=== PATIENT | female | born 1945 | race Hispanic/Latino ===

== ENCOUNTER 2017-01-16 11:59 | Emergency (ER) | payer MEDICARE, MEDICAID ==
[2017-01-16 11:59] VITALS: BMI 29.9
[2017-01-16 12:08] VITALS: BP 151/69; PULSE 77; RESP 18; TEMP 98.2; O2SAT 99
--- NOTE | 2017-01-16 12:22 | ED PDOC ---
Lower Extremity Pain/Injury Time Seen by Provider: 01/16/17 12:10 Chief Complaint (Nursing): Trauma Chief Complaint (Provider): Right foot pain History Per: Patient History/Exam Limitations: no limitations Onset/Duration Of Symptoms: Days (3) Current Symptoms Are (Timing): Still Present Additional Complaint(s): The patient is a 71yo female, presents to the ED for evaluation of right ankle pain, sustained after she fell 3 days ago and in the process, twisted her ankle. Patient reports she has been walking on the foot and states she takes her prescribed percocet an morphine for pain management. She denies any head or neck injury. She reports her tetanus is up to date. Patient offers no additional medical complaints. - Ankle/Foot Description Of Injury: Twisted Past Medical History Reviewed: Historical Data, Nursing Documentation, Vital Signs Vital Signs: Last Vital Signs Temp 98.2 F 01/16/17 12:04 Pulse 77 01/16/17 12:04 Resp 18 01/16/17 12:04 BP 151/69 H 01/16/17 12:04 Pulse Ox 99 01/16/17 12:04 - Medical History PMH: Anemia, Anxiety, Arthritis, Asthma, Depression, Diabetes (IDDM), Diverticulitis (s/p Erinn procedure), Fractures, HTN, Hypercholesterolemia, Hyperlipidemia, TIA Denies: CHF, COPD, HIV, Hypothyroidism, Chronic Kidney Disease, Rheumatoid Arthritis - Surgical History Surgical History: Back Surgery, Cholecystectomy - Family History Family History: States: Unknown Family Hx - Social History Current smoker - smoking cessation education provided: No Ex-Smoker (has not smoked in the last 12 months): No Alcohol: None Drugs: Denies - Home Medications Home Medications: Ambulatory Orders Medication Instructions Recorded Amino Acids/Protein Hydrolys 30 ml PO DAILY 06/06/16 [Prosource No Carb Liquid Pkt] Aspirin [Aspirin Chewable] 81 mg PO DAILY 06/06/16 Atorvastatin [Lipitor] 40 mg PO HS 06/06/16 Calcitonin ([place]) [Miacalcin] 1 spray SHERRILL DAILY 06/06/16 DULoxetine [Cymbalta] 30 mg PO DAILY 06/06/16 Dicyclomine [Bentyl] 10 mg PO QID 06/06/16 Ergocalciferol [Drisdol 50,000 1 cap PO QWK 06/06/16 Intl Units Cap] Ferrous Sulfate [Feosol] 325 mg PO DAILY 06/06/16 Lisinopril [Zestril] 10 mg PO DAILY 06/06/16 Montelukast [Singulair] 10 mg PO HS 06/06/16 Morphine [Morphine Immediate 30 mg PO BID PRN 06/06/16 Release Tab] Ondansetron [Zofran Tab] 4 mg PO Q6 PRN 06/06/16 Pantoprazole Sodium [Protonix] 40 mg PO DAILY 06/06/16 Sennosides/Docusate Sodium [Ra 1 tab PO HS 06/06/16 Senna Plus Tablet] Sertraline [Zoloft] 200 mg PO DAILY 06/06/16 Tramadol HCl [Ultram] 50 mg PO Q8H 06/06/16 Ciprofloxacin IV [Cipro] 400 mg IVPB Q12 #28 vial 06/17/16 Morphine [Morphine Extended 30 mg PO Q12 #30 tabsr 06/17/16 Release Tab] Vancomycin 1 GM [Vancomycin 1GM in 1 gm IVPB DAILY #14 bag 06/17/16 Normal Saline Addvantage] Zolpidem [Ambien] 5 mg PO HS #10 tab 06/17/16 metroNIDAZOLE 500mg/100ml NS 500 mg IVPB Q8H #42 bag 06/17/16 [Flagyl 500MG/100ML NS] Epoetin Josh [Procrit] 40,000 unit SC QWK #4 ml 06/18/16 Cephalexin [cephalexin] 500 mg PO QID #28 cap 01/16/17 - Allergies Allergies/Adverse Reactions: Allergies Allergy/AdvReac Type Severity Reaction Status Date / Time iodine Allergy RASH Verified 01/16/17 12:04 Sulfa (Sulfonamide Allergy RASH Verified 04/14/16 10:05 Antibiotics) Review of Systems ROS Statement: Except As Marked, All Systems Reviewed And Found Negative Musculoskeletal: Positive for: Foot Pain (right ankle pain). Negative for: Neck Pain Neurological: Negative for: Headache Physical Exam - Reviewed Nursing Documentation Reviewed: Yes Vital Signs Reviewed: Yes - Physical Exam Appears: Positive for: Non-toxic, No Acute Distress Head Exam: Positive for: ATRAUMATIC, NORMAL INSPECTION, NORMOCEPHALIC Neck: Positive for: Supple Cardiovascular/Chest: Positive for: Regular Rate, Rhythm Respiratory: Negative for: Respiratory Distress Pulses-Dorsalis Pedis (L): 2+ Pulses-Dorsalis Pedis (R): 2+ Back: Positive for: Other (Stage III sacral decubitus ulcer, minimal induration , serous drainage, no bleeding, no fluctuance) Extremity: Positive for: Tenderness (tenderness to right lateral malleolus with edema noted.), Deformity (no obvious deformity noted), Other (superficial abrasions at lateral metatarsal area. no induration or bleeding noted. 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 Negative for: Motor/Sensory Deficits - ECG O2 Sat by Pulse Oximetry: 99 (RA) Pulse Ox Interpretation: Normal - Physician Consult Information Time Consulting Physican Contacted: 14:19 Physician Contacted: Nichole Burton Outcome Of Conversation: Agrees with antibiotic Rx for sacral decub, recommends Keflex, told daughter to increase Vit D. Medical Decision Making Medical Decision Making: Time: 1217 Impression: Right ankle injury, sprain vs. fracture Plan: -- XR Right foot -- XR Right ankle Reassess Time: 1:15 --Spoke with podiatry, who will come and evaluate the patient Time: 1:33 XR Ankle FINDINGS: BONES: There is oblique lucency through the distal right fibula on the oblique and frontal view. It is uncertain as to whether this reflects healed fracture or recent fracture given the patient's diffuse osteopenia limiting the study. No ankle mortise widening is seen. No fracture is identified elsewhere. Calcaneus is intact. Prominent calcaneal spurs are noted. Soft tissue swelling is seen both anteriorly and laterally. JOINTS: No ankle mortise widening. Talar dome is normal in outline. Degenerative changes are seen in the ankle region. SOFT TISSUES: Lateral and anterior ankle soft tissue swelling. OTHER FINDINGS: None. IMPRESSION: Subtle linear oblique lucency through the distal fibular shaft which may suggest he indeterminate age fracture and should be correlated with patient's symptoms. Moderate soft tissue swelling overlying the lateral and anterior ankle region. Base of the 5th metatarsal is intact. XR Foot FINDINGS: BONES: Moderate hallux valgus deformity is seen. No appreciable fracture of the metatarsal or tarsal bones is noted. Phalanges are intact. No dislocation is seen. Base of the 5th metatarsal is intact. Cuboid bone is intact. Calcaneal spurs are identified. JOINTS: No dislocation. Subtalar joint is unremarkable. SOFT TISSUES: Nonspecific soft tissue swelling. OTHER FINDINGS: None. IMPRESSION: Soft tissue swelling. No appreciable fracture of the right foot. Please see ankle x-ray report same day. Scribe Attestation: Documented by Nancy Armenta and Arron Duarte acting as a scribe for Rosemary Gonzalez MD. Provider Attestation: All medical record entries made by the Scribe were at my direction and personally dictated by me. I have reviewed the chart and agree that the record accurately reflects my personal performance of the history, physical exam, medical decision making, and the department course for this patient. I have also personally directed, reviewed, and agree with the discharge instructions and disposition. Disposition - Clinical Impression Clinical Impression: Sacral decubitus ulcer, stage III, Fracture of distal fibula - Patient ED Disposition Is Patient to be Admitted: No Counseled Patient/Family Regarding: Studies Performed, Diagnosis, Need For Followup, Rx Given - Disposition Referrals: Podiatry Clinic [Outside] Nichole Burton MD [Family Provider] - Disposition: Routine/Home Disposition Time: 14:15 Condition: STABLE Prescriptions: Cephalexin [cephalexin] 500 mg PO QID #28 cap Instructions: Leg Fracture (ED), How to Prevent Pressure Ulcers (ED), Pressure Ulcer (ED) Forms: [employer] (Polish) - POA Present On Arrival: None
--- NOTE | 2017-01-16 13:32 | RAD ---
PROCEDURE: Right Foot Radiographs. HISTORY: Fall COMPARISON: None. FINDINGS: BONES: Moderate hallux valgus deformity is seen. No appreciable fracture of the metatarsal or tarsal bones is noted. Phalanges are intact. No dislocation is seen. Base of the 5th metatarsal is intact. Cuboid bone is intact. Calcaneal spurs are identified. JOINTS: No dislocation. Subtalar joint is unremarkable. SOFT TISSUES: Nonspecific soft tissue swelling. OTHER FINDINGS: None. IMPRESSION: Soft tissue swelling. No appreciable fracture of the right foot. Please see ankle x-ray report same day.
--- NOTE | 2017-01-16 13:35 | RAD ---
PROCEDURE: Right Ankle Radiographs. HISTORY: Fall COMPARISON: None FINDINGS: BONES: There is oblique lucency through the distal right fibula on the oblique and frontal view. It is uncertain as to whether this reflects healed fracture or recent fracture given the patient's diffuse osteopenia limiting the study. No ankle mortise widening is seen. No fracture is identified elsewhere. Calcaneus is intact. Prominent calcaneal spurs are noted. Soft tissue swelling is seen both anteriorly and laterally. JOINTS: No ankle mortise widening. Talar dome is normal in outline. Degenerative changes are seen in the ankle region. SOFT TISSUES: Lateral and anterior ankle soft tissue swelling. OTHER FINDINGS: None. IMPRESSION: Subtle linear oblique lucency through the distal fibular shaft which may suggest he indeterminate age fracture and should be correlated with patient's symptoms. Moderate soft tissue swelling overlying the lateral and anterior ankle region. Base of the 5th metatarsal is intact.
== END 2017-01-16 14:52 | disposition home or self-care (01) ==
LOC: H.ER 11:59
DX: S82.831A Other fracture of upper and lower end of right fibula, initial encounter for closed fracture (principal); W19.XXXA Unspecified fall, initial encounter; M77.30 Calcaneal spur, unspecified foot; L89.153 Pressure ulcer of sacral region, stage 3

== ENCOUNTER 2017-04-01 12:37 | Emergency (ER) | payer MEDICARE, MEDICAID ==
[2017-04-01 12:46] VITALS: BMI 36.6
[2017-04-01 12:47] VITALS: BP 145/69; PULSE 79; RESP 18; TEMP 98.3; O2SAT 99
--- NOTE | 2017-04-01 13:50 | ED PDOC ---
Lower Extremity Pain/Injury Time Seen by Provider: 04/01/17 12:51 Chief Complaint (Nursing): Lower Extremity Problem/Injury Chief Complaint (Provider): leg pain History Per: Patient History/Exam Limitations: no limitations Onset/Duration Of Symptoms: Days (x2 months) Current Symptoms Are (Timing): Still Present Additional Complaint(s): 71 year old female with previous medical history of hypertension, hypercholesterolemia, diabetes and TIA, who was referred to the emergency department by clinic today for a lower extremity ultrasound to evaluate for possibly blood clots following right-sided calf pain status post fall 2 months ago. Patient has a walking boot applied to right foot. PMD: Nichole Burton Past Medical History Reviewed: Historical Data, Nursing Documentation, Vital Signs Vital Signs: Last Vital Signs Temp 98.3 F 04/01/17 12:46 Pulse 79 04/01/17 12:46 Resp 18 04/01/17 12:46 BP 145/69 04/01/17 12:46 Pulse Ox 99 04/01/17 12:46 - Medical History PMH: Anemia, Anxiety, Arthritis, Asthma, Depression, Diabetes (IDDM), Diverticulitis (s/p Erinn procedure), Fractures, HTN, Hypercholesterolemia, Hyperlipidemia, TIA Denies: CHF, COPD, HIV, Hypothyroidism, Chronic Kidney Disease, Rheumatoid Arthritis - Surgical History Surgical History: Back Surgery, Cholecystectomy - Family History Family History: States: Unknown Family Hx - Home Medications Home Medications: Ambulatory Orders Medication Instructions Recorded Amino Acids/Protein Hydrolys 30 ml PO DAILY 06/06/16 [Prosource No Carb Liquid Pkt] Aspirin [Aspirin Chewable] 81 mg PO DAILY 06/06/16 Atorvastatin [Lipitor] 40 mg PO HS 06/06/16 Calcitonin ([place]) [Miacalcin] 1 spray SHERRILL DAILY 06/06/16 DULoxetine [Cymbalta] 30 mg PO DAILY 06/06/16 Dicyclomine [Bentyl] 10 mg PO QID 06/06/16 Ergocalciferol [Drisdol 50,000 1 cap PO QWK 06/06/16 Intl Units Cap] Ferrous Sulfate [Feosol] 325 mg PO DAILY 06/06/16 Lisinopril [Zestril] 10 mg PO DAILY 06/06/16 Montelukast [Singulair] 10 mg PO HS 06/06/16 Morphine [Morphine Immediate 30 mg PO BID PRN 06/06/16 Release Tab] Ondansetron [Zofran Tab] 4 mg PO Q6 PRN 06/06/16 Pantoprazole Sodium [Protonix] 40 mg PO DAILY 06/06/16 Sennosides/Docusate Sodium [Ra 1 tab PO HS 06/06/16 Senna Plus Tablet] Sertraline [Zoloft] 200 mg PO DAILY 06/06/16 Tramadol HCl [Ultram] 50 mg PO Q8H 06/06/16 Ciprofloxacin IV [Cipro] 400 mg IVPB Q12 #28 vial 06/17/16 Morphine [Morphine Extended 30 mg PO Q12 #30 tabsr 06/17/16 Release Tab] Vancomycin 1 GM [Vancomycin 1GM in 1 gm IVPB DAILY #14 bag 06/17/16 Normal Saline Addvantage] Zolpidem [Ambien] 5 mg PO HS #10 tab 06/17/16 metroNIDAZOLE 500mg/100ml NS 500 mg IVPB Q8H #42 bag 06/17/16 [Flagyl 500MG/100ML NS] Epoetin Josh [Procrit] 40,000 unit SC QWK #4 ml 06/18/16 Cephalexin [cephalexin] 500 mg PO QID #28 cap 01/16/17 - Allergies Allergies/Adverse Reactions: Allergies Allergy/AdvReac Type Severity Reaction Status Date / Time iodine Allergy RASH Verified 01/16/17 12:04 Sulfa (Sulfonamide Allergy RASH Verified 04/14/16 10:05 Antibiotics) Review of Systems ROS Statement: Except As Marked, All Systems Reviewed And Found Negative Musculoskeletal: Positive for: Leg Pain (right calf and right ankle), Foot Pain (rigth ankle) Physical Exam - Reviewed Nursing Documentation Reviewed: Yes Vital Signs Reviewed: Yes - Physical Exam Appears: Positive for: Well, Non-toxic, No Acute Distress Head Exam: Positive for: ATRAUMATIC Skin: Positive for: Normal Color Eye Exam: Positive for: Normal appearance ENT: Positive for: Normal ENT Inspection Neck: Positive for: Normal Extremity: Positive for: Calf Tenderness (Right ) Neurologic/Psych: Positive for: Alert, Oriented - ECG O2 Sat by Pulse Oximetry: 99 (RA) Pulse Ox Interpretation: Normal Medical Decision Making Medical Decision Making: Initial Impression: Right calf pain Initial Plan: * US duplex LE Us (-) for DVT Scribe Attestation: Documented by Lisa Pop, acting as a scribe for Josy Snider PA-C. Provider Scribe Attestation: All medical record entries made by the Scribe were at my direction and personally dictated by me. I have reviewed the chart and agree that the record accurately reflects my personal performance of the history, physical exam, medical decision making, and the department course for this patient. I have also personally directed, reviewed, and agree with the discharge instructions and disposition. Disposition - Clinical Impression Clinical Impression: Calf pain - Patient ED Disposition Is Patient to be Admitted: No Counseled Patient/Family Regarding: Diagnosis, Need For Followup - Disposition Disposition: Routine/Home Disposition Time: 14:33 Condition: GOOD Instructions: Muscle Cramp (ED) Forms: [employer] (Frisian)
--- NOTE | 2017-04-01 15:23 | US ---
PROCEDURE: Right lower extremity venous duplex Doppler. HISTORY: right calf pain Right ankle fracture approximately 2 months ago COMPARISON: None available. TECHNIQUE: Common femoral, superficial femoral, popliteal and posterior tibial veins were evaluated. Flow was assessed with color Doppler, compressibility, assessment of phasic flow and augmentation response. FINDINGS: COMMON FEMORAL VEIN: Unremarkable. SUPERFICIAL FEMORAL VEIN: Unremarkable. POPLITEAL VEIN: Unremarkable. POSTERIOR TIBIAL VEIN: Unremarkable. OTHER FINDINGS: None. IMPRESSION: No evidence of deep venous thrombosis in the right lower extremity.
== END 2017-04-01 14:48 | disposition home or self-care (01) ==
LOC: H.ER 12:37
DX: M79.605 Pain in left leg (principal); E11.9 Type 2 diabetes mellitus without complications; E78.00 Pure hypercholesterolemia, unspecified; F32.9 Major depressive disorder, single episode, unspecified; F41.9 Anxiety disorder, unspecified; I10 Essential (primary) hypertension; J45.909 Unspecified asthma, uncomplicated; Z79.4 Long term (current) use of insulin; Z79.82 Long term (current) use of aspirin; Z86.73 Personal history of transient ischemic attack (TIA), and cerebral infarction without residual deficits

== ENCOUNTER 2017-04-15 00:32 | Inpatient (IN) | payer MEDICARE, MEDICAID ==
[2017-04-15 00:32] VITALS: BMI 36.6
[2017-04-15] MEDS ORDERED: diaZEpam 10 mg/2 ml Inj IVP ONE (01:39)
--- NOTE | 2017-04-15 01:55 | ED PDOC ---
Upper Extremity Pain/Injury Time Seen by Provider: 04/15/17 00:49 Chief Complaint (Nursing): Upper Extremity Problem/Injury Chief Complaint (Provider): Upper Extremity Problem/Injury History Per: Patient History/Exam Limitations: no limitations Onset/Duration Of Symptoms: Other (x tonight) Current Symptoms Are (Timing): Still Present Additional Complaint(s): Autumn is a 71 year old female who was brought by EMS to the emergency department with wrist pain and swelling. Patient states she fell while going from wheelchair to bed and landed on her left wrist. Denies any other injuries PMD: Nichole Burton Past Medical History Reviewed: Historical Data, Nursing Documentation, Vital Signs Vital Signs: Last Vital Signs Temp 97.9 F 04/15/17 00:40 Pulse 98 H 04/15/17 00:40 Resp 18 04/15/17 00:40 BP 157/66 H 04/15/17 00:40 Pulse Ox 100 04/15/17 00:40 - Medical History PMH: Anemia, Anxiety, Arthritis, Asthma, Depression, Diabetes (IDDM), Diverticulitis (s/p Erinn procedure), Fractures, HTN, Hypercholesterolemia, Hyperlipidemia, TIA Denies: CHF, COPD, HIV, Hypothyroidism, Chronic Kidney Disease, Rheumatoid Arthritis - Surgical History Surgical History: Back Surgery, Cholecystectomy - Family History Family History: States: Unknown Family Hx - Social History Current smoker - smoking cessation education provided: No Alcohol: None Drugs: Denies - Home Medications Home Medications: Ambulatory Orders Medication Instructions Recorded Aspirin [Aspirin Chewable] 81 mg PO DAILY 06/06/16 Atorvastatin [Lipitor] 40 mg PO HS 06/06/16 Calcitonin ([place]) [Miacalcin] 1 spray SHERRILL DAILY 06/06/16 DULoxetine [Cymbalta] 60 mg PO DAILY 06/06/16 Ergocalciferol [Drisdol 50,000 1 cap PO QWK 06/06/16 Intl Units Cap] Ferrous Sulfate [Feosol] 325 mg PO DAILY 06/06/16 Lisinopril [Zestril] 20 mg PO DAILY 06/06/16 Montelukast [Singulair] 10 mg PO HS 06/06/16 Pantoprazole Sodium [Protonix] 40 mg PO DAILY 06/06/16 Sertraline [Zoloft] 150 mg PO DAILY 02/19/17 Morphine [Morphine Extended 30 mg PO Q12 #30 tabsr 06/17/16 Release Tab] Zolpidem [Ambien] 5 mg PO HS #10 tab 06/17/16 Acetaminophen/Oxycodone Hydr 1 tab PO Q12 PRN 04/15/17 [Percocet 10/325 mg Tab] Alendronate Sodium [Binosto] 70 mg PO QWK 04/15/17 Atorvastatin Calcium [Atorvastatin 40 mg PO HS 04/15/17 Calcium] Duloxetine HCl [Duloxetine HCl] 60 mg PO DAILY 04/15/17 Nystatin [Nyamyc] 100,000 unit TOP DAILY 04/15/17 - Allergies Allergies/Adverse Reactions: Allergies Allergy/AdvReac Type Severity Reaction Status Date / Time iodine Allergy RASH Verified 01/16/17 12:04 Sulfa (Sulfonamide Allergy RASH Verified 04/14/16 10:05 Antibiotics) Review of Systems ROS Statement: Except As Marked, All Systems Reviewed And Found Negative Musculoskeletal: Positive for: Other (Left wrist pain and swelling) Physical Exam - Reviewed Nursing Documentation Reviewed: Yes Vital Signs Reviewed: Yes - Physical Exam Appears: Positive for: Well, No Acute Distress Head Exam: Negative for: ATRAUMATIC (small forehead contusion) Skin: Positive for: Normal Color Eye Exam: Positive for: Normal appearance ENT: Positive for: Normal ENT Inspection Neck: Positive for: Normal Cardiovascular/Chest: Positive for: Regular Rate, Rhythm Respiratory: Positive for: Normal Breath Sounds Gastrointestinal/Abdominal: Positive for: Normal Exam Back: Positive for: Normal Inspection Extremity: Positive for: Normal ROM (Left Wrist: Limited ROM secondary to swelling and pain noted), Deformity, Swelling (Left wrist), Other (Distal pulse and sensation intact, R foot in CAM boot) Neurologic/Psych: 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 Negative for: Motor/Sensory Deficits - Laboratory Results Result Diagrams: 04/15/17 02:35 04/15/17 02:35 - ECG O2 Sat by Pulse Oximetry: 100 (RA) Pulse Ox Interpretation: Normal - Radiology X-Ray: Interpreted by Me X-Ray Interpretation: Fracture (Displaced fracture of the distal radius) Medical Decision Making Medical Decision Making: Time: 00:54 Impression: Wrist Fracture Plan: - Tylenol 325 mg Tab - Valium 5 mg IVP - Left Wrist X-Ray X-Ray interpreted by me. X-Ray shows displaced fracture of the distal radius. Time: 02:04 - Versed Inj Time: 02:10 - Type and Screen Time: 02:22 - Left Wrist X-Ray Time: 02:24 Patient lives alone and cannot care for herself while in CAM boot and now with radius fracture. Patient unsafe for discharge home. Will place in [facility] for PT, ortho consult. Case discussed with Dr. Carlos of . [facility] will be admitted as an inpatient for Med/Surg. Time: 02:25 - Chest X-Ray Scribe Attestation: Documented by Silver Dao, acting as a scribe for Nolan Simms MD Provider Scribe Attestation: All medical record entries made by the Scribe were at my direction and personally dictated by me. I have reviewed the chart and agree that the record accurately reflects my personal performance of the history, physical exam, medical decision making, and the department course for this patient. I have also personally directed, reviewed, and agree with the discharge instructions and disposition. Procedures - Splinting Location: L wrist Hand-Made Type: orthoglass Splint: volar Pre-Proc Neuro Vasc Exam: normal Post-Proc Neuro Vasc Exam: normal - Joint Reduction Conscious Sedation: No Reduction Attempts: 1 Pre-Procedure NV Exam: Yes Post Joint Reduction Film: joint reduced Progress: L Wrist Disposition - Clinical Impression Clinical Impression: Fracture of wrist - Patient ED Disposition Is Patient to be Admitted: Yes - Disposition Disposition Time: 02:30 Condition: IMPROVED
[2017-04-15] MEDS ORDERED: Midazolam 2 MG/2 ML VIAL IV STA (02:04)
--- NOTE | 2017-04-15 02:44 | CP.PCM.HP ---
History of Present Illness - History of Present Illness History of Present Illness: 71 yr old F brought to ED by EMS with complaint of left wrist pain and swelling s/p fall when transferring from wheelchair to bed on her own. PMHx includes chronic sacral decubitus ulcer, right fibular fracture (01/16/17), osteoporosis, anemia, arthritis, IDDM now controlled with diet, HTN, asthma, hypercholesterolemia, diverticulitis s/p Erinn's procedure, HLD, CVA with right sided deficits, peripheral neuropathy, depression, anxiety. Patient did not make it to the bed and used her Life Alert monitor, EMS came to the house and the form building supervisor opened the door. Patient reports she slipped due to her right foot CAM boot. Denies head trauma, loss of consciousness, weakness, dizziness, headache, chest pain, urinary incontinence or bleeding. Daughter at bedside reports the bruise on patients left forehead is new indicating head trauma with this fall. Patient otherwise denies homicidal or suicidal ideations. PMD: Dr. Burton (last visit 02/27/17; next appt 04/19/17) Specialists: Podiatry Clinic at [facility] (last visit 04/01/17), Percy Pryor - Psychiatrist (last visit 01/05/17, medications adjusted) PMHx: chronic sacral decubitus ulcer, right fibular fracture (01/16/17), right fibula fracture (osteoporosis, anemia, arthritis, IDDM now controlled with diet , HTN, asthma, hypercholesterolemia, diverticulitis s/p Erinn's procedure, HLD, CVA with right sided deficits, chronic back pain, peripheral neuropathy, depression, anxiety SurgHx: spinal surgery, Hartmanns' procedure (rectosigmoid colon resection with colostomy), multiple colostomies, cholecystectomy, hysterectomy, sacral wound debridement 06/10/2016 FMHx: mother secondary to diabetes complications, father was estranged SocHx: Denies smoking, Etoh or drugs, lives alone with 3 cats, has 1 daughter who visits her every 1-2 weeks, no other family support, receive home-maker services a few hours per day Medications: ASA 81mg PO QD, Vit D 50,000 unit PO weekly, Calcitonin 200 unit ACT solution-1 spray in each nostril BID, Alendronate 70mg PO weekly, Lisinopril 20mg PO QD, Ferrous sulfate 325mg PO QD, Bupropion Hcl 150mg PO QD, Duloxetine HCl 60mg PO QD, Sertraline 150mg PO QD, Zolpidem tartrate 5mg PO QHS , Nystatin powder apply as directed, Montelukast sodium 10mg PO QHS, Atorvastatin 40mg PO QHS Allergies: iodine (rash), sulfa drugs (rash) ED course: BP 157/66 mmHg, Pulse 98, Resp 18, Temp 97.9F, O2 sat 100% on room air -CXR: no active disease -Initial left wrist xray: displaced fracture of distal radius -Head CT: no hemorrhage or edema, normal osseous structure, small subcutaneous soft tissue swelling in the left frontal region, atrophy, chronic small vessel ischemic disease, low attenuation in the left basal ganglia consistent with old lacunar infarct -CBC: H/H 10.7/32.6, MCV 80.5, plts 125, neutrophils 82%; coags wnl, CMP wnl -ED tx: reduction of displaced fracture of distal radius by Dr. Simms s/p tylenol 650mg PO once, Valium 5mg IVP once, Versed 4mg IV once, Type and screen -repeat left wrist xray: aligned left distal radius fracture Present on Admission - Present on Admission Any Indicators Present on Admission: Yes History of DVT/PE: No History of Uncontrolled Diabetes: No Urinary Catheter: No Decubitus Ulcer Present: Yes (sacral) Decubitus Ulcer Stage: III Review of Systems - Review of Systems All systems: reviewed and no additional remarkable complaints except (for what is mentioned in the HPI) - Constitutional Constitutional: Frequent Falls. absent: Chills, Headache - EENT Eyes: absent: Blurred Vision Ears: absent: Dizziness Nose/Mouth/Throat: absent: Nasal Congestion, Sore Throat, Neck Pain - Cardiovascular Cardiovascular: absent: Chest Pain, Dyspnea - Respiratory Respiratory: absent: Cough, Hemoptysis - Gastrointestinal Gastrointestinal: absent: Change in Stool Character, Hematochezia, Nausea, Vomiting - Genitourinary Genitourinary: absent: Dysuria, Hematuria - Musculoskeletal Musculoskeletal: Back Pain (chronic) - Neurological Neurological: absent: Dizziness, Syncope - Psychiatric Psychiatric: Depression (stable). absent: Homicidal Ideation, Suicidal Ideation - Endocrine Endocrine: absent: Polydipsia, Polyuria - Hematologic/Lymphatic Hematologic: absent: Easy Bleeding, Easy Bruising Past Patient History - Infectious Disease Hx of Infectious Diseases: None - Past Medical History & Family History Past Medical History?: Yes - Past Social History Alcohol: None Drugs: Denies - CARDIAC Hx Congestive Heart Failure: No Hx Hypercholesterolemia: Yes Hx Hypertension: Yes - PULMONARY Hx Asthma: Yes Hx Chronic Obstructive Pulmonary Disease (COPD): No - NEUROLOGICAL Hx Transient Ischemic Attacks (TIA): Yes - HEENT Other/Comment: GLASSES - NEARSIGHTEDNESS. - RENAL Hx Chronic Kidney Disease: No - ENDOCRINE/METABOLIC Hx Hypothyroidism: No - HEMATOLOGICAL/ONCOLOGICAL Hx Anemia: Yes Hx Human Immunodeficiency Virus (HIV): No - INTEGUMENTARY Hx Cellulitis: Yes (BLE) Other/Comment: Sacral decubiti, RIGHT HEEL (DTI) - MUSCULOSKELETAL/RHEUMATOLOGICAL Hx Arthritis: Yes Hx Fractures: Yes Hx Rheumatoid Arthritis: No - GASTROINTESTINAL Hx Diverticulitis: Yes (s/p Erinn procedure) - GENITOURINARY/GYNECOLOGICAL Hx Genitourinary Disorders: No Other/Comment: bladder fistula - PSYCHIATRIC Hx Anxiety: Yes Hx Depression: Yes - SURGICAL HISTORY Hx Cholecystectomy: Yes - ANESTHESIA Hx Anesthesia: Yes Hx Anesthesia Reactions: No Hx Malignant Hyperthermia: No Meds Allergies/Adverse Reactions: Allergies Allergy/AdvReac Type Severity Reaction Status Date / Time iodine Allergy RASH Verified 01/16/17 12:04 Sulfa (Sulfonamide Allergy RASH Verified 04/14/16 10:05 Antibiotics) Physical Exam - Constitutional Appears: No Acute Distress - Head Exam Head Exam: NORMOCEPHALIC Additional comments: mild left forehead bruise and swelling 2x2cm, minimal tenderness - Eye Exam Eye Exam: EOMI, PERRL - ENT Exam ENT Exam: Mucous Membranes Moist - Neck Exam Neck exam: Positive for: Full Rom. Negative for: Lymphadenopathy - Respiratory Exam Respiratory Exam: Clear to Auscultation Bilateral, NORMAL BREATHING PATTERN. absent: Rales, Rhonchi, Wheezes - Cardiovascular Exam Cardiovascular Exam: REGULAR RHYTHM, +S1, +S2 - GI/Abdominal Exam GI & Abdominal Exam: Normal Bowel Sounds, Soft (obese, left colostomy bag- minimal brown stool) - Extremities Exam Extremities exam: Positive for: full ROM (of right arm and bilateral LE), pedal pulses present. Negative for: pedal edema Additional comments: left wrist in volar orthoglass splint and korey wrap, pain 6/10; right foot in CAM boot, left superficial ulcer on lateral 2nd toe at DIP area-no drainage - Back Exam Back exam: absent: CVA tenderness (L), CVA tenderness (R) Additional comments: 4cm length x 1cm width stage 3 sacral decubitus ulcer with serosanguinous drainage, non-malodorous - Neurological Exam Neurological exam: Alert, CN II-XII Intact, Oriented x3 - Psychiatric Exam Psychiatric exam: Normal Affect, Normal Mood - Skin Skin Exam: Abrasion (left forehead, left side of gluteus and thigh area), Warm Additional comments: 4cm length x 1cm width stage 3 sacral decubitus ulcer with serosanguinous drainage, non-malodorous Results - Vital Signs Recent Vital Signs: Last Vital Signs Temp 97.9 F 04/15/17 00:40 Pulse 98 H 04/15/17 00:40 Resp 18 04/15/17 00:40 BP 157/66 H 04/15/17 00:40 Pulse Ox 100 04/15/17 02:41 - Labs Result Diagrams: 04/15/17 02:35 04/15/17 02:35 Assessment & Plan - Assessment and Plan (Free Text) Assessment: 71 yr old F admitted for displaced fracture of left distal radius s/p fall at home. PMHx includes chronic sacral decubitus ulcer, right fibular fracture (01/16), osteoporosis, anemia, arthritis, IDDM now controlled with diet, HTN, asthma, hypercholesterolemia, diverticulitis s/p Erinn's procedure, HLD, CVA with right sided deficits, peripheral neuropathy, depression, anxiety. Patient lives alone. 1. Displaced fracture of distal radius s/p fall -Acute, closed, stable -Initial left wrist xray: displaced fracture of distal radius -Head CT: no hemorrhage or edema, normal osseous structure, small subcutaneous soft tissue swelling in the left frontal region, atrophy, chronic small vessel ischemic disease, low attenuation in the left basal ganglia consistent with old lacunar infarct -ED tx: reduction of displaced fracture of distal radius by Dr. Simms s/p tylenol 650mg PO once, Valium 5mg IVP once, Versed 4mg IV once, Type and screen -repeat left wrist xray: aligned left distal radius fracture -admit to med-surg: pain management, fall precautions, PT/OT -Orthopedic consult appreciated-Dr. Joaquin 2. Right fibular fracture (01/16/17) -stable, closed -patient follows with podiatry clinic regularly (last visit 04/01/17) -01/16/17 Right ankle fracture: subtle linear oblique lucency through distal fibular shaft which ana suggest indeterminate age fracture , moderate soft tissue swelling overlying lateral and anterior ankle region. Base of 5th metatarsal intact. -04/01/17 Right lower extremity duplex: no evidence of DVT -Podiatry consult appreciated-Dr. Pugh 3. Sacral Decubitus Ulcer -stage 3, chronic, healing -sacral wound debridement 06/10/2016 -Wound care consult appreciated -turn and reposition Q2hrs 4. HTN -controlled -continue home med: Lisinopril 20mg PO QD 5. Prediabetes -controlled, Hx of IDDM now diet controlled -labs 12/24/16: HbA1c 6.0; lipid panel: cholesterol 134, triglycerides 245, HDL 36 , VLDL 49 -continue Atorvastatin 40mg PO QHS 6. Mild Intermittent Asthma -controlled -continue home med: Montelukast sodium 10mg PO QHS 7. Anemia of chronic disease -chronic, stable, H/H 10.7/32.6, MCV 80.5 -labs 12/24/16: Ferritin 216; 06/16/16: iron 50 ug/dL, TIBC 167 ug/dL, % sat 30 -continue ferrous sulfate 325mg PO QD -in past heme/onc consulted and tx venofer (06/2016) 8. Thrombocytopenia -platelets 125 K/uL -chronic, intermittent, stable 9. Depression -chronic, stable, pt follows regularly with Percy Pryor -Psychiatrist (last visit 01/05/17, medications adjusted) -continue Bupropion Hcl 150mg PO QD, Duloxetine HCl 60mg PO QD, Sertraline 150mg PO QD -Pastoral care consult 10. Osteoporosis -continue home meds: Vit D 50,000 unit PO weekly, Calcitonin 200 unit ACT solution-1 spray in each nostril BID, Alendronate 70mg PO weekly 11. DVT prophylaxis -SCD's -Lovenox 40mg SC QD - Date & Time Date: 04/15/17 Time: 02:43
[2017-04-15 02:45] LABS: BASO % 0.4 % (0.0-2.0); EOS # 0.1 K/uL (0.0-0.7); EOS % 0.9 % (0.0-4.0); HEMOGLOBIN 10.7 g/dL (12.0-16.0); LYMPH # 0.7 K/uL (1.0-4.3); LYMPH % 9.9 % (20.0-40.0); MEAN CELL VOLUME 80.5 fl (81.0-99.0); MEAN CORPUSCULAR HEMOGLOBIN 26.5 pg (27.0-31.0); MEAN CORPUSCULAR HGB CONC 32.9 g/dL (33.0-37.0); MEAN PLATELET VOLUME 8.3 fl (7.2-11.7); MONO # 0.4 K/uL (0.0-0.8); MONO % 5.5 % (0.0-10.0); NEUT % 83.3 % (50.0-75.0); RBC 4.05 Mil/uL (3.80-5.20); RED CELL DISTRIBUTION WIDTH 15.8 % (11.5-14.5); WHITE BLOOD COUNT 7.2 K/uL (4.8-10.8)
[2017-04-15 02:57] LABS: CALCIUM 8.9 mg/dL (8.4-10.2)
[2017-04-15 03:02] LABS: INR 1.1 (0.9-1.2); PARTIAL THROMBOPLASTIN TIME 30.8 Seconds (25.6-37.1); PROTHROMBIN TIME 11.8 Seconds (9.8-13.1)
[2017-04-15 03:40] LABS: BASOPHIL 1 % (0-2); LYMPHOCYTE 10 % (20-50); MONOCYTE 5 % (0-10); NEUTROPHIL 82 % (42-75); PLATELET ESTIMATE SLIGHTLY DECREASED (NORMAL); REACTIVE LYMPHOCYTES 2 % (0-0); TOTAL CELLS COUNTED 100
[2017-04-15 03:42] LABS: ANISOCYTOSIS SLIGHT; OVALOCYTES SLIGHT; POIKILOCYTOSIS SLIGHT
[2017-04-15 03:43] LABS: PLATELET COUNT 125 K/uL (130-400)
[2017-04-15] MEDS ORDERED: ALENDRONATE 70 MG TAB PO SCH (04:00)
[2017-04-15] MEDS ORDERED: Ergocalciferol 50,000 Intl Units Cap PO SCH (04:00)
--- NOTE | 2017-04-15 04:49 | CT ---
EXAM: CT Head Without Intravenous Contrast EXAM DATE/TIME: 04/15/2017 3:25 AM CLINICAL HISTORY: 71 years old, female; Injury or trauma; Fall; Additional info: Head injury TECHNIQUE: Axial computed tomography images of the head/brain without intravenous contrast. All CT scans at this facility use one or more dose reduction techniques, viz.: automated exposure control; ma/kV adjustment per patient size (including targeted exams where dose is matched to indication; i.e. head); or iterative reconstruction technique. Coronal and sagittal reformatted images were created and reviewed. COMPARISON: No relevant prior studies available. FINDINGS: Small subcutaneous soft tissue swelling in the left frontal region. There is atrophy. There is chronic small vessel ischemic disease. There is low attenuation in the left basal ganglia consistent with old lacunar infarct. There is no hemorrhage or edema. No significant fluid in the sinuses. The osseous structures are normal. IMPRESSION: No acute findings.
[2017-04-15] MEDS: Oxycodone/Acetaminophen 5/325 mg Tab PO PRN (05:42)
[2017-04-15] MEDS: Morphine 30 mg SR Tab PO SCH ×2 (08:40→21:05)
[2017-04-15] MEDS: buPROPion SR 150 MG TABLET PO SCH (08:43)
[2017-04-15] MEDS: Pantoprazole 40 mg EC Tab PO SCH (08:43)
[2017-04-15] MEDS: Enoxaparin 40 mg Syringe SC SCH (08:46)
[2017-04-15] MEDS ORDERED: Influenza Vaccine 18yr & older 0.5 ML/45 MCG SYR IM ONE (09:00)
--- NOTE | 2017-04-15 10:54 | RAD ---
PROCEDURE: CHEST RADIOGRAPH, 1 VIEW HISTORY: fall COMPARISON: Comparison chest dated 06/07/2016. FINDINGS: LUNGS: Clear. PLEURA: No pneumothorax or pleural fluid seen. CARDIOVASCULAR: Heart size is mildly enlarged. OSSEOUS STRUCTURES: Mild multilevel degenerative spondylosis of the thoracic spine. Degenerative changes both shoulder girdles. VISUALIZED UPPER ABDOMEN: Normal. OTHER FINDINGS: None. IMPRESSION: No acute cardiopulmonary disease. Mild cardiomegaly.
--- NOTE | 2017-04-15 11:02 | RAD ---
PROCEDURE: Left Wrist Radiographs. HISTORY: fall, injury to wrist COMPARISON: None. FINDINGS: BONES: Current study reveals a comminuted intra-articular fracture of the distal left radius with mild dorsal angulation of the distal fragment. There is also a fracture of the distal ulna styloid with radial displacement of the distal fragment. . Surrounding soft tissue swelling. JOINTS: Mild multi articular degenerative osteoarthritis SOFT TISSUES: Normal. OTHER FINDINGS: None. IMPRESSION: Comminuted intra-articular fracture of the distal radius with dorsal angulation of the distal fragment. There is also fracture of the distal ulna styloid. The
--- NOTE | 2017-04-15 11:04 | RAD ---
PROCEDURE: Left Wrist Radiographs. HISTORY: post reduction COMPARISON: Comparison made with radiographs left wrist obtained earlier same day. FINDINGS: BONES: Status post closed reduction and placement placement fiberglass mango cast with satisfactory alignment of the distal radial fracture fragments. Fracture of the ulna styloid unchanged. . Mild surrounding soft tissue swelling again noted. JOINTS: Normal. No dislocation. SOFT TISSUES: Normal. OTHER FINDINGS: None. IMPRESSION: Status post closed reduction and placement placement fiberglass mango cast with satisfactory alignment of the distal radial fracture fragments. Fracture of the ulna styloid unchanged. . Mild surrounding soft tissue swelling again noted.
[2017-04-15] MEDS: Calcitonin 200 Int Units/Inh Nasal Spray (3.7 ml) NAS SCH (11:35)
--- NOTE | 2017-04-15 12:04 | CP.PCM.CON ---
History of Present Illness - History of Present Illness History of Present Illness: Orthopedic consultation Dr. Joaquin, Dr. Joaquin transferred care to Dr. Maya who accepted patient [id number] RHD complains of left wrist pain after fall. She has been in wheelchair with independent transfers after recent ankle injury. She lives by herself and is unable to get around safely at home without use of her left hand. Denies CP/sob preceding fall. Denies numbness/tingling. Review of Systems - Review of Systems All systems: reviewed and no additional remarkable complaints except - Constitutional Constitutional: As Per HPI - Musculoskeletal Musculoskeletal: As Per HPI - Integumentary Integumentary: As Per HPI - Neurological Neurological: As Per HPI - Hematologic/Lymphatic Hematologic: absent: As Per HPI, Easy Bleeding, Easy Bruising, Lymphadenopathy, Other Past Patient History - Infectious Disease Hx of Infectious Diseases: None - Past Medical History & Family History Past Medical History?: Yes - Past Social History Alcohol: None Drugs: Denies - CARDIAC Hx Congestive Heart Failure: No Hx Hypercholesterolemia: Yes Hx Hypertension: Yes - PULMONARY Hx Asthma: Yes Hx Chronic Obstructive Pulmonary Disease (COPD): No - NEUROLOGICAL Hx Transient Ischemic Attacks (TIA): Yes - HEENT Other/Comment: GLASSES - NEARSIGHTEDNESS. - RENAL Hx Chronic Kidney Disease: No - ENDOCRINE/METABOLIC Hx Hypothyroidism: No - HEMATOLOGICAL/ONCOLOGICAL Hx Anemia: Yes Hx Human Immunodeficiency Virus (HIV): No - INTEGUMENTARY Hx Cellulitis: Yes (BLE) Other/Comment: Sacral decubiti, RIGHT HEEL (DTI) - MUSCULOSKELETAL/RHEUMATOLOGICAL Hx Arthritis: Yes Hx Fractures: Yes Hx Rheumatoid Arthritis: No - GASTROINTESTINAL Hx Diverticulitis: Yes (s/p Erinn procedure) - GENITOURINARY/GYNECOLOGICAL Hx Genitourinary Disorders: No Other/Comment: bladder fistula - PSYCHIATRIC Hx Anxiety: Yes Hx Depression: Yes - SURGICAL HISTORY Hx Cholecystectomy: Yes - ANESTHESIA Hx Anesthesia: Yes Hx Anesthesia Reactions: No Hx Malignant Hyperthermia: No Meds Allergies/Adverse Reactions: Allergies Allergy/AdvReac Type Severity Reaction Status Date / Time iodine Allergy RASH Verified 01/16/17 12:04 Sulfa (Sulfonamide Allergy RASH Verified 04/14/16 10:05 Antibiotics) - Medications Medications: Current Medications Acetaminophen (Tylenol 325mg Tab) 650 mg PO Q6 PRN PRN Reason: Pain, Mild (1-3) Alendronate Sodium (Fosamax) 70 mg PO QWK [facility] Aspirin (Aspirin Chewable) 81 mg PO DAILY [facility] Last Admin: 04/15/17 08:44 Dose: 81 mg Atorvastatin Calcium (Lipitor) 40 mg PO HS [facility] Bupropion HCl (Wellbutrin Sr 150 Mg) 150 mg PO DAILY [facility] Last Admin: 04/15/17 08:43 Dose: 150 mg Calcitonin Calder (Miacalcin) 200 intlu SHERRILL DAILY [facility] Last Admin: 04/15/17 11:35 Dose: 1 spr Duloxetine HCl (Cymbalta) 60 mg PO DAILY [facility] Last Admin: 04/15/17 08:44 Dose: 60 mg Enoxaparin Sodium (Lovenox) 40 mg SC DAILY [facility] PRN Reason: Protocol Last Admin: 04/15/17 08:46 Dose: 40 mg Ergocalciferol (Drisdol 50,000 Intl Units Cap) 1 cap PO QWK [facility] Ferrous Sulfate (Feosol) 325 mg PO DAILY [facility] Last Admin: 04/15/17 09:45 Dose: 325 mg Lisinopril (Zestril) 20 mg PO DAILY [facility] Last Admin: 04/15/17 08:44 Dose: 20 mg Montelukast Sodium (Singulair) 10 mg PO HS [facility] Morphine Sulfate (Morphine Extended Release Tab) 30 mg PO Q12 [facility] Last Admin: 04/15/17 08:40 Dose: 30 mg Morphine Sulfate (Morphine Sulfate) 10 mg PO Q4 PRN PRN Reason: Pain, severe (8-10) Nystatin (Nystop Topical Powder) 1 applic TOP DAILY [facility] Last Admin: 04/15/17 08:46 Dose: 1 applic Oxycodone/Acetaminophen (Percocet 5/325 Mg Tab) 1 tab PO Q4 PRN PRN Reason: Pain, moderate (4-7) Stop: 04/18/17 05:07 Last Admin: 04/15/17 05:42 Dose: 1 tab Pantoprazole Sodium (Protonix Ec Tab) 40 mg PO DAILY [facility] Last Admin: 04/15/17 08:43 Dose: 40 mg Sertraline HCl (Zoloft) 150 mg PO DAILY [facility] Last Admin: 04/15/17 08:45 Dose: 150 mg Zolpidem Tartrate (Ambien) 5 mg PO HS [facility] Physical Exam - Constitutional Appears: Well, No Acute Distress - Head Exam Head Exam: ATRAUMATIC - Respiratory Exam Respiratory Exam: NORMAL BREATHING PATTERN - Extremities Exam Additional comments: LUE: noted swelling to fingers.s +ROM fingers, thumb, sensation intact, volar splint intact, well padded u splint applied over splint. fingers warm cap refill < 2 sec - Neurological Exam Neurological exam: Alert, Oriented x3 - Psychiatric Exam Psychiatric exam: Normal Affect, Normal Mood - Skin Skin Exam: Dry, Intact, Normal Color, Warm Results - Vital Signs Recent Vital Signs: Last Vital Signs Temp 97.3 F L 04/15/17 07:38 Pulse 90 04/15/17 10:53 Resp 18 04/15/17 07:38 BP 142/75 04/15/17 08:44 Pulse Ox 95 04/15/17 10:53 - Labs Result Diagrams: 04/15/17 02:35 04/15/17 02:35 Labs: Laboratory Results - last 24 hr 04/15/17 04/15/17 04/15/17 02:35 02:35 02:35 WBC 7.2 RBC 4.05 Hgb 10.7 L Hct 32.6 L MCV 80.5 L MCH 26.5 L MCHC 32.9 L RDW 15.8 H Plt Count 125 L MPV 8.3 Neut % (Auto) 83.3 H Lymph % (Auto) 9.9 L Hooker % (Auto) 5.5 Eos % (Auto) 0.9 Baso % (Auto) 0.4 Neut # 6.0 Lymph # 0.7 L Hooker # 0.4 Eos # 0.1 Baso # 0.0 Neutrophils % (Manual) 82 H Lymphocytes % (Manual) 10 L Reactive Lymphs % 2 H Monocytes % (Manual) 5 Basophils % (Manual) 1 Platelet Estimate Slightly decreased L Poikilocytosis (manual Slight Anisocytosis (manual) Slight Ovalocytes Slight PT 11.8 INR 1.1 APTT 30.8 Sodium 144 Potassium 4.3 Chloride 108 H Carbon Dioxide 29 Anion Gap 11 BUN 24 H Creatinine 1.1 Est GFR ( Amer) 59 Est GFR (Non-Af Amer) 49 POC Glucose (mg/dL) Random Glucose 141 H Calcium 8.9 Blood Type Antibody Screen BBK History Checked 04/15/17 04/15/17 04/15/17 02:35 05:28 10:37 WBC RBC Hgb Hct MCV MCH MCHC RDW Plt Count MPV Neut % (Auto) Lymph % (Auto) Hooker % (Auto) Eos % (Auto) Baso % (Auto) Neut # Lymph # Hooker # Eos # Baso # Neutrophils % (Manual) Lymphocytes % (Manual) Reactive Lymphs % Monocytes % (Manual) Basophils % (Manual) Platelet Estimate Poikilocytosis (manual Anisocytosis (manual) Ovalocytes PT INR APTT Sodium Potassium Chloride Carbon Dioxide Anion Gap BUN Creatinine Est GFR ( Amer) Est GFR (Non-Af Amer) POC Glucose (mg/dL) 119 H 134 H Random Glucose Calcium Blood Type B POSITIVE Antibody Screen Negative BBK History Checked Patient has bt - Impressions Impression: atient Name / ID : JOSE LEAHY / [id number] Exam Date : 04/15/2017 02:27:12 ( Approved ) Study Comment : Sex / Age : F / [id number] Creator : Piyush Gamble MD Dictator : Product Promoter Sales Person : Professional Housing Consultant : Piyush Gamble MD Approver2 : Report Date : 04/15/2017 11:02:55 My Comment : PROCEDURE: Left Wrist Radiographs. HISTORY: post reduction COMPARISON: Comparison made with radiographs left wrist obtained earlier same day. FINDINGS: BONES: Status post closed reduction and placement placement fiberglass mango cast with satisfactory alignment of the distal radial fracture fragments. Fracture of the ulna styloid unchanged. . Mild surrounding soft tissue swelling again noted. JOINTS: Normal. No dislocation. SOFT TISSUES: Normal. OTHER FINDINGS: None. IMPRESSION: Status post closed reduction and placement placement fiberglass mango cast with satisfactory alignment of the distal radial fracture fragments. Fracture of the ulna styloid unchanged. . Mild surrounding soft tissue swelling again noted. Assessment & Plan (1) Closed fracture of left distal radius Assessment and Plan: repeat xrays in splint pre and post reduction imaging reviewed with Dr. Maya, acceptable position will f/u repeat xrays as ER placed only volar splint post reduction elevation at all times NWB SHIVANI keep splint dry and intact patient orthopedically stable for d/c and to f/u in office as outpatient patient for rehab referral as lives alone d/w Dr. Maya, agrees with above Status: Acute (2) Displaced fracture of left ulna styloid process, initial encounter for closed fracture Status: Acute
--- NOTE | 2017-04-15 14:07 | RAD ---
PROCEDURE: Left Wrist Radiographs. HISTORY: distal radius fracture, repeat COMPARISON: Left wrist 04/15/2017 2:28 a.m.. FINDINGS: BONES: Partial cast is again seen obscuring fine bony and soft-tissue detail status post close reduction of distal radial fracture. Ulnar styloid fracture again evident. Both fractures appear unchanged in appearance. No distracted carpal bone fractures identified. JOINTS: Normal. No dislocation. SOFT TISSUES: Local soft tissue edema is seen related to the fracture sites. OTHER FINDINGS: None. IMPRESSION: Stable ulnar styloid and distal radial fractures as defined above. No dislocation.
[2017-04-15] MEDS: Morphine Sulfate 10 MG/0.5 ML SYR PO PRN (14:12)
--- NOTE | 2017-04-15 15:09 | RAD ---
PROCEDURE: Right Ankle Radiographs. HISTORY: s/p cam boot COMPARISON: None FINDINGS: BONES: No definitive acute fractures identified throughout the right ankle. A fracture of the distal right fibula/lateral malleolus is again appreciate but now with callus formation indicating intermediate stage of healing. The ankle mortise appears intact grossly. Soft tissue edema appears to markedly reduced in the interval. Diffuse osteopenia suggests osteoporosis. JOINTS: No subluxation or dislocation. The talar dome is intact. Limited degenerative sclerosis appreciated throughout the articular cortex of the ankle and visualized hindfoot/midfoot joints. SOFT TISSUES: Normal. OTHER FINDINGS: None. IMPRESSION: Fracture of the right lateral malleolus/ distal fibula identified at an intermediate stage of healing in the interval. No definitive acute fracture appreciable. No dislocation identified. Diffuse osteopenia suggests osteoporosis.
--- NOTE | 2017-04-15 15:13 | RAD ---
PROCEDURE: Right Foot Radiographs. HISTORY: Prior right foot radiographs 01/16/2017. COMPARISON: None. FINDINGS: BONES: No acute fracture of the right foot is appreciated and there is no dislocation. Diffuse osteopenia suggests osteoporosis. degenerative changes seen on a [id number] basis throughout the joints of the foot diffusely but is severe at the 1st metatarsal phalangeal joint. Mild hallux valgus deformity identified. SOFT TISSUES: Unremarkable. OTHER FINDINGS: Fracture of the lateral malleolus is identified and immediate stage of healing and is addressed in more depth in a separate right ankle radiograph series also performed 04/15/2017. IMPRESSION: No acute fracture dislocation right foot. Diffuse osteopenia suggests osteoporosis. Diffuse degenerative changes seen throughout the right foot as well. Right lateral malleolar fracture is reiterated but is addressed in more detail in separate right ankle radiograph report also performed 04/15/2017.
--- NOTE | 2017-04-15 18:08 | CP.PCM.CON ---
History of Present Illness - History of Present Illness History of Present Illness: Podiatry Consult Note - Dr. Wade 71 year old female patient seen and evaluated at bedside for right fibular fracture and left toe wound. Patient OOB in chair at time of visit with CAM walker to right foot. Patient hemodynamically stable and NAD. Patient well known to podiatry service regarding her right fibular fracture. Patient denies any pain to her right ankle today, states she has been wearing the CAM walker to her RLE however admits to difficulty when transferring to and from her wheelchair. Patient also complains of a wound to the top of her left 2nd digit; unknown to patient when it first appeared as she has no feeling in both feet. Denies any trauma to her toe. Denies N/V/F/D/C/SOB/calf pain. Review of Systems - Review of Systems All systems: reviewed and no additional remarkable complaints except (as per HPI ) Past Patient History - Infectious Disease Hx of Infectious Diseases: None - Past Medical History & Family History Past Medical History?: Yes - Past Social History Alcohol: None Drugs: Denies - CARDIAC Hx Cardiac Disorders: Yes Hx Congestive Heart Failure: No Hx Hypercholesterolemia: Yes Hx Hypertension: Yes - PULMONARY Hx Chronic Obstructive Pulmonary Disease (COPD): No - NEUROLOGICAL HX Cerebrovascular Accident: Yes - HEENT Other/Comment: GLASSES - NEARSIGHTEDNESS. - RENAL Hx Renal Failure: No - ENDOCRINE/METABOLIC Hx Diabetes Mellitus Type 1: No Hx Diabetes Mellitus Type 2: Yes Hx Hypothyroidism: No - HEMATOLOGICAL/ONCOLOGICAL Hx Anemia: Yes Hx Human Immunodeficiency Virus (HIV): No - INTEGUMENTARY Hx Cellulitis: Yes (BLE) Other/Comment: Sacral decubiti, RIGHT HEEL (DTI) - MUSCULOSKELETAL/RHEUMATOLOGICAL Hx Arthritis: Yes Hx Rheumatoid Arthritis: No - GASTROINTESTINAL Hx Diverticulitis: Yes (s/p Erinn procedure) - GENITOURINARY/GYNECOLOGICAL Hx Genitourinary Disorders: No Other/Comment: bladder fistula - PSYCHIATRIC Hx Anxiety: Yes Hx Depression: Yes - SURGICAL HISTORY Hx Cholecystectomy: Yes - ANESTHESIA Hx Anesthesia: Yes Hx Anesthesia Reactions: No Hx Malignant Hyperthermia: No Meds Allergies/Adverse Reactions: Allergies Allergy/AdvReac Type Severity Reaction Status Date / Time iodine Allergy RASH Verified 01/16/17 12:04 Sulfa (Sulfonamide Allergy RASH Verified 04/14/16 10:05 Antibiotics) - Medications Medications: Current Medications Acetaminophen (Tylenol 325mg Tab) 650 mg PO Q6 PRN PRN Reason: Pain, Mild (1-3) Alendronate Sodium (Fosamax) 70 mg PO QWK [facility] Aspirin (Aspirin Chewable) 81 mg PO DAILY [facility] Last Admin: 04/15/17 08:44 Dose: 81 mg Atorvastatin Calcium (Lipitor) 40 mg PO HS [facility] Bupropion HCl (Wellbutrin Sr 150 Mg) 150 mg PO DAILY [facility] Last Admin: 04/15/17 08:43 Dose: 150 mg Calcitonin [place] (Miacalcin) 200 intlu [place]ER[place] DAILY [facility] Last Admin: 04/15/17 11:35 Dose: 1 spr Duloxetine HCl (Cymbalta) 60 mg PO DAILY [facility] Last Admin: 04/15/17 08:44 Dose: 60 mg Enoxaparin Sodium (Lovenox) 40 mg SC DAILY [facility] PRN Reason: Protocol Last Admin: 04/15/17 08:46 Dose: 40 mg Ergocalciferol (Drisdol 50,000 Intl Units Cap) 1 cap PO QWK [facility] Ferrous Sulfate (Feosol) 325 mg PO DAILY [facility] Last Admin: 04/15/17 09:45 Dose: 325 mg Lisinopril (Zestril) 20 mg PO DAILY [facility] Last Admin: 04/15/17 08:44 Dose: 20 mg Montelukast Sodium (Singulair) 10 mg PO HS [facility] Morphine Sulfate (Morphine Extended Release Tab) 30 mg PO Q12 [facility] Last Admin: 04/15/17 08:40 Dose: 30 mg Morphine Sulfate (Morphine Sulfate) 10 mg PO Q4 PRN PRN Reason: Pain, severe (8-10) Last Admin: 04/15/17 14:12 Dose: 10 mg Nystatin (Nystop Topical Powder) 1 applic TOP DAILY [facility] Last Admin: 04/15/17 08:46 Dose: 1 applic Oxycodone/Acetaminophen (Percocet 5/325 Mg Tab) 1 tab PO Q4 PRN PRN Reason: Pain, moderate (4-7) Stop: 04/18/17 05:07 Last Admin: 04/15/17 05:42 Dose: 1 tab Pantoprazole Sodium (Protonix Ec Tab) 40 mg PO DAILY [facility] Last Admin: 04/15/17 08:43 Dose: 40 mg Sertraline HCl (Zoloft) 150 mg PO DAILY [facility] Last Admin: 04/15/17 08:45 Dose: 150 mg Zolpidem Tartrate (Ambien) 5 mg PO HS [facility] Physical Exam - Constitutional Appears: Well, Non-toxic, No Acute Distress - Extremities Exam Additional comments: VASC: DP and PT pulses 1/4 b/l. CFT <3 seconds to all digits x10. Temperature gradient warm to warm. No increase in warmth noted to left 2nd digit. Perimalleolar edema noted b/l. NEURO: Gross sensation absent bilaterally. DERM: Ulceration noted to dorsum of left 2nd digit - ulcer noted to have a 100% fibrous base and erythema periwound; absent drainage, purulence, fluctuance. Skin appears diffusely dry. ORTHO: No pain on palpation right lateral malleolus or left 2nd digit. No pain upon right ankle joint ROM. - Neurological Exam Neurological exam: Alert, Oriented x3 - Psychiatric Exam Psychiatric exam: Normal Affect, Normal Mood Results - Vital Signs Recent Vital Signs: Last Vital Signs Temp 98.9 F 04/15/17 16:14 Pulse 98 H 04/15/17 16:14 Resp 18 04/15/17 16:14 BP 144/67 04/15/17 16:14 Pulse Ox 97 04/15/17 16:14 - Labs Result Diagrams: 04/15/17 02:35 04/15/17 02:35 Labs: Laboratory Results - last 24 hr 04/15/17 04/15/17 04/15/17 02:35 02:35 02:35 WBC 7.2 RBC 4.05 Hgb 10.7 L Hct 32.6 L MCV 80.5 L MCH 26.5 L MCHC 32.9 L RDW 15.8 H Plt Count 125 L MPV 8.3 Neut % (Auto) 83.3 H Lymph % (Auto) 9.9 L [place] % (Auto) 5.5 Eos % (Auto) 0.9 Baso % (Auto) 0.4 Neut # 6.0 Lymph # 0.7 L [place] # 0.4 Eos # 0.1 Baso # 0.0 Neutrophils % (Manual) 82 H Lymphocytes % (Manual) 10 L Reactive Lymphs % 2 H Monocytes % (Manual) 5 Basophils % (Manual) 1 Platelet Estimate Slightly decreased L Poikilocytosis (manual Slight Anisocytosis (manual) Slight Ovalocytes Slight PT 11.8 INR 1.1 APTT 30.8 Sodium 144 Potassium 4.3 Chloride 108 H Carbon Dioxide 29 Anion Gap 11 BUN 24 H Creatinine 1.1 Est GFR ( Amer) 59 Est GFR (Non-Af Amer) 49 POC Glucose (mg/dL) Random Glucose 141 H Calcium 8.9 Blood Type Antibody Screen BBK History Checked 04/15/17 04/15/17 04/15/17 02:35 05:28 10:37 WBC RBC Hgb Hct MCV MCH MCHC RDW Plt Count MPV Neut % (Auto) Lymph % (Auto) [place] % (Auto) Eos % (Auto) Baso % (Auto) Neut # Lymph # [place] # Eos # Baso # Neutrophils % (Manual) Lymphocytes % (Manual) Reactive Lymphs % Monocytes % (Manual) Basophils % (Manual) Platelet Estimate Poikilocytosis (manual Anisocytosis (manual) Ovalocytes PT INR APTT Sodium Potassium Chloride Carbon Dioxide Anion Gap BUN Creatinine Est GFR ( Amer) Est GFR (Non-Af Amer) POC Glucose (mg/dL) 119 H 134 H Random Glucose Calcium Blood Type B POSITIVE Antibody Screen Negative BBK History Checked Patient has bt Assessment & Plan - Assessment and Plan (Free Text) Assessment: 71 year old female with 1) right lateral malleolus fracture and 2) left 2nd digit ulceration, stable Plan: Patient seen and evaluated Discussed with attending, Dr. Wade Afebrikaren, WBC 7.2 R ankle XR reviewed: fracture of right lateral malleolus/distal fibula at an intermediate stage of healing. Negative for acute fracture. No dislocation identified. Patient may discontinue use of CAM walker and WBAT in regular supportive shoe Physical therapy consulted for strengthening exercises, transfer training Bacitracin and bandaid applied to left 2nd digit - will continue with local wound care Stable per podiatry standpoint Podiatry will continue to follow patient while in house
[2017-04-16] MEDS: Morphine Sulfate 10 MG/0.5 ML SYR PO PRN (06:27)
[2017-04-16 06:58] LABS: HEMOGLOBIN 10.2 g/dL (12.0-16.0); MEAN CELL VOLUME 81.7 fl (81.0-99.0); MEAN CORPUSCULAR HGB CONC 31.8 g/dL (33.0-37.0); RBC 3.93 Mil/uL (3.80-5.20); RED CELL DISTRIBUTION WIDTH 16.3 % (11.5-14.5); WHITE BLOOD COUNT 6.6 K/uL (4.8-10.8)
--- NOTE | 2017-04-16 08:30 | CP.PCM.PN ---
Subjective - Date & Time of Evaluation Date of Evaluation: 04/16/17 Time of Evaluation: 08:27 - Subjective Subjective: 71 year old female with PMHx of vertebral fx, left wrist fx (acute) seen at bedside for R fibular fx and L toe wound. Patient is AAO x 3 and NAD, seen sleeping at time of visit. Patient denies any acute overnight events or any new onset pain to her fracture site or her wound site. Patient denies any acute N/V/ F/C/CP/SOB/posterior calf pain/urinary retention/constipation. Objective - Vital Signs/Intake and Output Vital Signs (last 24 hours): Temp Pulse Resp BP Pulse Ox 99.0 F 107 H 18 159/73 H 95 04/16/17 07:43 04/16/17 07:43 04/16/17 07:43 04/16/17 07:43 04/16/17 07:43 - Medications Medications: Current Medications Acetaminophen (Tylenol 325mg Tab) 650 mg PO Q6 PRN PRN Reason: Pain, Mild (1-3) Alendronate Sodium (Fosamax) 70 mg PO QWK [facility] Aspirin (Aspirin Chewable) 81 mg PO DAILY [facility] Last Admin: 04/15/17 08:44 Dose: 81 mg Atorvastatin Calcium (Lipitor) 40 mg PO HS [facility] Last Admin: 04/15/17 22:15 Dose: 40 mg Bupropion HCl (Wellbutrin Sr 150 Mg) 150 mg PO DAILY [facility] Last Admin: 04/15/17 08:43 Dose: 150 mg Calcitonin [place] (Miacalcin) 200 intlu SHERRILL DAILY [facility] Last Admin: 04/15/17 11:35 Dose: 1 spr Duloxetine HCl (Cymbalta) 60 mg PO DAILY [facility] Last Admin: 04/15/17 08:44 Dose: 60 mg Enoxaparin Sodium (Lovenox) 40 mg SC DAILY [facility] PRN Reason: Protocol Last Admin: 04/15/17 08:46 Dose: 40 mg Ergocalciferol (Drisdol 50,000 Intl Units Cap) 1 cap PO QWK [facility] Ferrous Sulfate (Feosol) 325 mg PO DAILY [facility] Last Admin: 04/15/17 09:45 Dose: 325 mg Lisinopril (Zestril) 20 mg PO DAILY [facility] Last Admin: 04/15/17 08:44 Dose: 20 mg Montelukast Sodium (Singulair) 10 mg PO HS [facility] Last Admin: 04/15/17 22:15 Dose: 10 mg Morphine Sulfate (Morphine Extended Release Tab) 30 mg PO Q12 [facility] Last Admin: 04/15/17 21:05 Dose: 30 mg Morphine Sulfate (Morphine Sulfate) 10 mg PO Q4 PRN PRN Reason: Pain, severe (8-10) Last Admin: 04/16/17 06:27 Dose: 10 mg Nystatin (Nystop Topical Powder) 1 applic TOP DAILY [facility] Last Admin: 04/15/17 08:46 Dose: 1 applic Oxycodone/Acetaminophen (Percocet 5/325 Mg Tab) 1 tab PO Q4 PRN PRN Reason: Pain, moderate (4-7) Stop: 04/18/17 05:07 Last Admin: 04/15/17 05:42 Dose: 1 tab Pantoprazole Sodium (Protonix Ec Tab) 40 mg PO DAILY [facility] Last Admin: 04/15/17 08:43 Dose: 40 mg Sertraline HCl (Zoloft) 150 mg PO DAILY [facility] Last Admin: 04/15/17 08:45 Dose: 150 mg Zolpidem Tartrate (Ambien) 5 mg PO HS [facility] Last Admin: 04/15/17 22:15 Dose: 5 mg - Labs Labs: 04/16/17 05:20 04/15/17 02:35 PT 11.8 Seconds (9.8-13.1) 04/15/17 02:35 INR 1.1 (0.9-1.2) 04/15/17 02:35 APTT 30.8 Seconds (25.6-37.1) 04/15/17 02:35 - Constitutional Appears: Well, Non-toxic, No Acute Distress - Extremities Exam Additional comments: VASC: DP and PT pulses 1/4 b/l. CFT <3 seconds to all digits x10. Temperature gradient warm to warm. No increase in warmth noted to left 2nd digit. Perimalleolar edema noted b/l. NEURO: Gross sensation absent bilaterally. DERM: Ulceration noted to dorsum of left 2nd digit - ulcer noted to have a 100% fibrous base and erythema periwound; absent drainage, purulence, fluctuance. Skin appears diffusely dry. ORTHO: No pain on palpation right lateral malleolus or left 2nd digit. No pain upon right ankle joint ROM. - Neurological Exam Neurological Exam: Alert, Awake, Oriented x3 - Psychiatric Exam Psychiatric exam: Normal Affect, Normal Mood Assessment and Plan - Assessment and Plan (Free Text) Assessment: 71 year old female with PMHx of vertebral fx, left wrist fx (acute) seen at bedside for R fibular fx and L toe wound Plan: Patient seen and evaluated Charts, labs, vitals reviewed: absent leukocytosis, afebrile Plan discussed with attending Dr. Wade No Bacitracin found at bedside so new tube ordered L second digit wound cleansed with saline and dressed with bandaid Will apply bacitracin on next dressing change Multipodus boots ordered R ankle XR reviewed: fracture of right lateral malleolus/distal fibula at an intermediate stage of healing. Negative for acute fracture. No dislocation identified. Patient stable per podiatry Podiatry will continue to follow while patient in house
[2017-04-16] MEDS: Pantoprazole 40 mg EC Tab PO SCH (09:23)
[2017-04-16] MEDS: Enoxaparin 40 mg Syringe SC SCH (09:23)
[2017-04-16] MEDS: buPROPion SR 150 MG TABLET PO SCH (09:24)
[2017-04-16] MEDS: Bacitracin OINT 15GM TOP SCH (09:26)
[2017-04-16] MEDS: Morphine 30 mg SR Tab PO SCH ×2 (09:28→21:10)
[2017-04-16] MEDS: Calcitonin 200 Int Units/Inh Nasal Spray (3.7 ml) NAS SCH (09:29)
--- NOTE | 2017-04-16 16:35 | CP.PCM.PN ---
Subjective - Date & Time of Evaluation Date of Evaluation: 04/16/17 Time of Evaluation: 16:59 - Subjective Subjective: CC: 71 yr old F admitted for displaced fracture of left distal radius s/p closed reduction. NAEO, remains stable. Pain controlled. Denies f/c/n/v/cp/ abd pain/ focal weakness. Objective - Vital Signs/Intake and Output Vital Signs (last 24 hours): Temp Pulse Resp BP Pulse Ox 99.0 F 97 H 17 148/69 95 04/16/17 16:17 04/16/17 16:17 04/16/17 16:17 04/16/17 16:17 04/16/17 16:17 - Medications Medications: Current Medications Acetaminophen (Tylenol 325mg Tab) 650 mg PO Q6 PRN PRN Reason: Pain, Mild (1-3) Alendronate Sodium (Fosamax) 70 mg PO QWK [facility] Aspirin (Aspirin Chewable) 81 mg PO DAILY [facility] Last Admin: 04/16/17 09:23 Dose: 81 mg Atorvastatin Calcium (Lipitor) 40 mg PO HS [facility] Last Admin: 04/15/17 22:15 Dose: 40 mg Bacitracin (Bacitracin Oint) 1 applic TOP DAILY [facility] Last Admin: 04/16/17 09:26 Dose: Not Given Bupropion HCl (Wellbutrin Sr 150 Mg) 150 mg PO DAILY [facility] Last Admin: 04/16/17 09:24 Dose: 150 mg Calcitonin [place] (Miacalcin) 200 intlu SHERRILL DAILY [facility] Last Admin: 04/16/17 09:29 Dose: 1 spr Duloxetine HCl (Cymbalta) 60 mg PO DAILY [facility] Last Admin: 04/16/17 09:24 Dose: 60 mg Enoxaparin Sodium (Lovenox) 40 mg SC DAILY [facility] PRN Reason: Protocol Last Admin: 04/16/17 09:23 Dose: 40 mg Ergocalciferol (Drisdol 50,000 Intl Units Cap) 1 cap PO QWK [facility] Ferrous Sulfate (Feosol) 325 mg PO DAILY [facility] Last Admin: 04/16/17 09:24 Dose: 325 mg Lisinopril (Zestril) 20 mg PO DAILY [facility] Last Admin: 04/16/17 09:24 Dose: 20 mg Montelukast Sodium (Singulair) 10 mg PO HS [facility] Last Admin: 04/15/17 22:15 Dose: 10 mg Morphine Sulfate (Morphine Extended Release Tab) 30 mg PO Q12 [facility] Last Admin: 04/16/17 09:28 Dose: 30 mg Morphine Sulfate (Morphine Sulfate) 10 mg PO Q4 PRN PRN Reason: Pain, severe (8-10) Last Admin: 04/16/17 06:27 Dose: 10 mg Nystatin (Nystop Topical Powder) 1 applic TOP DAILY [facility] Last Admin: 04/16/17 09:25 Dose: 1 applic Oxycodone/Acetaminophen (Percocet 5/325 Mg Tab) 1 tab PO Q4 PRN PRN Reason: Pain, moderate (4-7) Stop: 04/18/17 05:07 Last Admin: 04/15/17 05:42 Dose: 1 tab Pantoprazole Sodium (Protonix Ec Tab) 40 mg PO DAILY [facility] Last Admin: 04/16/17 09:23 Dose: 40 mg Sertraline HCl (Zoloft) 150 mg PO DAILY [facility] Last Admin: 04/16/17 09:24 Dose: 150 mg Zolpidem Tartrate (Ambien) 5 mg PO HS [facility] Last Admin: 04/15/17 22:15 Dose: 5 mg - Labs Labs: 04/16/17 05:20 04/15/17 02:35 PT 11.8 Seconds (9.8-13.1) 04/15/17 02:35 INR 1.1 (0.9-1.2) 04/15/17 02:35 APTT 30.8 Seconds (25.6-37.1) 04/15/17 02:35 - Constitutional Appears: No Acute Distress, Other (obese) - Head Exam Head Exam: ATRAUMATIC - Eye Exam Eye Exam: EOMI - ENT Exam ENT Exam: Mucous Membranes Moist - Neck Exam Neck Exam: Full ROM - Respiratory Exam Respiratory Exam: Clear to Ausculation Bilateral - Cardiovascular Exam Cardiovascular Exam: +S1, +S2 - GI/Abdominal Exam GI & Abdominal Exam: Soft Additional comments: colostomy in place on left - Extremities Exam Extremities Exam: Full ROM Additional comments: left volar splint in place - Neurological Exam Neurological Exam: Alert, Awake, Oriented x3 - Psychiatric Exam Psychiatric exam: Normal Affect, Normal Mood - Skin Skin Exam: Normal Color, Warm Assessment and Plan - Assessment and Plan (Free Text) Plan: 71 yr old F admitted for displaced fracture of left distal radius s/p fall at home. Displaced fracture of distal radius s/p fall -Acute, closed, stable -Initial left wrist xray: displaced fracture of distal radius -pain management, fall precautions, PT/OT -Orthopedic consult appreciated-Dr. Joaquin Right fibular fracture (01/16/17) -stable, closed -patient follows with podiatry clinic regularly (last visit 04/01/17) -Podiatry consult appreciated-Dr. Wade Sacral Decubitus Ulcer -stage 3, chronic, healing -sacral wound debridement 06/10/2016 -Wound care consult appreciated -turn and reposition Q2hrs HTN -controlled -continue home med: Lisinopril 20mg PO QD Prediabetes -controlled, Hx of IDDM now diet controlled -labs 12/24/16: HbA1c 6.0; lipid panel: cholesterol 134, triglycerides 245, HDL 36 , VLDL 49 -continue Atorvastatin 40mg PO QHS Mild Intermittent Asthma -controlled -continue home med: Montelukast sodium 10mg PO QHS Depression -chronic, stable, pt follows regularly with Percy Pryor -Psychiatrist (last visit 01/05/17, medications adjusted) -continue Bupropion Hcl 150mg PO QD, Duloxetine HCl 60mg PO QD, Sertraline 150mg PO QD Osteoporosis -continue home meds: Vit D 50,000 unit PO weekly, Calcitonin 200 unit ACT solution-1 spray in each nostril BID, Alendronate 70mg PO weekly DVT prophylaxis -SCD's -Lovenox 40mg SC QD
[2017-04-17 07:24] LABS: HEMOGLOBIN 9.5 g/dL (12.0-16.0); MEAN CELL VOLUME 81.6 fl (81.0-99.0); MEAN CORPUSCULAR HEMOGLOBIN 26.3 pg (27.0-31.0); MEAN CORPUSCULAR HGB CONC 32.2 g/dL (33.0-37.0); RBC 3.61 Mil/uL (3.80-5.20); RED CELL DISTRIBUTION WIDTH 16.3 % (11.5-14.5); WHITE BLOOD COUNT 7.1 K/uL (4.8-10.8)
[2017-04-17 07:42] LABS: ALBUMIN 3.2 g/dL (3.5-5.0); CALCIUM 8.3 mg/dL (8.4-10.2)
[2017-04-17] MEDS: Pantoprazole 40 mg EC Tab PO SCH (08:01)
[2017-04-17] MEDS: buPROPion SR 150 MG TABLET PO SCH (08:05)
[2017-04-17] MEDS: Enoxaparin 40 mg Syringe SC SCH (08:06)
[2017-04-17] MEDS: Morphine 30 mg SR Tab PO SCH ×2 (08:06→21:18)
[2017-04-17] MEDS: Bacitracin OINT 15GM TOP SCH (08:08)
[2017-04-17] MEDS: Calcitonin 200 Int Units/Inh Nasal Spray (3.7 ml) NAS SCH (08:53)
--- NOTE | 2017-04-17 12:11 | CP.PCM.PN ---
Subjective - Date & Time of Evaluation Date of Evaluation: 04/17/17 Time of Evaluation: 12:08 - Subjective Subjective: 71 year old female with PMHx of vertebral fx, left wrist fx (acute) seen at bedside for R fibular fx and L toe wound. Patient is AAO x 3 and NAD, resting comfortably in bed at time of visit. Patient denies any acute overnight events or any new onset pain to her fracture site or her wound site. Patient denies any acute N/V/F/C/CP/SOB/posterior calf pain/urinary retention/constipation. Objective - Vital Signs/Intake and Output Vital Signs (last 24 hours): Temp Pulse Resp BP Pulse Ox 99.2 F 91 H 20 148/71 95 04/17/17 08:11 04/17/17 08:11 04/17/17 08:11 04/17/17 08:11 04/17/17 08:11 - Medications Medications: Current Medications Acetaminophen (Tylenol 325mg Tab) 650 mg PO Q6 PRN PRN Reason: Pain, Mild (1-3) Alendronate Sodium (Fosamax) 70 mg PO QWK [facility] Aspirin (Aspirin Chewable) 81 mg PO DAILY [facility] Last Admin: 04/17/17 08:05 Dose: 81 mg Atorvastatin Calcium (Lipitor) 40 mg PO HS [facility] Last Admin: 04/16/17 21:09 Dose: 40 mg Bacitracin (Bacitracin Oint) 1 applic TOP DAILY [facility] Last Admin: 04/17/17 08:08 Dose: 1 applic Bupropion HCl (Wellbutrin Sr 150 Mg) 150 mg PO DAILY [facility] Last Admin: 04/17/17 08:05 Dose: 150 mg Calcitonin [place] (Miacalcin) 200 intlu SHERRILL DAILY [facility] Last Admin: 04/16/17 09:29 Dose: 1 spr Duloxetine HCl (Cymbalta) 60 mg PO DAILY [facility] Last Admin: 04/17/17 08:02 Dose: 60 mg Enoxaparin Sodium (Lovenox) 40 mg SC DAILY [facility] PRN Reason: Protocol Last Admin: 04/17/17 08:06 Dose: 40 mg Ergocalciferol (Drisdol 50,000 Intl Units Cap) 1 cap PO QWK [facility] Ferrous Sulfate (Feosol) 325 mg PO DAILY [facility] Last Admin: 04/17/17 08:02 Dose: 325 mg Lisinopril (Zestril) 20 mg PO DAILY [facility] Last Admin: 04/17/17 08:02 Dose: 20 mg Montelukast Sodium (Singulair) 10 mg PO HS [facility] Last Admin: 04/16/17 21:10 Dose: 10 mg Morphine Sulfate (Morphine Extended Release Tab) 30 mg PO Q12 [facility] Last Admin: 04/17/17 08:06 Dose: 30 mg Morphine Sulfate (Morphine Sulfate) 10 mg PO Q4 PRN PRN Reason: Pain, severe (8-10) Last Admin: 04/16/17 06:27 Dose: 10 mg Nystatin (Nystop Topical Powder) 1 applic TOP DAILY [facility] Last Admin: 04/17/17 08:17 Dose: 1 applic Oxycodone/Acetaminophen (Percocet 5/325 Mg Tab) 1 tab PO Q4 PRN PRN Reason: Pain, moderate (4-7) Stop: 04/18/17 05:07 Last Admin: 04/15/17 05:42 Dose: 1 tab Pantoprazole Sodium (Protonix Ec Tab) 40 mg PO DAILY [facility] Last Admin: 04/17/17 08:01 Dose: 40 mg Sertraline HCl (Zoloft) 150 mg PO DAILY [facility] Last Admin: 04/17/17 08:05 Dose: 150 mg Zolpidem Tartrate (Ambien) 5 mg PO HS [facility] Last Admin: 04/16/17 21:09 Dose: 5 mg - Labs Labs: 04/17/17 05:30 04/17/17 05:30 PT 11.8 Seconds (9.8-13.1) 04/15/17 02:35 INR 1.1 (0.9-1.2) 04/15/17 02:35 APTT 30.8 Seconds (25.6-37.1) 04/15/17 02:35 - Constitutional Appears: Well, Non-toxic, No Acute Distress - Extremities Exam Additional comments: VASC: DP and PT pulses 1/4 b/l. CFT <3 seconds to all digits x10. Temperature gradient warm to warm. No increase in warmth noted to left 2nd digit. NEURO: Gross sensation absent bilaterally. DERM: Ulceration noted to dorsum of left 2nd digit - ulcer noted to have a 100% fibrous base and erythema periwound; absent drainage, purulence, fluctuance. Skin appears diffusely dry. ORTHO: No pain on palpation right lateral malleolus or left 2nd digit. No pain upon right ankle joint ROM. - Neurological Exam Neurological Exam: Alert, Awake, Oriented x3 - Psychiatric Exam Psychiatric exam: Normal Affect, Normal Mood Assessment and Plan - Assessment and Plan (Free Text) Assessment: 71 year old female with PMHx of vertebral fx, left wrist fx (acute) seen at bedside for R fibular fx and stable L toe wound Plan: Patient seen and evaluated Charts, labs, vitals reviewed: absent leukocytosis, afebrile Plan discussed with attending Dr. Wade L second digit wound dressed with bacitracin and bandaid Multipodus boots in place R ankle XR reviewed: fracture of right lateral malleolus/distal fibula at an intermediate stage of healing. Negative for acute fracture. No dislocation identified. Patient stable per podiatry No plan for surgical intervention at this time Podiatry will continue to follow while patient in house
--- NOTE | 2017-04-17 13:26 | CP.PCM.PN ---
Subjective - Date & Time of Evaluation Date of Evaluation: 04/17/17 Time of Evaluation: 11:00 - Subjective Subjective: Patient seen and examined at bedside; no acute events overnight. Affected left upper extremity splinted, in sling, and elevated. Pt reports being able to use R hand (improving and regaining function since stroke), to feed self. Denies chest pain, shortness of breath, abdominal pain, leg/calf pain/swelling. Objective - Vital Signs/Intake and Output Vital Signs (last 24 hours): Temp Pulse Resp BP Pulse Ox 99.2 F 91 H 20 148/71 95 04/17/17 08:11 04/17/17 08:11 04/17/17 08:11 04/17/17 08:11 04/17/17 08:11 - Medications Medications: Current Medications Acetaminophen (Tylenol 325mg Tab) 650 mg PO Q6 PRN PRN Reason: Pain, Mild (1-3) Alendronate Sodium (Fosamax) 70 mg PO QWK [facility] Aspirin (Aspirin Chewable) 81 mg PO DAILY [facility] Last Admin: 04/17/17 08:05 Dose: 81 mg Atorvastatin Calcium (Lipitor) 40 mg PO HS [facility] Last Admin: 04/16/17 21:09 Dose: 40 mg Bacitracin (Bacitracin Oint) 1 applic TOP DAILY [facility] Last Admin: 04/17/17 08:08 Dose: 1 applic Bupropion HCl (Wellbutrin Sr 150 Mg) 150 mg PO DAILY [facility] Last Admin: 04/17/17 08:05 Dose: 150 mg Calcitonin [place] (Miacalcin) 200 intlu SHERRILL DAILY [facility] Last Admin: 04/16/17 09:29 Dose: 1 spr Duloxetine HCl (Cymbalta) 60 mg PO DAILY [facility] Last Admin: 04/17/17 08:02 Dose: 60 mg Enoxaparin Sodium (Lovenox) 40 mg SC DAILY [facility] PRN Reason: Protocol Last Admin: 04/17/17 08:06 Dose: 40 mg Ergocalciferol (Drisdol 50,000 Intl Units Cap) 1 cap PO QWK [facility] Ferrous Sulfate (Feosol) 325 mg PO DAILY [facility] Last Admin: 04/17/17 08:02 Dose: 325 mg Lisinopril (Zestril) 20 mg PO DAILY [facility] Last Admin: 04/17/17 08:02 Dose: 20 mg Montelukast Sodium (Singulair) 10 mg PO HS [facility] Last Admin: 04/16/17 21:10 Dose: 10 mg Morphine Sulfate (Morphine Extended Release Tab) 30 mg PO Q12 [facility] Last Admin: 04/17/17 08:06 Dose: 30 mg Morphine Sulfate (Morphine Sulfate) 10 mg PO Q4 PRN PRN Reason: Pain, severe (8-10) Last Admin: 04/16/17 06:27 Dose: 10 mg Nystatin (Nystop Topical Powder) 1 applic TOP DAILY [facility] Last Admin: 04/17/17 08:17 Dose: 1 applic Oxycodone/Acetaminophen (Percocet 5/325 Mg Tab) 1 tab PO Q4 PRN PRN Reason: Pain, moderate (4-7) Stop: 04/18/17 05:07 Last Admin: 04/15/17 05:42 Dose: 1 tab Pantoprazole Sodium (Protonix Ec Tab) 40 mg PO DAILY [facility] Last Admin: 04/17/17 08:01 Dose: 40 mg Sertraline HCl (Zoloft) 150 mg PO DAILY [facility] Last Admin: 04/17/17 08:05 Dose: 150 mg Zolpidem Tartrate (Ambien) 5 mg PO [facility] Last Admin: 04/16/17 21:09 Dose: 5 mg - Labs Labs: 04/17/17 05:30 04/17/17 05:30 PT 11.8 Seconds (9.8-13.1) 04/15/17 02:35 INR 1.1 (0.9-1.2) 04/15/17 02:35 APTT 30.8 Seconds (25.6-37.1) 04/15/17 02:35 - Constitutional Appears: No Acute Distress - Head Exam Head Exam: NORMAL INSPECTION, NORMOCEPHALIC - Eye Exam Eye Exam: EOMI, Normal appearance - ENT Exam ENT Exam: Mucous Membranes Moist - Neck Exam Neck Exam: Full ROM - Respiratory Exam Respiratory Exam: Clear to Ausculation Bilateral, NORMAL BREATHING PATTERN - Cardiovascular Exam Cardiovascular Exam: REGULAR RHYTHM, +S1, +S2 - GI/Abdominal Exam GI & Abdominal Exam: Soft, Normal Bowel Sounds Additional comments: colostomy bag in place on L side of abdomen; bowel sweat present - Extremities Exam Additional comments: L upper extremity in cast and sling - Neurological Exam Neurological Exam: Alert, Oriented x3 - Skin Skin Exam: Dry, Intact, Warm Assessment and Plan - Assessment and Plan (Free Text) Assessment: 71 yr old F with extensive pmh, including chronic sacral decubitus ulcer, right fibular fracture (01/16/17), osteoporosis, diabetes type2, HTN, asthma, hypercholesterolemia, diverticulitis s/p Erinn's procedure, HLD, CVA with right sided deficits, peripheral neuropathy, depression, anxiety admitted for displaced fracture of left distal radius s/p fall at home and awaiting rehab. Plan: 1. Displaced fracture of distal radius s/p fall -Acute, closed, stable -Initial left wrist Xray showed displaced fracture of distal radius; reduction done in ED; repeat left wrist xray: aligned left distal radius fracture -Head CT: no hemorrhage or edema, normal osseous structure, small subcutaneous soft tissue swelling in the left frontal region, atrophy, chronic small vessel ischemic disease, low attenuation in the left basal ganglia consistent with old lacunar infarct -Orthopedic consult appreciated- seen by VINCENZO Barton, for Dr. Maya who accepted transfer of care from Dr. Joaquin: pre and post reduction imaging reviewed and acceptable; repeat xrays in splint; continue elevation at all times; non- weightbearing left upper extremity; keep splint dry and intact. Patient orthopedically stable for d/c and to f/u in office outpatient. -Pain management, fall precautions, PT/OT 2. Right fibular fracture (01/16/17) -stable, closed -patient follows with podiatry clinic regularly (last visit 04/01/17) -01/16/17 Right ankle fracture: subtle linear oblique lucency through distal fibular shaft which ana suggest indeterminate age fracture , moderate soft tissue swelling overlying lateral and anterior ankle region. Base of 5th metatarsal intact. -04/01/17 Right lower extremity duplex: no evidence of DVT -Podiatry consult: xrays 04/15, fracture of right lateral malleolus/distal fibula at an intermediate stage of healing. Negative for acute fracture. No dislocation identified. Will continue to follow inhouse. 3. Sacral Decubitus Ulcer -stage 3, chronic, healing -sacral wound debridement 06/10/2016 -Wound care consult appreciated -turn and reposition Q2hrs 4. HTN -controlled -continue home med: Lisinopril 20mg PO QD 5. Prediabetes -controlled, Hx of IDDM now diet controlled -labs 12/24/16: HbA1c 6.0; lipid panel: cholesterol 134, triglycerides 245, HDL 36 , VLDL 49 -continue Atorvastatin 40mg PO QHS 6. Mild Intermittent Asthma -controlled -continue home med: Montelukast sodium 10mg PO QHS 7. Anemia of chronic disease -chronic, stable, H/H 10.7/32.6, MCV 80.5 -labs 12/24/16: Ferritin 216; 06/16/16: iron 50 ug/dL, TIBC 167 ug/dL, % sat 30 -continue ferrous sulfate 325mg PO QD -in past heme/onc consulted and tx papito (06/2016) 8. Thrombocytopenia -platelets 111 K/uL -chronic -monitor on CBC 9. Depression -chronic, stable, pt follows regularly with Percy Pryor -Psychiatrist (last visit 01/05/17, medications adjusted) -continue Bupropion Hcl 150mg PO QD, Duloxetine HCl 60mg PO QD, Sertraline 150mg PO QD -Pastoral care consult 10. Osteoporosis -continue home meds: Vit D 50,000 unit PO weekly, Calcitonin 200 unit ACT solution-1 spray in each nostril BID, Alendronate 70mg PO weekly 11. DVT prophylaxis -SCD's -Lovenox 40mg SC QD
[2017-04-17] MEDS: Oxycodone/Acetaminophen 5/325 mg Tab PO PRN (18:21)
[2017-04-18 06:43] LABS: HEMOGLOBIN 9.8 g/dL (12.0-16.0); MEAN CORPUSCULAR HGB CONC 33.8 g/dL (33.0-37.0); RBC 3.63 Mil/uL (3.80-5.20); RED CELL DISTRIBUTION WIDTH 16.4 % (11.5-14.5); WHITE BLOOD COUNT 5.5 K/uL (4.8-10.8)
[2017-04-18] MEDS: Enoxaparin 40 mg Syringe SC SCH (08:32)
[2017-04-18] MEDS: Pantoprazole 40 mg EC Tab PO SCH (08:33)
[2017-04-18] MEDS: buPROPion SR 150 MG TABLET PO SCH (08:35)
[2017-04-18] MEDS: Oxycodone/Acetaminophen 5/325 mg Tab PO PRN ×2 (08:48→15:54)
[2017-04-18] MEDS: Calcitonin 200 Int Units/Inh Nasal Spray (3.7 ml) NAS SCH (08:52)
[2017-04-18] MEDS: Bacitracin OINT 15GM TOP SCH (08:59)
[2017-04-18] MEDS: Morphine 30 mg SR Tab PO SCH ×2 (09:01→21:28)
--- NOTE | 2017-04-18 09:45 | CP.PCM.PN ---
Subjective - Date & Time of Evaluation Date of Evaluation: 04/18/17 Time of Evaluation: 09:37 - Subjective Subjective: No acute overnight events. Pt seen and examined by bedside this AM. Pt states that her pain is well controlled. Moving all extremities, and RUE is in cast, moving fingers. States that she would like to go to rehab and get physical therapy for her hand and residual weakness in right lower extremity. Denies chest pain, dyspnea, n/v/d/c and remains afebrile. Objective - Vital Signs/Intake and Output Vital Signs (last 24 hours): Temp Pulse Resp BP Pulse Ox 98.9 F 86 20 130/60 94 L 04/18/17 08:04 04/18/17 08:33 04/18/17 08:04 04/18/17 08:33 04/18/17 08:04 Intake and Output: 04/18/17 04/18/17 06:59 18:59 Intake Total 300 Output Total 0 Balance 300 - Medications Medications: Current Medications Acetaminophen (Tylenol 325mg Tab) 650 mg PO Q6 PRN PRN Reason: Pain, Mild (1-3) Alendronate Sodium (Fosamax) 70 mg PO QWK [facility] Aspirin (Aspirin Chewable) 81 mg PO DAILY [facility] Last Admin: 04/18/17 08:35 Dose: 81 mg Atorvastatin Calcium (Lipitor) 40 mg PO HS [facility] Last Admin: 04/17/17 21:19 Dose: 40 mg Bacitracin (Bacitracin Oint) 1 applic TOP DAILY [facility] Last Admin: 04/18/17 08:59 Dose: 1 applic Bupropion HCl (Wellbutrin Sr 150 Mg) 150 mg PO DAILY [facility] Last Admin: 04/18/17 08:35 Dose: 150 mg Calcitonin [place] (Miacalcin) 200 intlu [place]ERRILL DAILY [facility] Last Admin: 04/18/17 08:52 Dose: 1 spr Duloxetine HCl (Cymbalta) 60 mg PO DAILY [facility] Last Admin: 04/18/17 08:33 Dose: 60 mg Enoxaparin Sodium (Lovenox) 40 mg SC DAILY [facility] PRN Reason: Protocol Last Admin: 04/18/17 08:32 Dose: 40 mg Ergocalciferol (Drisdol 50,000 Intl Units Cap) 1 cap PO QWK [facility] Ferrous Sulfate (Feosol) 325 mg PO DAILY [facility] Last Admin: 04/18/17 08:34 Dose: 325 mg Lisinopril (Zestril) 20 mg PO DAILY [facility] Last Admin: 04/18/17 08:33 Dose: 20 mg Montelukast Sodium (Singulair) 10 mg PO HS [facility] Last Admin: 04/17/17 21:19 Dose: 10 mg Morphine Sulfate (Morphine Extended Release Tab) 30 mg PO Q12 [facility] Last Admin: 04/18/17 09:01 Dose: Not Given Morphine Sulfate (Morphine Sulfate) 10 mg PO Q4 PRN PRN Reason: Pain, severe (8-10) Last Admin: 04/16/17 06:27 Dose: 10 mg Nystatin (Nystop Topical Powder) 1 applic TOP DAILY [facility] Last Admin: 04/18/17 08:58 Dose: 1 applic Oxycodone/Acetaminophen (Percocet 5/325 Mg Tab) 1 tab PO Q4 PRN PRN Reason: Pain, moderate (4-7) Stop: 04/21/17 08:38 Last Admin: 04/18/17 08:48 Dose: 1 tab Pantoprazole Sodium (Protonix Ec Tab) 40 mg PO DAILY [facility] Last Admin: 04/18/17 08:33 Dose: 40 mg Sertraline HCl (Zoloft) 150 mg PO DAILY [facility] Last Admin: 04/18/17 08:34 Dose: 150 mg Zolpidem Tartrate (Ambien) 5 mg PO [facility] Last Admin: 04/17/17 22:57 Dose: 5 mg - Labs Labs: 04/18/17 06:30 04/17/17 05:30 PT 11.8 Seconds (9.8-13.1) 04/15/17 02:35 INR 1.1 (0.9-1.2) 04/15/17 02:35 APTT 30.8 Seconds (25.6-37.1) 04/15/17 02:35 - Constitutional Appears: Non-toxic, No Acute Distress, Other (:LUE in cast) - Head Exam Head Exam: ATRAUMATIC, NORMOCEPHALIC - Eye Exam Eye Exam: EOMI, Normal appearance - ENT Exam ENT Exam: Mucous Membranes Moist, Normal Exam - Neck Exam Neck Exam: Full ROM - Respiratory Exam Respiratory Exam: Clear to Ausculation Bilateral, NORMAL BREATHING PATTERN. absent: Wheezes - Cardiovascular Exam Cardiovascular Exam: REGULAR RHYTHM, +S1, +S2 - GI/Abdominal Exam GI & Abdominal Exam: Soft, Normal Bowel Sounds. absent: Tenderness Additional comments: colostomy bag noted in the RUQ, site is clean dry and intact. well healed old midline surgical scar noted - Extremities Exam Extremities Exam: Full ROM, Tenderness (in the RLE) Additional comments: Moving left shoulder and fingers. Swollen fingers in L - Neurological Exam Neurological Exam: Alert, Awake, Oriented x3 - Psychiatric Exam Psychiatric exam: Normal Affect, Normal Mood - Skin Skin Exam: Dry, Intact, Normal Color, Warm Additional comments: sacral ulcer Assessment and Plan - Assessment and Plan (Free Text) Assessment: Assessment/Plan: 71 YO F with PMH of chronic sacral decubitus ulcer, right fibular fracture (01/16), osteoporosis, DM II, HTN, asthma, hypercholesterolemia, diverticulitis s/ p Erinn's procedure, HLD, CVA with right sided deficits, peripheral neuropathy, depression, anxiety admitted for displaced fracture of left distal radius s/p fall at home. Awaiting rehab placement. 1. Displaced fracture of distal radius (L) s/p fall -Acute, closed, stable -Initial left wrist Xray showed displaced fracture of distal radius; reduction done in ED; repeat left wrist xray: aligned left distal radius fracture -Head CT: no hemorrhage or edema, normal osseous structure, low attenuation in the left basal ganglia consistent with old lacunar infarct -Orthopedic consult appreciated- seen by VINCENZO Barton, for Dr. Maya: pre and post reduction imaging reviewed and acceptable; repeat xrays in splint; continue elevation at all times; non-weightbearing left upper extremity; keep splint dry and intact. Patient orthopedically stable for d/c and to f/u in office outpatient. -Pain management, fall precautions, PT/OT 2. Right fibular fracture (01/16/17) -stable, closed -patient follows with podiatry clinic regularly (last visit 04/01/17) -01/16/17 Right ankle fracture: subtle linear oblique lucency through distal fibular shaft which may suggest indeterminate age fracture -04/01/17 Right lower extremity duplex: no evidence of DVT -Podiatry consult: xrays 04/15, fracture of right lateral malleolus/distal fibula at an intermediate stage of healing. Negative for acute fracture. No dislocation identified. Will continue to follow inhouse. 3. Sacral Decubitus Ulcer -stage 3, chronic, healing -sacral wound debridement 06/10/2016 -Wound care consult appreciated -turn and reposition Q2hrs 4. HTN -controlled -continue home med: Lisinopril 20mg PO QD 5. Prediabetes -controlled, Hx of IDDM now diet controlled -labs 12/24/16: HbA1c 6.0; lipid panel: cholesterol 134, triglycerides 245, HDL 36 , VLDL 49 -continue Atorvastatin 40mg PO QHS 6. Mild Intermittent Asthma -controlled -continue home med: Montelukast sodium 10mg PO QHS 7. Anemia of chronic disease -chronic, stable, H/H 10.7/32.6, MCV 80.5 -labs 12/24/16: Ferritin 216; 06/16/16: iron 50 ug/dL, TIBC 167 ug/dL, % sat 30 -continue ferrous sulfate 325mg PO QD -hx of venofer (06/2016) in past 8. Thrombocytopenia -chronic -platelets 111 K/uL, improved to 124 today 9. Depression -chronic, stable, pt follows regularly with Percy Pryor -Psychiatrist (last visit 01/05/17, medications adjusted) -continue Bupropion Hcl 150mg PO QD, Duloxetine HCl 60mg PO QD, Sertraline 150mg PO QD -Pastoral care consult 10. Osteoporosis -continue home meds: Vit D 50,000 unit PO weekly, Calcitonin 200 unit ACT solution-1 spray in each nostril BID, Alendronate 70mg PO weekly 11. DVT prophylaxis -SCD's -Lovenox 40mg SC QD
--- NOTE | 2017-04-18 15:00 | CP.PCM.PN ---
Subjective - Date & Time of Evaluation Date of Evaluation: 04/18/17 Time of Evaluation: 14:58 - Subjective Subjective: 71 year old female with PMHx of vertebral fx, left wrist fx (acute) seen at bedside for R fibular fx and L toe wound. Patient is AAO x 3 and NAD, resting comfortably in bed at time of visit. Patient denies any acute overnight events or any new onset pain to her fracture site or her wound site. Patient denies any acute N/V/F/C/CP/SOB/posterior calf pain/urinary retention/constipation. Objective - Vital Signs/Intake and Output Vital Signs (last 24 hours): Temp Pulse Resp BP Pulse Ox 98.9 F 86 20 130/60 94 L 04/18/17 08:04 04/18/17 08:33 04/18/17 08:04 04/18/17 08:33 04/18/17 08:04 Intake and Output: 04/18/17 04/18/17 06:59 18:59 Intake Total 300 Output Total 0 Balance 300 - Medications Medications: Current Medications Acetaminophen (Tylenol 325mg Tab) 650 mg PO Q6 PRN PRN Reason: Pain, Mild (1-3) Alendronate Sodium (Fosamax) 70 mg PO QWK [facility] Aspirin (Aspirin Chewable) 81 mg PO DAILY [facility] Last Admin: 04/18/17 08:35 Dose: 81 mg Atorvastatin Calcium (Lipitor) 40 mg PO HS [facility] Last Admin: 04/17/17 21:19 Dose: 40 mg Bacitracin (Bacitracin Oint) 1 applic TOP DAILY [facility] Last Admin: 04/18/17 08:59 Dose: 1 applic Bupropion HCl (Wellbutrin Sr 150 Mg) 150 mg PO DAILY [facility] Last Admin: 04/18/17 08:35 Dose: 150 mg Calcitonin [place] (Miacalcin) 200 intlu SHERRILL DAILY [facility] Last Admin: 04/18/17 08:52 Dose: 1 spr Duloxetine HCl (Cymbalta) 60 mg PO DAILY [facility] Last Admin: 04/18/17 08:33 Dose: 60 mg Enoxaparin Sodium (Lovenox) 40 mg SC DAILY [facility] PRN Reason: Protocol Last Admin: 04/18/17 08:32 Dose: 40 mg Ergocalciferol (Drisdol 50,000 Intl Units Cap) 1 cap PO QWK [facility] Ferrous Sulfate (Feosol) 325 mg PO DAILY [facility] Last Admin: 04/18/17 08:34 Dose: 325 mg Lisinopril (Zestril) 20 mg PO DAILY [facility] Last Admin: 04/18/17 08:33 Dose: 20 mg Montelukast Sodium (Singulair) 10 mg PO HS [facility] Last Admin: 04/17/17 21:19 Dose: 10 mg Morphine Sulfate (Morphine Extended Release Tab) 30 mg PO Q12 [facility] Last Admin: 04/18/17 09:01 Dose: Not Given Morphine Sulfate (Morphine Sulfate) 10 mg PO Q4 PRN PRN Reason: Pain, severe (8-10) Last Admin: 04/16/17 06:27 Dose: 10 mg Nystatin (Nystop Topical Powder) 1 applic TOP DAILY [facility] Last Admin: 04/18/17 08:58 Dose: 1 applic Oxycodone/Acetaminophen (Percocet 5/325 Mg Tab) 1 tab PO Q4 PRN PRN Reason: Pain, moderate (4-7) Stop: 04/21/17 08:38 Last Admin: 04/18/17 08:48 Dose: 1 tab Pantoprazole Sodium (Protonix Ec Tab) 40 mg PO DAILY [facility] Last Admin: 04/18/17 08:33 Dose: 40 mg Sertraline HCl (Zoloft) 150 mg PO DAILY [facility] Last Admin: 04/18/17 08:34 Dose: 150 mg Zolpidem Tartrate (Ambien) 5 mg PO HS [facility] Last Admin: 04/17/17 22:57 Dose: 5 mg - Labs Labs: 04/18/17 06:30 04/17/17 05:30 PT 11.8 Seconds (9.8-13.1) 04/15/17 02:35 INR 1.1 (0.9-1.2) 04/15/17 02:35 APTT 30.8 Seconds (25.6-37.1) 04/15/17 02:35 - Constitutional Appears: Well, Toxic, No Acute Distress - Extremities Exam Additional comments: VASC: DP and PT pulses 1/4 b/l. CFT <3 seconds to all digits x10. Temperature gradient warm to warm. No increase in warmth noted to left 2nd digit. NEURO: Gross sensation absent bilaterally. DERM: Ulceration noted to dorsum of left 2nd digit with overlying eschar; absent drainage, purulence, fluctuance. Skin appears diffusely dry. Overall, wound is improving with no signs of infection ORTHO: No pain on palpation right lateral malleolus or left 2nd digit. No pain upon right ankle joint ROM. - Neurological Exam Neurological Exam: Alert, Awake, Oriented x3 - Psychiatric Exam Psychiatric exam: Normal Affect, Normal Mood Assessment and Plan - Assessment and Plan (Free Text) Assessment: 71 year old female with PMHx of vertebral fx, left wrist fx (acute) seen at bedside for R fibular fx and stable L toe wound Plan: Patient seen and evaluated Charts, labs, vitals reviewed: absent leukocytosis, afebrile Plan discussed with attending Dr. Mauro Medina second digit wound dressed with bacitracin and bandaid Multipodus boots in place R ankle XR: fracture of right lateral malleolus/distal fibula at an intermediate stage of healing. Negative for acute fracture. No dislocation identified. Patient stable per podiatry No plan for surgical intervention at this time Podiatry will continue to follow while patient in house
[2017-04-18 23:38] VITALS: O2SAT 95
[2017-04-19] MEDS: Oxycodone/Acetaminophen 5/325 mg Tab PO PRN (04:49)
[2017-04-19 06:22] LABS: HEMOGLOBIN 9.4 g/dL (12.0-16.0); MEAN CELL VOLUME 80.3 fl (81.0-99.0); MEAN CORPUSCULAR HGB CONC 33.7 g/dL (33.0-37.0); RBC 3.49 Mil/uL (3.80-5.20); RED CELL DISTRIBUTION WIDTH 16.2 % (11.5-14.5); WHITE BLOOD COUNT 5.3 K/uL (4.8-10.8)
--- NOTE | 2017-04-19 08:35 | CP.PCM.DIS ---
Provider - Provider Date of Admission: 04/15/17 08:59 Attending physician: Nichole Burton MD Consults: 04/15/17 03:46 Pastoral Care Referral Routine Comment: Physician Instructions: Reason For Exam: spiritual care Time Spent in preparation of Discharge (in minutes): 30 Hospital Course - Lab Results Lab Results: Most Recent Lab Values WBC 5.3 K/uL (4.8-10.8) 04/19/17 05:30 RBC 3.49 Mil/uL (3.80-5.20) L 04/19/17 05:30 Hgb 9.4 g/dL (12.0-16.0) L 04/19/17 05:30 Hct 28.1 % (34.0-47.0) L 04/19/17 05:30 MCV 80.3 fl (81.0-99.0) L 04/19/17 05:30 MCH 27.0 pg (27.0-31.0) 04/19/17 05:30 MCHC 33.7 g/dL (33.0-37.0) 04/19/17 05:30 RDW 16.2 % (11.5-14.5) H 04/19/17 05:30 Plt Count 145 K/uL (130-400) 04/19/17 05:30 MPV 8.3 fl (7.2-11.7) 04/15/17 02:35 Neut % (Auto) 83.3 % (50.0-75.0) H 04/15/17 02:35 Lymph % (Auto) 9.9 % (20.0-40.0) L 04/15/17 02:35 [place] % (Auto) 5.5 % (0.0-10.0) 04/15/17 02:35 Eos % (Auto) 0.9 % (0.0-4.0) 04/15/17 02:35 Baso % (Auto) 0.4 % (0.0-2.0) 04/15/17 02:35 Neut # 6.0 K/uL (1.8-7.0) 04/15/17 02:35 Lymph # 0.7 K/uL (1.0-4.3) L 04/15/17 02:35 Dixon # 0.4 K/uL (0.0-0.8) 04/15/17 02:35 Eos # 0.1 K/uL (0.0-0.7) 04/15/17 02:35 Baso # 0.0 K/uL (0.0-0.2) 04/15/17 02:35 Neutrophils % (Manual) 82 % (42-75) H 04/15/17 02:35 Lymphocytes % (Manual) 10 % (20-50) L 04/15/17 02:35 Reactive Lymphs % 2 % (0-0) H 04/15/17 02:35 Monocytes % (Manual) 5 % (0-10) 04/15/17 02:35 Basophils % (Manual) 1 % (0-2) 04/15/17 02:35 Platelet Estimate Slightly decreased (NORMAL) L 04/15/17 02:35 Poikilocytosis (manual Slight 04/15/17 02:35 Anisocytosis (manual) Slight 04/15/17 02:35 Ovalocytes Slight 04/15/17 02:35 PT 11.8 Seconds (9.8-13.1) 04/15/17 02:35 INR 1.1 (0.9-1.2) 04/15/17 02:35 APTT 30.8 Seconds (25.6-37.1) 04/15/17 02:35 Sodium 139 mmol/l (132-148) 04/17/17 05:30 Potassium 4.2 MMOL/L (3.6-5.0) 04/17/17 05:30 Chloride 106 mmol/L (98-107) 04/17/17 05:30 Carbon Dioxide 27 mmol/L (22-30) 04/17/17 05:30 Anion Gap 10 (10-20) 04/17/17 05:30 BUN 17 mg/dl (7-17) 04/17/17 05:30 Creatinine 1.2 mg/dl (0.7-1.2) 04/17/17 05:30 Est GFR ( Amer) 54 04/17/17 05:30 Est GFR (Non-Af Amer) 44 04/17/17 05:30 POC Glucose (mg/dL) 90 mg/dL (65-110) 04/19/17 05:29 Random Glucose 124 mg/dL (65-105) H 04/17/17 05:30 Calcium 8.3 mg/dL (8.4-10.2) L 04/17/17 05:30 Total Bilirubin 1.1 mg/dl (0.2-1.3) 04/17/17 05:30 AST 16 U/L (14-36) 04/17/17 05:30 ALT 28 U/L (9-52) 04/17/17 05:30 Alkaline Phosphatase 57 U/L (38-126) 04/17/17 05:30 Total Protein 6.3 G/DL (6.3-8.2) 04/17/17 05:30 Albumin 3.2 g/dL (3.5-5.0) L 04/17/17 05:30 Globulin 3.1 gm/dL (2.2-3.9) 04/17/17 05:30 Albumin/Globulin Ratio 1.0 (1.0-2.1) 04/17/17 05:30 Blood Type B POSITIVE 04/15/17 02:35 Antibody Screen Negative 04/15/17 02:35 BBK History Checked Patient has bt 04/15/17 02:35 - Hospital Course Hospital Course: 71 YO F with PMH of chronic sacral decubitus ulcer, right fibular fracture (01/16), osteoporosis, prediabetes, HTN, asthma, hypercholesterolemia, diverticulitis s/p Erinn's procedure, HLD, CVA with right sided deficits, peripheral neuropathy, depression, anxiety admitted for displaced fracture of left distal radius s/p fall at home. Pt has baseline residual R sided weakness from CVA 1 year ago and RLE pain from recent fx. Reduction of the left distal radius fx was done in the ED and LUE was put in a cast and splint. Pt underwent PT/OT in the hospital. Pt not able to perform ADLs, will need support in a rehab facility. Discharge Exam - Head Exam Head Exam: ATRAUMATIC, NORMOCEPHALIC - Eye Exam Eye Exam: EOMI, Normal appearance - ENT Exam ENT Exam: Mucous Membranes Moist - Neck Exam Neck exam: Full Rom - Respiratory Exam Respiratory Exam: Clear to PA & Lateral, NORMAL BREATHING PATTERN. absent: Wheezes - Cardiovascular Exam Cardiovascular Exam: REGULAR RHYTHM, +S1, +S2 - GI/Abdominal Exam GI & Abdominal Exam: Normal Bowel Sounds, Soft. absent: Tenderness Additional comments: colostomy bag noted in RUQ, site in dry and intact. Stool noted in bag, no blood. - Extremities Exam Extremities exam: full ROM, tenderness (mild tenderness to palpation of RLE, Multipodus boots not on) Additional comments: LUE in cast and sling. Able to move fingers and shoulder in affected arm. - Back Exam Additional comments: Had a stage 3 decub ulcer - Neurological Exam Neurological exam: Alert, Oriented x3 - Psychiatric Exam Psychiatric exam: Normal Affect, Normal Mood - Skin Skin Exam: Dry, Intact, Warm Discharge Plan - Follow Up Plan Condition: IMPROVED Disposition: HOME/ ROUTINE Patient education suggested?: Yes Instructions: Leg Fracture (DC), Arm Fracture in Adults (DC), Pressure Ulcer ( DC), Fall Prevention (DC)
[2017-04-19] MEDS: Enoxaparin 40 mg Syringe SC SCH (08:54)
[2017-04-19] MEDS: buPROPion SR 150 MG TABLET PO SCH (08:55)
[2017-04-19] MEDS: Pantoprazole 40 mg EC Tab PO SCH (08:55)
--- NOTE | 2017-04-19 08:57 | CP.PCM.PN ---
Subjective - Date & Time of Evaluation Date of Evaluation: 04/19/17 Time of Evaluation: 08:54 - Subjective Subjective: Patient states wrist pain is controlled. Denies numbness/tingling. Review of Systems - Review of Systems All systems: reviewed and no additional remarkable complaints except - Constitutional Additional comments: no fever/chills - Cardiovascular Cardiovascular: UNREMARKABLE - Respiratory Respiratory: UNREMARKABLE - Gastrointestinal Gastrointestinal: UNREMARKABLE - Musculoskeletal Musculoskeletal: As Par HPI - Integumentary Integumentary: UNREMARKABLE - Neurological Neurological: As Per HPI Objective - Vital Signs/Intake and Output Vital Signs (last 24 hours): Temp Pulse Resp BP Pulse Ox 99.2 F 88 20 159/70 H 95 04/19/17 07:53 04/19/17 07:53 04/19/17 07:53 04/19/17 07:53 04/19/17 07:53 - Medications Medications: Current Medications Acetaminophen (Tylenol 325mg Tab) 650 mg PO Q6 PRN PRN Reason: Pain, Mild (1-3) Alendronate Sodium (Fosamax) 70 mg PO QWK [facility] Aspirin (Aspirin Chewable) 81 mg PO DAILY [facility] Last Admin: 04/18/17 08:35 Dose: 81 mg Atorvastatin Calcium (Lipitor) 40 mg PO HS [facility] Last Admin: 04/18/17 21:27 Dose: 40 mg Bacitracin (Bacitracin Oint) 1 applic TOP DAILY [facility] Last Admin: 04/18/17 08:59 Dose: 1 applic Bupropion HCl (Wellbutrin Sr 150 Mg) 150 mg PO DAILY [facility] Last Admin: 04/18/17 08:35 Dose: 150 mg Calcitonin [place] (Miacalcin) 200 intlu SHERRILL DAILY [facility] Last Admin: 04/18/17 08:52 Dose: 1 spr Docusate Sodium (Colace) 100 mg PO DAILY [facility] Duloxetine HCl (Cymbalta) 60 mg PO DAILY [facility] Last Admin: 04/18/17 08:33 Dose: 60 mg Enoxaparin Sodium (Lovenox) 40 mg SC DAILY [facility] PRN Reason: Protocol Last Admin: 04/18/17 08:32 Dose: 40 mg Ergocalciferol (Drisdol 50,000 Intl Units Cap) 1 cap PO QWK [facility] Ferrous Sulfate (Feosol) 325 mg PO DAILY [facility] Last Admin: 04/18/17 08:34 Dose: 325 mg Lisinopril (Zestril) 20 mg PO DAILY [facility] Last Admin: 04/18/17 08:33 Dose: 20 mg Montelukast Sodium (Singulair) 10 mg PO HS [facility] Last Admin: 04/18/17 21:27 Dose: 10 mg Morphine Sulfate (Morphine Extended Release Tab) 30 mg PO Q12 [facility] Last Admin: 04/18/17 21:28 Dose: 30 mg Morphine Sulfate (Morphine Sulfate) 10 mg PO Q4 PRN PRN Reason: Pain, severe (8-10) Last Admin: 04/16/17 06:27 Dose: 10 mg Nystatin (Nystop Topical Powder) 1 applic TOP DAILY [facility] Last Admin: 04/18/17 08:58 Dose: 1 applic Oxycodone/Acetaminophen (Percocet 5/325 Mg Tab) 1 tab PO Q4 PRN PRN Reason: Pain, moderate (4-7) Stop: 04/21/17 08:38 Last Admin: 04/19/17 04:49 Dose: 1 tab Pantoprazole Sodium (Protonix Ec Tab) 40 mg PO DAILY [facility] Last Admin: 04/18/17 08:33 Dose: 40 mg Sertraline HCl (Zoloft) 150 mg PO DAILY [facility] Last Admin: 04/18/17 08:34 Dose: 150 mg Zolpidem Tartrate (Ambien) 5 mg PO HS [facility] Last Admin: 04/18/17 22:38 Dose: 5 mg - Labs Labs: 04/19/17 05:30 04/17/17 05:30 PT 11.8 Seconds (9.8-13.1) 04/15/17 02:35 INR 1.1 (0.9-1.2) 04/15/17 02:35 APTT 30.8 Seconds (25.6-37.1) 04/15/17 02:35 - Constitutional Appears: Well, No Acute Distress - Extremities Exam Additional comments: still noted swelling to fingers, hand elevated sensation intact +cap refill < 2 sec - Neurological Exam Neurological Exam: Alert, Awake, Oriented x3 Neuro motor strength exam: Left Upper Extremity: 5 - Psychiatric Exam Psychiatric exam: Normal Affect, Normal Mood - Skin Skin Exam: Dry, Intact, Normal Color, Warm Assessment and Plan (1) Closed fracture of left distal radius Assessment & Plan: repeat imaging in [facility] tong splint reviewed with Dr. Maya, position of fracture still acceptable maintain splint at all times, keep dry and intact elevate to improve swelling to fingers f/u Dr. Maya as outpatient in approx 1 week for follow up xrays call for appointment again advised patient there is still risk of failure of reduction in future, so close follow up needed ortho stable for d/c d/w Dr. Maya, agrees with above Status: Acute (2) Displaced fracture of left ulna styloid process, initial encounter for closed fracture Status: Acute
[2017-04-19] MEDS: Morphine 30 mg SR Tab PO SCH (09:06)
[2017-04-19] MEDS: Calcitonin 200 Int Units/Inh Nasal Spray (3.7 ml) NAS SCH (12:15)
--- NOTE | 2017-04-19 14:06 | CP.PCM.PN ---
Subjective - Date & Time of Evaluation Date of Evaluation: 04/19/17 Time of Evaluation: 14:04 - Subjective Subjective: No acute overnight events. Pt seen and examined by bedside this AM. Pt is feeling well this, states that her pain is well controlled. Able to move her shoulders in L side and continues to have pain in RLE when ambulating. Denies chest pain, dyspnea, tachycardia, n/v/d/c and remains afebrile. Objective - Vital Signs/Intake and Output Vital Signs (last 24 hours): Temp Pulse Resp BP Pulse Ox 99.2 F 88 20 159/70 H 95 04/19/17 07:53 04/19/17 08:55 04/19/17 07:53 04/19/17 08:55 04/19/17 07:53 - Medications Medications: Current Medications Acetaminophen (Tylenol 325mg Tab) 650 mg PO Q6 PRN PRN Reason: Pain, Mild (1-3) Alendronate Sodium (Fosamax) 70 mg PO QWK [facility] Aspirin (Aspirin Chewable) 81 mg PO DAILY [facility] Last Admin: 04/19/17 08:53 Dose: 81 mg Atorvastatin Calcium (Lipitor) 40 mg PO HS [facility] Last Admin: 04/18/17 21:27 Dose: 40 mg Bacitracin (Bacitracin Oint) 1 applic TOP DAILY [facility] Last Admin: 04/18/17 08:59 Dose: 1 applic Bupropion HCl (Wellbutrin Sr 150 Mg) 150 mg PO DAILY [facility] Last Admin: 04/19/17 08:55 Dose: 150 mg Calcitonin [place] (Miacalcin) 200 intlu SHERRILL DAILY [facility] Last Admin: 04/19/17 12:15 Dose: 1 spr Docusate Sodium (Colace) 100 mg PO DAILY [facility] Last Admin: 04/19/17 08:53 Dose: 100 mg Duloxetine HCl (Cymbalta) 60 mg PO DAILY [facility] Last Admin: 04/19/17 08:54 Dose: 60 mg Enoxaparin Sodium (Lovenox) 40 mg SC DAILY [facility] PRN Reason: Protocol Last Admin: 04/19/17 08:54 Dose: 40 mg Ergocalciferol (Drisdol 50,000 Intl Units Cap) 1 cap PO QWK [facility] Ferrous Sulfate (Feosol) 325 mg PO DAILY [facility] Last Admin: 04/19/17 08:54 Dose: 325 mg Lisinopril (Zestril) 20 mg PO DAILY [facility] Last Admin: 04/19/17 08:55 Dose: 20 mg Montelukast Sodium (Singulair) 10 mg PO [facility] Last Admin: 04/18/17 21:27 Dose: 10 mg Morphine Sulfate (Morphine Extended Release Tab) 30 mg PO Q12 [facility] Last Admin: 04/19/17 09:06 Dose: 30 mg Nystatin (Nystop Topical Powder) 1 applic TOP DAILY [facility] Last Admin: 04/19/17 12:13 Dose: 1 applic Oxycodone/Acetaminophen (Percocet 5/325 Mg Tab) 1 tab PO Q4 PRN PRN Reason: Pain, moderate (4-7) Stop: 04/21/17 08:38 Last Admin: 04/19/17 04:49 Dose: 1 tab Pantoprazole Sodium (Protonix Ec Tab) 40 mg PO DAILY [facility] Last Admin: 04/19/17 08:55 Dose: 40 mg Sertraline HCl (Zoloft) 150 mg PO DAILY [facility] Last Admin: 04/19/17 08:56 Dose: 150 mg Zolpidem Tartrate (Ambien) 5 mg PO [facility] Last Admin: 04/18/17 22:38 Dose: 5 mg - Labs Labs: 04/19/17 05:30 04/17/17 05:30 PT 11.8 Seconds (9.8-13.1) 04/15/17 02:35 INR 1.1 (0.9-1.2) 04/15/17 02:35 APTT 30.8 Seconds (25.6-37.1) 04/15/17 02:35 - Constitutional Appears: Non-toxic, No Acute Distress, Other (LUE in cast and splint ) - Head Exam Head Exam: ATRAUMATIC, NORMOCEPHALIC - Eye Exam Eye Exam: EOMI - ENT Exam ENT Exam: Mucous Membranes Moist - Neck Exam Neck Exam: Full ROM - Respiratory Exam Respiratory Exam: Clear to Ausculation Bilateral, NORMAL BREATHING PATTERN. absent: Wheezes - Cardiovascular Exam Cardiovascular Exam: REGULAR RHYTHM, +S1, +S2 - GI/Abdominal Exam GI & Abdominal Exam: Soft, Normal Bowel Sounds. absent: Tenderness Additional comments: Has colostomy bag in RUQ. Ostomy site is clean and intact. Stool noted, no blood. Old midline surgical scar, well healed. - Extremities Exam Extremities Exam: Full ROM, Tenderness (to palpation of the R distal leg ). absent: Pedal Edema Additional comments: LUE in cast and splint. Moving all fingers. Sensory intact in fingers, mildly swollen, capillary refill < 2 sec - Back Exam Additional comments: Sacral decub ulcer noted - Neurological Exam Neurological Exam: Alert, Awake, Oriented x3 - Psychiatric Exam Psychiatric exam: Normal Affect, Normal Mood - Skin Skin Exam: Dry, Intact, Normal Color, Warm Assessment and Plan - Assessment and Plan (Free Text) Assessment: Assessment/Plan: 71 YO F with PMH of chronic sacral decubitus ulcer, right fibular fracture (01/16), osteoporosis, DM II, HTN, asthma, hypercholesterolemia, diverticulitis s/ p Erinn's procedure, HLD, CVA with right sided deficits, peripheral neuropathy, depression, anxiety admitted for displaced fracture of left distal radius s/p fall at home. Pt needs assistance with ADLs, awaiting rehab placement. 1. Displaced fracture of distal radius (L) s/p fall -Acute, closed, stable -Initial left wrist Xray showed displaced fracture of distal radius; reduction done in ED; repeat left wrist xray: aligned left distal radius fracture -Head CT: no hemorrhage or edema, normal osseous structure, low attenuation in the left basal ganglia consistent with old lacunar infarct -Orthopedic consult appreciated- seen by VINCENZO Barton, for Dr. Maya: pre and post reduction imaging reviewed and acceptable; repeat xrays in splint; continue elevation at all times; non-weightbearing left upper extremity; keep splint dry and intact. Patient orthopedically stable for d/c/. F/u Dr. Maya as outpatient in approx 1 week for follow up xrays call for appointment. -Pain management, fall precautions, PT/OT 2. Right fibular fracture (01/16/17) -stable, closed -patient follows with podiatry clinic regularly (last visit 04/01/17) -01/16/17 Right ankle fracture: subtle linear oblique lucency through distal fibular shaft which may suggest indeterminate age fracture -04/01/17 Right lower extremity duplex: no evidence of DVT -Podiatry consult: xrays 04/15, fracture of right lateral malleolus/distal fibula at an intermediate stage of healing. Negative for acute fracture. No dislocation identified. continue multipodus boots per podiatry. 3. Sacral Decubitus Ulcer -stage 3, chronic, healing -sacral wound debridement 06/10/2016 -Wound care consult appreciated -turn and reposition Q2hrs 4. HTN -elevated bps- last bp 159/70 -will increase Lisinopril from 20mg to 40mg PO QD -continue to monitor 5. DM II -controlled, Hx of IDDM now diet controlled -labs 12/24/16: HbA1c 6.0; lipid panel: cholesterol 134, triglycerides 245, HDL 36 , VLDL 49 -continue Atorvastatin 40mg PO QHS 6. Mild Intermittent Asthma -controlled -continue home med: Montelukast sodium 10mg PO QHS 7. Anemia of chronic disease -chronic, stable, H/H 10.7/32.6, MCV 80.5 -labs 12/24/16: Ferritin 216; 06/16/16: iron 50 ug/dL, TIBC 167 ug/dL, % sat 30 -continue ferrous sulfate 325mg PO QD -hx of venofer (06/2016) in past 8. Thrombocytopenia, resolved -chronic -improved to 145 today 9. Depression -chronic, stable, pt follows regularly with Percy Pryor -Psychiatrist (last visit 01/05/17, medications adjusted) -continue Bupropion Hcl 150mg PO QD, Duloxetine HCl 60mg PO QD, Sertraline 150mg PO QD -Pastoral care consult 10. Osteoporosis -continue home meds: Vit D 50,000 unit PO weekly, Calcitonin 200 unit ACT solution-1 spray in each nostril BID, Alendronate 70mg PO weekly -follow up SPEP and urine electrophoresis 11. DVT prophylaxis -SCD's -Lovenox 40mg SC QD
--- NOTE | 2017-04-19 14:40 | CP.PCM.DIS ---
Provider - Provider Date of Admission: 04/15/17 08:59 Attending physician: Nichole Burton MD Consults: 04/15/17 03:46 Pastoral Care Referral Routine Comment: Physician Instructions: Reason For Exam: spiritual care Time Spent in preparation of Discharge (in minutes): 20 Hospital Course - Lab Results Lab Results: Most Recent Lab Values WBC 5.3 K/uL (4.8-10.8) 04/19/17 05:30 RBC 3.49 Mil/uL (3.80-5.20) L 04/19/17 05:30 Hgb 9.4 g/dL (12.0-16.0) L 04/19/17 05:30 Hct 28.1 % (34.0-47.0) L 04/19/17 05:30 MCV 80.3 fl (81.0-99.0) L 04/19/17 05:30 MCH 27.0 pg (27.0-31.0) 04/19/17 05:30 MCHC 33.7 g/dL (33.0-37.0) 04/19/17 05:30 RDW 16.2 % (11.5-14.5) H 04/19/17 05:30 Plt Count 145 K/uL (130-400) 04/19/17 05:30 MPV 8.3 fl (7.2-11.7) 04/15/17 02:35 Neut % (Auto) 83.3 % (50.0-75.0) H 04/15/17 02:35 Lymph % (Auto) 9.9 % (20.0-40.0) L 04/15/17 02:35 Page % (Auto) 5.5 % (0.0-10.0) 04/15/17 02:35 Eos % (Auto) 0.9 % (0.0-4.0) 04/15/17 02:35 Baso % (Auto) 0.4 % (0.0-2.0) 04/15/17 02:35 Neut # 6.0 K/uL (1.8-7.0) 04/15/17 02:35 Lymph # 0.7 K/uL (1.0-4.3) L 04/15/17 02:35 Page # 0.4 K/uL (0.0-0.8) 04/15/17 02:35 Eos # 0.1 K/uL (0.0-0.7) 04/15/17 02:35 Baso # 0.0 K/uL (0.0-0.2) 04/15/17 02:35 Neutrophils % (Manual) 82 % (42-75) H 04/15/17 02:35 Lymphocytes % (Manual) 10 % (20-50) L 04/15/17 02:35 Reactive Lymphs % 2 % (0-0) H 04/15/17 02:35 Monocytes % (Manual) 5 % (0-10) 04/15/17 02:35 Basophils % (Manual) 1 % (0-2) 04/15/17 02:35 Platelet Estimate Slightly decreased (NORMAL) L 04/15/17 02:35 Poikilocytosis (manual Slight 04/15/17 02:35 Anisocytosis (manual) Slight 04/15/17 02:35 Ovalocytes Slight 04/15/17 02:35 PT 11.8 Seconds (9.8-13.1) 04/15/17 02:35 INR 1.1 (0.9-1.2) 04/15/17 02:35 APTT 30.8 Seconds (25.6-37.1) 04/15/17 02:35 Sodium 139 mmol/l (132-148) 04/17/17 05:30 Potassium 4.2 MMOL/L (3.6-5.0) 04/17/17 05:30 Chloride 106 mmol/L (98-107) 04/17/17 05:30 Carbon Dioxide 27 mmol/L (22-30) 04/17/17 05:30 Anion Gap 10 (10-20) 04/17/17 05:30 BUN 17 mg/dl (7-17) 04/17/17 05:30 Creatinine 1.2 mg/dl (0.7-1.2) 04/17/17 05:30 Est GFR ( Amer) 54 04/17/17 05:30 Est GFR (Non-Af Amer) 44 04/17/17 05:30 POC Glucose (mg/dL) 164 mg/dL (65-110) H 04/19/17 10:49 Random Glucose 124 mg/dL (65-105) H 04/17/17 05:30 Calcium 8.3 mg/dL (8.4-10.2) L 04/17/17 05:30 Total Bilirubin 1.1 mg/dl (0.2-1.3) 04/17/17 05:30 AST 16 U/L (14-36) 04/17/17 05:30 ALT 28 U/L (9-52) 04/17/17 05:30 Alkaline Phosphatase 57 U/L (38-126) 04/17/17 05:30 Total Protein 6.3 G/DL (6.3-8.2) 04/17/17 05:30 Albumin 3.2 g/dL (3.5-5.0) L 04/17/17 05:30 Globulin 3.1 gm/dL (2.2-3.9) 04/17/17 05:30 Albumin/Globulin Ratio 1.0 (1.0-2.1) 04/17/17 05:30 Blood Type B POSITIVE 04/15/17 02:35 Antibody Screen Negative 04/15/17 02:35 BBK History Checked Patient has bt 04/15/17 02:35 - Hospital Course Hospital Course: 71 YO F with PMH of chronic sacral decubitus ulcer, right fibular fracture (01/16), osteoporosis, DM II, HTN, asthma, hypercholesterolemia, diverticulitis s/ p Erinn's procedure, HLD, CVA with right sided deficits, peripheral neuropathy, depression, anxiety admitted for displaced fracture of left distal radius s/p fall at home. Pt has baseline residual R sided weakness from CVA 1 year ago and RLE pain from recent fx. Reduction of the left distal radius fx was done in the ED and LUE was put in a cast and splint, post reduction image stable. Pt underwent PT/OT in the hospital. Pt d/c to [facility], follow up in clinic with Dr. Burton on 05/17/2017 at 9AM. Discharge Exam - Head Exam Head Exam: ATRAUMATIC, NORMOCEPHALIC - Eye Exam Eye Exam: EOMI, Normal appearance - ENT Exam ENT Exam: Mucous Membranes Moist - Neck Exam Neck exam: Full Rom - Respiratory Exam Respiratory Exam: Clear to PA & Lateral, NORMAL BREATHING PATTERN. absent: Wheezes - Cardiovascular Exam Cardiovascular Exam: REGULAR RHYTHM, +S1, +S2 - GI/Abdominal Exam GI & Abdominal Exam: Normal Bowel Sounds Additional comments: Colostomy bag in RUQ, area clean and dry. Stool noted no blood. Healed midline scar. - Extremities Exam Extremities exam: full ROM Additional comments: mild tenderness to palpation of the distal R leg - Back Exam Additional comments: Sacral decub ulcer - Neurological Exam Neurological exam: Alert, Oriented x3 - Psychiatric Exam Psychiatric exam: Normal Affect, Normal Mood - Skin Skin Exam: Dry, Intact, Normal Color, Warm Discharge Plan - Follow Up Plan Condition: IMPROVED Disposition: HOME/ ROUTINE Instructions: Leg Fracture (DC), Arm Fracture in Adults (DC), Pressure Ulcer ( DC), Fall Prevention (DC) Additional Instructions: Follow up in clinic with Dr. Burton on 05/17/2017 at 9AM.
[2017-04-19 16:03] VITALS: TEMP 98.9
[2017-04-19] MEDS: Bacitracin OINT 15GM TOP SCH (16:23)
[2017-04-19 17:29] VITALS: BP 175/69; PULSE 89; RESP 20
== END 2017-04-19 17:00 | DRG 562 ==
LOC: H.ER 00:32 → H.ERHOLD 02:24 → H.MEDSURG1 04:36 → OBSVTOIN 08:59 → H.MEDSURG1 04-18 18:01
PROVIDERS: ADMIT Family Medicine; ATTEND Family Medicine
PROC: 0PSJXZZ Reposition Left Radius, External Approach (ICD-10-PCS; principal; 2017-04-15)
DX: S52.502A Unspecified fracture of the lower end of left radius, initial encounter for closed fracture (principal); L89.153 Pressure ulcer of sacral region, stage 3; L03.115 Cellulitis of right lower limb; D69.6 Thrombocytopenia, unspecified; E11.42 Type 2 diabetes mellitus with diabetic polyneuropathy; L03.116 Cellulitis of left lower limb; W05.0XXA Fall from non-moving wheelchair, initial encounter; D63.8 Anemia in other chronic diseases classified elsewhere; S00.93XA Contusion of unspecified part of head, initial encounter; G89.29 Other chronic pain; M19.90 Unspecified osteoarthritis, unspecified site; S52.612A Displaced fracture of left ulna styloid process, initial encounter for closed fracture; M54.9 Dorsalgia, unspecified; S82.61XA Displaced fracture of lateral malleolus of right fibula, initial encounter for closed fracture; Z79.4 Long term (current) use of insulin; W19.XXXA Unspecified fall, initial encounter; Z79.899 Other long term (current) drug therapy; Z83.3 Family history of diabetes mellitus; Z86.73 Personal history of transient ischemic attack (TIA), and cerebral infarction without residual deficits; Z90.49 Acquired absence of other specified parts of digestive tract; Z90.710 Acquired absence of both cervix and uterus; Z93.3 Colostomy status; Z98.0 Intestinal bypass and anastomosis status; Y92.009 Unspecified place in unspecified non-institutional (private) residence as the place of occurrence of the external cause; E78.00 Pure hypercholesterolemia, unspecified; E78.5 Hyperlipidemia, unspecified; F32.9 Major depressive disorder, single episode, unspecified; F41.9 Anxiety disorder, unspecified; I10 Essential (primary) hypertension; J45.20 Mild intermittent asthma, uncomplicated; L89.619 Pressure ulcer of right heel, unspecified stage; M81.0 Age-related osteoporosis without current pathological fracture; L97.529 Non-pressure chronic ulcer of other part of left foot with unspecified severity

== ENCOUNTER 2017-04-27 16:20 | Inpatient (IN) | payer OTHER, MEDICAID ==
[2017-04-27 17:35] VITALS: BMI 34.4
--- NOTE | 2017-04-27 19:06 | CP.PCM.HP ---
History of Present Illness - History of Present Illness History of Present Illness: CC: TCU for physical therapy HPI: 71 y/o woman with PMH of NSTEMI 04/23/2016, chronic sacral decubitus ulcer , right fibular fracture (01/16/17), osteoporosis, DM II, HTN, asthma, hypercholesterolemia, diverticulitis s/p Erinn's procedure w/ colostomy, HLD , CVA with right sided deficits, peripheral neuropathy, depression, anxiety, displaced fracture of left distal radius s/p fall at home is admitted for physical therapy in TCU. Patient currently has no complaints. Left arm is in a cast. Patient has immobilizer boot for right ankle. Patient reports chronic sacral decubitus ulcer. Patient denies headaches, dizziness, chest pain, SOB, abdominal pain, nausea, vomiting, diarrhea, dysuria, or fever. [facility] PMHx: chronic sacral decubitus ulcer, right fibular fracture (01/16/17), right fibula fracture, osteoporosis, anemia, arthritis, IDDM now controlled with diet , HTN, asthma, hypercholesterolemia, diverticulitis s/p Erinn's procedure, HLD, CVA with right sided deficits, chronic back pain, peripheral neuropathy, depression, anxiety meds: see medlist SurgHx: spinal surgery, Hartmanns' procedure (rectosigmoid colon resection with colostomy), multiple colostomies, cholecystectomy, hysterectomy, sacral wound debridement 06/10/2016 FMHx: mother secondary to diabetes complications, father was estranged SocHx: Denies smoking, alcohol, or drugs, has 1 daughter ROS: 12 points assessed and negative unless otherwise reported in HPI Present on Admission - Present on Admission Any Indicators Present on Admission: Yes History of DVT/PE: No History of Uncontrolled Diabetes: No Urinary Catheter: No Decubitus Ulcer Present: Yes Decubitus Ulcer Location: sacral decubitus Decubitus Ulcer Stage: IV Review of Systems - Review of Systems All systems: reviewed and no additional remarkable complaints except - Constitutional Constitutional: absent: Fever, Headache - EENT Eyes: absent: Change in Vision - Cardiovascular Cardiovascular: absent: Chest Pain, Leg Edema, Lightheadedness, Palpitations - Respiratory Respiratory: absent: Dyspnea, Wheezing - Gastrointestinal Gastrointestinal: absent: Abdominal Pain, Diarrhea, Nausea, Vomiting - Genitourinary Genitourinary: absent: Dysuria - Musculoskeletal Musculoskeletal: As Per HPI - Integumentary Integumentary: As Per HPI - Neurological Neurological: absent: Dizziness, Headaches, Vertigo Past Patient History - Infectious Disease Hx of Infectious Diseases: None - Past Medical History & Family History Past Medical History?: Yes - Past Social History Smoking Status: Never Smoked - CARDIAC Hx Hypercholesterolemia: Yes Hx Hypertension: Yes - PULMONARY Hx Asthma: Yes Hx Chronic Obstructive Pulmonary Disease (COPD): No Hx Pneumonia: Yes - NEUROLOGICAL Hx Transient Ischemic Attacks (TIA): Yes - HEENT Other/Comment: GLASSES - NEARSIGHTEDNESS. - RENAL Hx Chronic Kidney Disease: No - ENDOCRINE/METABOLIC Hx Diabetes Mellitus Type 2: Yes - HEMATOLOGICAL/ONCOLOGICAL Hx AIDS: No Hx Anemia: Yes Hx Blood Transfusions: Yes Hx Human Immunodeficiency Virus (HIV): No - INTEGUMENTARY Hx Cellulitis: Yes (BLE) Other/Comment: Sacral decubiti, RIGHT HEEL (DTI) - MUSCULOSKELETAL/RHEUMATOLOGICAL Hx Falls: Yes (fx left wrist) - GASTROINTESTINAL Hx Colostomy: Yes Hx Diverticulitis: Yes (s/p Erinn procedure) - GENITOURINARY/GYNECOLOGICAL Hx Genitourinary Disorders: No Other/Comment: bladder fistula - PSYCHIATRIC Hx Anxiety: Yes Hx Substance Use: No - SURGICAL HISTORY Hx Cholecystectomy: Yes - ANESTHESIA Hx Anesthesia: Yes Hx Anesthesia Reactions: No Hx Malignant Hyperthermia: No Meds Allergies/Adverse Reactions: Allergies Allergy/AdvReac Type Severity Reaction Status Date / Time iodine Allergy RASH Verified 04/23/17 07:10 Sulfa (Sulfonamide Allergy RASH Verified 04/27/17 17:35 Antibiotics) Physical Exam - Constitutional Appears: Non-toxic, No Acute Distress - Head Exam Head Exam: ATRAUMATIC, NORMAL INSPECTION, NORMOCEPHALIC - Eye Exam Eye Exam: Normal appearance - ENT Exam ENT Exam: Mucous Membranes Moist - Neck Exam Neck exam: Positive for: Full Rom, Normal Inspection. Negative for: Tenderness - Respiratory Exam Respiratory Exam: Clear to Auscultation Bilateral, NORMAL BREATHING PATTERN. absent: Chest Wall Tenderness, Decreased Breath Sounds, Rales, Rhonchi, Wheezes , Respiratory Distress - Cardiovascular Exam Cardiovascular Exam: REGULAR RHYTHM - GI/Abdominal Exam GI & Abdominal Exam: Normal Bowel Sounds, Soft. absent: Distended, Tenderness Additional comments: well maintained and functioning left colostomy bag - Extremities Exam Extremities exam: Positive for: normal inspection. Negative for: calf tenderness, pedal edema, tenderness - Back Exam Back exam: rash noted (stage IV sacral decubitus ulcer) - Neurological Exam Neurological exam: Alert, Oriented x3 - Skin Skin Exam: Dry, Intact, Normal Color, Warm Results - Vital Signs Recent Vital Signs: Last Vital Signs Temp Pulse Resp 18 04/27/17 18:20 BP Pulse Ox 98 04/27/17 18:20 Assessment & Plan - Assessment and Plan (Free Text) Assessment: 71 y/o woman with PMH of NSTEMI 04/23/2016, chronic sacral decubitus ulcer, right fibular fracture (01/16/17), osteoporosis, DM II, HTN, asthma, hypercholesterolemia, diverticulitis s/p Erinn's procedure w/ colostomy, HLD , CVA with right sided deficits, peripheral neuropathy, depression, anxiety, displaced fracture of left distal radius s/p fall at home is admitted for physical therapy in TCU Plan: Left wrist fracture - left wrist in cast - B/L wrist xray 04/25/17: Left distracted intra-articular fracture of distal radius from 04/03/17 fall. Right wrist shows chronic degenerative diseases - Venous duplex study showed evidence phlebitis of the right basilic vein, no evidence of DVT - Continue tylenol and percocet as needed Right fibular fracture - has immobilizer boot - foot/ankle XR 04/15/2017: fracture of right malleolus/distal fibula at intermediate stage of healing, no acute fracture/dislocation. Diffuse osteopenia suggests osteoporosis - tylenol and percocet for pain prn HTN - BP mildly elevated 158/74 mm Hg - Lisinopril 40 mg PO daily REEMA - Cont to monitor NSTEMI - elevated troponin 04/23/2017 - Echo 04/23/2017: LVEF greater than 70%, LV diastolic function is abnormal. no regional wall motion abnormalities. RV normal size. RV systolic function normal. LA normal size. Trace to mild tricuspid regurgitation - asa 81 mg PO daily - atorvastatin 40 mg PO daily - start metoprolol succinate 25 mg PO daily Stage 4 sacral decubitus ulcer - Continue wound care management - Turn Q 2H Diabetes - moderate consistent carbohydrate diet - A1c 6.0 on 04/23/17 - insulin lispro correction scale - hypoglycemic protocol Anemia - H/H 9.3/28.2 - ast ferritin 421 in 06/2016 - protein electrophoresis in past showed decreased albumin suggestive of malnutrition - FeSO4 325 mg PO daily Prophylaxis - lovenox - protonix 40mg PO daily - turn q2h - wound care
[2017-04-27] MEDS ORDERED: Glucagon Recombinant 1 mg Inj IM PRN (19:30)
[2017-04-27] MEDS ORDERED: Dextrose 50% SYRINGE Inj (50 ml) IV PRN (19:30)
[2017-04-27] MEDS ORDERED: Morphine 15 mg SR Tab PO PRN (21:03)
[2017-04-27 21:21] VITALS: RESP 20
[2017-04-27] MEDS: Insulin Lispro (humaLOG) 100 Units/ml Inj SC SCH (21:23)
[2017-04-28] MEDS: Ciprofloxacin 200mg/100ml D5W 100 ML IVPB SCH ×2 (05:02→17:11)
[2017-04-28] MEDS: Insulin Lispro (humaLOG) 100 Units/ml Inj SC SCH ×4 (06:42→21:33)
[2017-04-28] MEDS: Oxycodone/Acetaminophen 5/325 mg Tab PO PRN ×3 (08:37→21:57)
[2017-04-28] MEDS: Enoxaparin 40 mg Syringe SC SCH (08:39)
[2017-04-28] MEDS: Metoprolol Succinate 25 mg XL Tab PO SCH (08:41)
[2017-04-28] MEDS: Pantoprazole 40 mg EC Tab PO SCH (08:43)
[2017-04-29] MEDS ORDERED: Oxycodone/Acetaminophen 5/325 mg Tab PO PRN (02:03)
[2017-04-29] MEDS: Oxycodone/Acetaminophen 5/325 mg Tab PO PRN (02:30)
[2017-04-29] MEDS: Ciprofloxacin 200mg/100ml D5W 100 ML IVPB SCH ×2 (05:13→16:48)
[2017-04-29] MEDS: Insulin Lispro (humaLOG) 100 Units/ml Inj SC SCH ×4 (06:38→21:28)
--- NOTE | 2017-04-29 07:50 | CP.PCM.PN ---
Subjective - Date & Time of Evaluation Date of Evaluation: 04/29/17 Time of Evaluation: 07:50 - Subjective Subjective: No acute overnight events. Pt states that she is working with PT/OT. She was able to stand and transfer from bed to chair. Tolerating diet. Denies chest pain , dyspnea, palpitations, n/v/d/c and remains afebrile. Objective - Vital Signs/Intake and Output Vital Signs (last 24 hours): Temp Pulse Resp BP Pulse Ox 97.5 F L 74 20 153/70 H 99 04/28/17 20:00 04/28/17 20:00 04/28/17 20:00 04/28/17 20:00 04/28/17 20:00 - Medications Medications: Current Medications Acetaminophen (Tylenol 325mg Tab) 650 mg PO Q4 PRN PRN Reason: Fever of 100.6 F and Above Acetaminophen (Tylenol 325mg Tab) 650 mg PO Q4 PRN PRN Reason: Pain, Mild (1-3) Aspirin (Aspirin Chewable) 81 mg PO DAILY [facility] Last Admin: 04/28/17 08:39 Dose: 81 mg Atorvastatin Calcium (Lipitor) 40 mg PO HS [facility] Last Admin: 04/28/17 21:32 Dose: 40 mg Dextrose (Dextrose 50% Inj) 0 ml IV STAT PRN; Protocol PRN Reason: Hypoglycemia Protocol Dextrose (Glutose 15) 0 gm PO ONCE PRN; Protocol PRN Reason: Hypoglycemia Protocol Enoxaparin Sodium (Lovenox) 40 mg SC DAILY [facility] PRN Reason: Protocol Last Admin: 04/28/17 08:39 Dose: 40 mg Ferrous Sulfate (Feosol) 325 mg PO DAILY [facility] Last Admin: 04/28/17 08:39 Dose: 325 mg Glucagon (Glucagen Diagnostic Kit) 0 mg IM STAT PRN; Protocol PRN Reason: Hypoglycemia Protocol Ciprofloxacin (Cipro 200mg/100ml D5w) 100 mls @ 100 mls/hr IVPB Q12@0500,1700 [facility] Last Admin: 04/29/17 05:13 Dose: 100 mls/hr Vancomycin HCl 1 gm/ Sodium (Chloride) 250 mls @ 166.667 mls/hr IVPB DAILY@ 1700 [facility] PRN Reason: Protocol Last Admin: 04/28/17 18:38 Dose: 166.667 mls/hr Insulin Human Lispro (Humalog) 0 units SC ACHS [facility] PRN Reason: Protocol Last Admin: 04/29/17 06:38 Dose: Not Given Lisinopril (Zestril) 40 mg PO DAILY [facility] Last Admin: 04/28/17 08:42 Dose: 40 mg Metoprolol Succinate (Toprol Xl) 25 mg PO DAILY [facility] Last Admin: 04/28/17 08:41 Dose: 25 mg Montelukast Sodium (Singulair) 10 mg PO [facility] Last Admin: 04/28/17 21:32 Dose: 10 mg Morphine Sulfate (Morphine Extended Release Tab) 5 mg PO Q6 PRN PRN Reason: Pain, moderate (4-7) Oxycodone/Acetaminophen (Percocet 5/325 Mg Tab) 1 tab PO Q4 PRN PRN Reason: Pain, moderate (4-7) Stop: 05/02/17 02:04 Pantoprazole Sodium (Protonix Ec Tab) 40 mg PO DAILY [facility] Last Admin: 04/28/17 08:43 Dose: 40 mg Zolpidem Tartrate (Ambien) 5 mg PO [facility] Last Admin: 04/28/17 21:32 Dose: 5 mg - Constitutional Appears: No Acute Distress - Head Exam Head Exam: ATRAUMATIC, NORMAL INSPECTION - Eye Exam Eye Exam: EOMI, Normal appearance - ENT Exam ENT Exam: Mucous Membranes Moist - Neck Exam Neck Exam: Full ROM - Respiratory Exam Respiratory Exam: Clear to Ausculation Bilateral, NORMAL BREATHING PATTERN - Cardiovascular Exam Cardiovascular Exam: REGULAR RHYTHM, +S1, +S2 - GI/Abdominal Exam GI & Abdominal Exam: Soft, Normal Bowel Sounds. absent: Tenderness Additional comments: Has colostomy LUQ, stool brown in color no blood. Vertical midline well healed scar. - Extremities Exam Extremities Exam: Full ROM. absent: Pedal Edema, Tenderness Additional comments: Has PICC line on R arm - Back Exam Back Exam: NORMAL INSPECTION - Neurological Exam Neurological Exam: Alert, Awake, Oriented x3 - Psychiatric Exam Psychiatric exam: Normal Affect, Normal Mood - Skin Skin Exam: Dry, Intact, Normal Color, Warm Assessment and Plan - Assessment and Plan (Free Text) Assessment: Assessment/Plan: 71 y/o woman with PMH of NSTEMI 04/23/2016, chronic sacral decubitus ulcer, right fibular fracture (01/16/17), osteoporosis, DM II, HTN, asthma, hypercholesterolemia, diverticulitis s/p Erinn's procedure w/ colostomy, HLD , CVA with right sided deficits, peripheral neuropathy, depression, anxiety, displaced fracture of left distal radius is admitted to TCU from [facility] clinic for PT/OT. 1) Left wrist fracture - left wrist in cast - B/L wrist xray 04/25/17: Left distracted intra-articular fracture of distal radius from 04/03/17 fall. Right wrist shows chronic degenerative diseases - Venous duplex study showed evidence phlebitis of the right basilic vein, no evidence of DVT - ortho consulted, pending recs - Continue tylenol and started morphine ER BID 2) Right fibular fracture - has immobilizer boot - foot/ankle XR 04/15/2017: fracture of right malleolus/distal fibula at intermediate stage of healing, no acute fracture/dislocation. Diffuse osteopenia suggests osteoporosis - podiatry consulted, pending recs - tylenol and morphine for pain 3) HTN - BP mildly elevated - Lisinopril 40 mg PO daily [facility] - Cont to monitor 4) NSTEMI - elevated troponin 04/23/2017 - Echo 04/23/2017: LVEF greater than 70%, LV diastolic function is abnormal. no regional wall motion abnormalities. RV normal size. RV systolic function normal. LA normal size. Trace to mild tricuspid regurgitation - asa 81 mg PO daily - atorvastatin 40 mg PO daily - metoprolol succinate 25 mg PO daily 5) Elevated Procalcitonin - elevated 63.23 on 04/24/17 - unknown source of infection, pt afebrile - ID consulted - continue vanc and cipro x 7 days, / - vancomycin throgh 6) Stage 4 sacral decubitus ulcer - chronic, stable - Continue wound care management - Turn Q2H 7) Diabetes - stable - A1c 6.0 on 04/23/17 - insulin lispro correction scale - hypoglycemic protocol 8) Anemia - H/H 9.3/28.2 04/27/16 - ferritin 421 in 06/2016 - protein electrophoresis in past showed decreased albumin suggestive of malnutrition - FeSO4 325 mg PO daily 9) Depression, Anxiety - recent hospitalization in [facility] for AMS, serotonin syndrome - psych consulted in [facility], psych meds held - psychiatry consulted, hold psych meds. Follow up official recs 10) Prophylaxis - lovenox - protonix 40mg PO daily - turn q2h - wound care
--- NOTE | 2017-04-29 09:16 | CP.PCM.CON ---
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 Patient was seen by psychiatrist Dr. Gaxiola on 04/27/17 at [facility] [place] after she presented w/ AMS, rigidity, tremors, and hyperthermia, fever of 107F; due to concerns that the patient may have serotonin symptoms, it was recommended that the antidepressants be stopped at that time. Outside Repairer Special explained this concern to the patient. Outside Repairer Special explained that we will continue to hold antidepressants due to the risk of serotonin syndrome. Patient reports that she continues to have intermittent feelings of depression in the context of her many medical problems. We discussed the importance of psychotherapy. She denies AH/VH/ paranoia/delusions/SI/HI. PPHx: H/o of psychiatric tx w/ Wellbutrin, Zoloft and Duloxetine. No h/o suicide attempts or inpatient psychiatric admission. PMHx: hypertension, hypercholesterolemia, multiple fractures, DM, TIA, depression, and anxiety FamHx: aunt-depression; denies substance use SocHx: No drugs, tobacco or ETOH. +1 daughter in [place]. 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 lived alone with 3 cats, but now in a prison. PSurgHx: Colostomy, L/S fusion L1-S1 Allergies: iodine, sulfa-rash MSE: A + O x 3, calm, cooperative, good eye contact, speech normal. linear/ coherent, no delusions, no hallucinations, mood "depressed", affect- broad/ full range, no suicidal ideation/plan/intent, no HI, I/J fair Impression: 70yo F with PMHx Asthma, Depression, Diabetes (no meds), Diverticulitis (colostomy x10yr), HTN, Hypercholesterolemia admitted to TCU, recently had the antidepressants stopped due to concerns of possible serotonin syndrome. -Would continue to hold all antidepressants at this time due to risk of serotonin syndrome -Would recommend supportive psychotherapy -No acute inpatient psychiatric admission indicated at this time -Patient has capacity to make medical decisions at this time Past Patient History - Infectious Disease Hx of Infectious Diseases: None - Past Medical History & Family History Past Medical History?: Yes - Past Social History Smoking Status: Never Smoked - CARDIAC Hx Hypercholesterolemia: Yes Hx Hypertension: Yes - PULMONARY Hx Asthma: Yes Hx Chronic Obstructive Pulmonary Disease (COPD): No Hx Pneumonia: Yes - NEUROLOGICAL Hx Transient Ischemic Attacks (TIA): Yes - HEENT Other/Comment: GLASSES - NEARSIGHTEDNESS. - RENAL Hx Chronic Kidney Disease: No - ENDOCRINE/METABOLIC Hx Diabetes Mellitus Type 2: Yes - HEMATOLOGICAL/ONCOLOGICAL Hx AIDS: No Hx Anemia: Yes Hx Blood Transfusions: Yes Hx Human Immunodeficiency Virus (HIV): No - INTEGUMENTARY Hx Cellulitis: Yes (BLE) Other/Comment: Sacral decubiti, RIGHT HEEL (DTI) - MUSCULOSKELETAL/RHEUMATOLOGICAL Hx Falls: Yes (fx left wrist) - GASTROINTESTINAL Hx Colostomy: Yes Hx Diverticulitis: Yes (s/p Erinn procedure) - GENITOURINARY/GYNECOLOGICAL Hx Genitourinary Disorders: No Other/Comment: bladder fistula - PSYCHIATRIC Hx Anxiety: Yes Hx Substance Use: No - SURGICAL HISTORY Hx Cholecystectomy: Yes - ANESTHESIA Hx Anesthesia: Yes Hx Anesthesia Reactions: No Hx Malignant Hyperthermia: No Meds Allergies/Adverse Reactions: Allergies Allergy/AdvReac Type Severity Reaction Status Date / Time iodine Allergy RASH Verified 04/23/17 07:10 Sulfa (Sulfonamide Allergy RASH Verified 04/27/17 17:35 Antibiotics) - Medications Medications: Current Medications Acetaminophen (Tylenol 325mg Tab) 650 mg PO Q4 PRN PRN Reason: Fever of 100.6 F and Above Acetaminophen (Tylenol 325mg Tab) 650 mg PO Q4 PRN PRN Reason: Pain, Mild (1-3) Aspirin (Aspirin Chewable) 81 mg PO DAILY [facility] Last Admin: 04/28/17 08:39 Dose: 81 mg Atorvastatin Calcium (Lipitor) 40 mg PO HS [facility] Last Admin: 04/28/17 21:32 Dose: 40 mg Dextrose (Dextrose 50% Inj) 0 ml IV STAT PRN; Protocol PRN Reason: Hypoglycemia Protocol Dextrose (Glutose 15) 0 gm PO ONCE PRN; Protocol PRN Reason: Hypoglycemia Protocol Enoxaparin Sodium (Lovenox) 40 mg SC DAILY [facility] PRN Reason: Protocol Last Admin: 04/28/17 08:39 Dose: 40 mg Ferrous Sulfate (Feosol) 325 mg PO DAILY [facility] Last Admin: 04/28/17 08:39 Dose: 325 mg Glucagon (Glucagen Diagnostic Kit) 0 mg IM STAT PRN; Protocol PRN Reason: Hypoglycemia Protocol Ciprofloxacin (Cipro 200mg/100ml D5w) 100 mls @ 100 mls/hr IVPB Q12@0500,1700 [facility] Last Admin: 04/29/17 05:13 Dose: 100 mls/hr Vancomycin HCl 1 gm/ Sodium (Chloride) 250 mls @ 166.667 mls/hr IVPB DAILY@ 1700 [facility] PRN Reason: Protocol Last Admin: 04/28/17 18:38 Dose: 166.667 mls/hr Insulin Human Lispro (Humalog) 0 units SC ACHS [facility] PRN Reason: Protocol Last Admin: 04/29/17 06:38 Dose: Not Given Lisinopril (Zestril) 40 mg PO DAILY [facility] Last Admin: 04/28/17 08:42 Dose: 40 mg Metoprolol Succinate (Toprol Xl) 25 mg PO DAILY [facility] Last Admin: 04/28/17 08:41 Dose: 25 mg Montelukast Sodium (Singulair) 10 mg PO HS [facility] Last Admin: 04/28/17 21:32 Dose: 10 mg Morphine Sulfate (Morphine Extended Release Tab) 5 mg PO Q6 PRN PRN Reason: Pain, moderate (4-7) Oxycodone/Acetaminophen (Percocet 5/325 Mg Tab) 1 tab PO Q4 PRN PRN Reason: Pain, moderate (4-7) Stop: 05/02/17 02:04 Pantoprazole Sodium (Protonix Ec Tab) 40 mg PO DAILY [facility] Last Admin: 04/28/17 08:43 Dose: 40 mg Zolpidem Tartrate (Ambien) 5 mg PO [facility] Last Admin: 04/28/17 21:32 Dose: 5 mg Results - Vital Signs Recent Vital Signs: Last Vital Signs Temp 97.5 F L 04/28/17 20:00 Pulse 74 04/28/17 20:00 Resp 20 04/28/17 20:00 BP 153/70 H 04/28/17 20:00 Pulse Ox 99 04/28/17 20:00 - Labs Labs: Laboratory Results - last 24 hr 04/29/17 05:15 POC Glucose (mg/dL) 130 H
[2017-04-29] MEDS: Enoxaparin 40 mg Syringe SC SCH (09:37)
[2017-04-29] MEDS: Pantoprazole 40 mg EC Tab PO SCH (09:38)
[2017-04-29] MEDS: Metoprolol Succinate 25 mg XL Tab PO SCH (09:39)
--- NOTE | 2017-04-29 13:15 | CP.PCM.CON ---
History of Present Illness - History of Present Illness History of Present Illness: 71 year old female with mutliple medical issues, status post radius fracture and history of right fibular and right malloelus, status POST NSTEMI OSTEOPOROSIS Review of Systems - Musculoskeletal Musculoskeletal: Abnormal Gait, Muscle Weakness Past Patient History - Infectious Disease Hx of Infectious Diseases: None - Past Medical History & Family History Past Medical History?: Yes - Past Social History Smoking Status: Never Smoked - CARDIAC Hx Hypercholesterolemia: Yes Hx Hypertension: Yes - PULMONARY Hx Asthma: Yes Hx Chronic Obstructive Pulmonary Disease (COPD): No Hx Pneumonia: Yes - NEUROLOGICAL Hx Transient Ischemic Attacks (TIA): Yes - HEENT Other/Comment: GLASSES - NEARSIGHTEDNESS. - RENAL Hx Chronic Kidney Disease: No - ENDOCRINE/METABOLIC Hx Diabetes Mellitus Type 2: Yes - HEMATOLOGICAL/ONCOLOGICAL Hx AIDS: No Hx Anemia: Yes Hx Blood Transfusions: Yes Hx Human Immunodeficiency Virus (HIV): No - INTEGUMENTARY Hx Cellulitis: Yes (BLE) Other/Comment: Sacral decubiti, RIGHT HEEL (DTI) - MUSCULOSKELETAL/RHEUMATOLOGICAL Hx Falls: Yes (fx left wrist) - GASTROINTESTINAL Hx Colostomy: Yes Hx Diverticulitis: Yes (s/p Erinn procedure) - GENITOURINARY/GYNECOLOGICAL Hx Genitourinary Disorders: No Other/Comment: bladder fistula - PSYCHIATRIC Hx Anxiety: Yes Hx Substance Use: No - SURGICAL HISTORY Hx Cholecystectomy: Yes - ANESTHESIA Hx Anesthesia: Yes Hx Anesthesia Reactions: No Hx Malignant Hyperthermia: No Meds Allergies/Adverse Reactions: Allergies Allergy/AdvReac Type Severity Reaction Status Date / Time iodine Allergy RASH Verified 04/23/17 07:10 Sulfa (Sulfonamide Allergy RASH Verified 04/27/17 17:35 Antibiotics) - Medications Medications: Current Medications Acetaminophen (Tylenol 325mg Tab) 650 mg PO Q4 PRN PRN Reason: Fever of 100.6 F and Above Acetaminophen (Tylenol 325mg Tab) 650 mg PO Q4 PRN PRN Reason: Pain, Mild (1-3) Aspirin (Aspirin Chewable) 81 mg PO DAILY [facility] Last Admin: 04/29/17 09:38 Dose: 81 mg Atorvastatin Calcium (Lipitor) 40 mg PO HS [facility] Last Admin: 04/28/17 21:32 Dose: 40 mg Dextrose (Dextrose 50% Inj) 0 ml IV STAT PRN; Protocol PRN Reason: Hypoglycemia Protocol Dextrose (Glutose 15) 0 gm PO ONCE PRN; Protocol PRN Reason: Hypoglycemia Protocol Enoxaparin Sodium (Lovenox) 40 mg SC DAILY [facility] PRN Reason: Protocol Last Admin: 04/29/17 09:37 Dose: 40 mg Ferrous Sulfate (Feosol) 325 mg PO DAILY [facility] Last Admin: 04/29/17 09:39 Dose: 325 mg Glucagon (Glucagen Diagnostic Kit) 0 mg IM STAT PRN; Protocol PRN Reason: Hypoglycemia Protocol Ciprofloxacin (Cipro 200mg/100ml D5w) 100 mls @ 100 mls/hr IVPB Q12@0500,1700 [facility] Last Admin: 04/29/17 05:13 Dose: 100 mls/hr Vancomycin HCl 1 gm/ Sodium (Chloride) 250 mls @ 166.667 mls/hr IVPB DAILY@ 1700 [facility] PRN Reason: Protocol Last Admin: 04/28/17 18:38 Dose: 166.667 mls/hr Insulin Human Lispro (Humalog) 0 units SC ACHS [facility] PRN Reason: Protocol Last Admin: 04/29/17 12:26 Dose: Not Given Lisinopril (Zestril) 40 mg PO DAILY [facility] Last Admin: 04/29/17 09:38 Dose: 40 mg Metoprolol Succinate (Toprol Xl) 25 mg PO DAILY [facility] Last Admin: 04/29/17 09:39 Dose: 25 mg Montelukast Sodium (Singulair) 10 mg PO [facility] Last Admin: 04/28/17 21:32 Dose: 10 mg Morphine Sulfate (Morphine Extended Release Tab) 30 mg PO Q12 [facility] Pantoprazole Sodium (Protonix Ec Tab) 40 mg PO DAILY [facility] Last Admin: 04/29/17 09:38 Dose: 40 mg Zolpidem Tartrate (Ambien) 5 mg PO [facility] Last Admin: 04/28/17 21:32 Dose: 5 mg Physical Exam - Head Exam Head Exam: ATRAUMATIC, NORMAL INSPECTION, NORMOCEPHALIC - Eye Exam Eye Exam: EOMI, Normal appearance, PERRL Pupil Exam: NORMAL ACCOMODATION - ENT Exam ENT Exam: Mucous Membranes Moist, Normal Exam - Neck Exam Neck exam: Positive for: Normal Inspection - Respiratory Exam Respiratory Exam: NORMAL BREATHING PATTERN - Cardiovascular Exam Cardiovascular Exam: REGULAR RHYTHM - GI/Abdominal Exam GI & Abdominal Exam: Normal Bowel Sounds - Rectal Exam Rectal Exam: NORMAL INSPECTION - Exam External exam: NORMAL EXTERNAL EXAM - Extremities Exam Extremities exam: Positive for: normal inspection - Back Exam Back exam: NORMAL INSPECTION - Neurological Exam Neurological exam: CN II-XII Intact Additional comments: RIGHT LEG HEALING AND LEFT ARM IN CAST - Psychiatric Exam Psychiatric exam: Normal Affect, Normal Mood - Skin Skin Exam: Dry, Intact Results - Vital Signs Recent Vital Signs: Last Vital Signs Temp 98.2 F 04/29/17 09:17 Pulse 73 04/29/17 09:39 Resp 20 04/29/17 09:17 BP 154/80 H 04/29/17 09:39 Pulse Ox 98 04/29/17 09:17 - Labs Labs: Laboratory Results - last 24 hr 04/29/17 05:15 POC Glucose (mg/dL) 130 H Assessment & Plan (1) Abdominal pain Status: Acute (2) Advance care planning Status: Acute (3) Altered mental status Status: Acute (4) CVA (cerebral vascular accident) Status: Acute (5) Calf pain Status: Acute (6) Closed fracture of left distal radius Assessment and Plan: PLAN FOR PHYSICAL OCCUPATIONAL RANGEOF MOTION STRENBTHENING TRANSFERS GAIT TRAINING ORTH FOLLOW REGARDING WEIGHT BEARING CLARIFICATION . pATINET FOR for tcu Status: Acute (7) DVT prophylaxis Status: Acute (8) Displaced fracture of left ulna styloid process, initial encounter for closed fracture Status: Acute
--- NOTE | 2017-04-29 13:26 | CP.PCM.PN ---
Subjective - Date & Time of Evaluation Date of Evaluation: 04/29/17 Time of Evaluation: 12:00 - Subjective Subjective: NO ACUTE COMPLAINTS EXCEPT MILD LEFT ARM DISCOMFORT Objective - Vital Signs/Intake and Output Vital Signs (last 24 hours): Temp Pulse Resp BP Pulse Ox 98.2 F 73 20 154/80 H 98 04/29/17 09:17 04/29/17 09:39 04/29/17 09:17 04/29/17 09:39 04/29/17 09:17 - Medications Medications: Current Medications Acetaminophen (Tylenol 325mg Tab) 650 mg PO Q4 PRN PRN Reason: Fever of 100.6 F and Above Acetaminophen (Tylenol 325mg Tab) 650 mg PO Q4 PRN PRN Reason: Pain, Mild (1-3) Aspirin (Aspirin Chewable) 81 mg PO DAILY [facility] Last Admin: 04/29/17 09:38 Dose: 81 mg Atorvastatin Calcium (Lipitor) 40 mg PO HS [facility] Last Admin: 04/28/17 21:32 Dose: 40 mg Dextrose (Dextrose 50% Inj) 0 ml IV STAT PRN; Protocol PRN Reason: Hypoglycemia Protocol Dextrose (Glutose 15) 0 gm PO ONCE PRN; Protocol PRN Reason: Hypoglycemia Protocol Enoxaparin Sodium (Lovenox) 40 mg SC DAILY [facility] PRN Reason: Protocol Last Admin: 04/29/17 09:37 Dose: 40 mg Ferrous Sulfate (Feosol) 325 mg PO DAILY [facility] Last Admin: 04/29/17 09:39 Dose: 325 mg Glucagon (Glucagen Diagnostic Kit) 0 mg IM STAT PRN; Protocol PRN Reason: Hypoglycemia Protocol Ciprofloxacin (Cipro 200mg/100ml D5w) 100 mls @ 100 mls/hr IVPB Q12@0500,1700 [facility] Last Admin: 04/29/17 05:13 Dose: 100 mls/hr Vancomycin HCl 1 gm/ Sodium (Chloride) 250 mls @ 166.667 mls/hr IVPB DAILY@ 1700 [facility] PRN Reason: Protocol Last Admin: 04/28/17 18:38 Dose: 166.667 mls/hr Insulin Human Lispro (Humalog) 0 units SC ACHS [facility] PRN Reason: Protocol Last Admin: 04/29/17 12:26 Dose: Not Given Lisinopril (Zestril) 40 mg PO DAILY [facility] Last Admin: 04/29/17 09:38 Dose: 40 mg Metoprolol Succinate (Toprol Xl) 25 mg PO DAILY [facility] Last Admin: 04/29/17 09:39 Dose: 25 mg Montelukast Sodium (Singulair) 10 mg PO [facility] Last Admin: 04/28/17 21:32 Dose: 10 mg Morphine Sulfate (Morphine Extended Release Tab) 30 mg PO Q12 [facility] Pantoprazole Sodium (Protonix Ec Tab) 40 mg PO DAILY [facility] Last Admin: 04/29/17 09:38 Dose: 40 mg Zolpidem Tartrate (Ambien) 5 mg PO [facility] Last Admin: 04/28/17 21:32 Dose: 5 mg - Head Exam Head Exam: ATRAUMATIC, NORMAL INSPECTION, NORMOCEPHALIC - Eye Exam Eye Exam: EOMI, Normal appearance, PERRL Pupil Exam: NORMAL ACCOMODATION - ENT Exam ENT Exam: Mucous Membranes Moist, Normal Exam - Neck Exam Neck Exam: Normal Inspection - Respiratory Exam Respiratory Exam: NORMAL BREATHING PATTERN - Cardiovascular Exam Cardiovascular Exam: REGULAR RHYTHM - GI/Abdominal Exam GI & Abdominal Exam: Soft, Normal Bowel Sounds - Rectal Exam Rectal Exam: NORMAL INSPECTION - Exam External exam: NORMAL EXTERNAL EXAM - Extremities Exam Extremities Exam: Full ROM, Normal Capillary Refill, Normal Inspection - Back Exam Back Exam: NORMAL INSPECTION - Neurological Exam Neurological Exam: Alert, Awake Neuro motor strength exam: Left Upper Extremity: 2/1 (LEFT ARM IN CAST), Right Upper Extremity: 3, Left Lower Extremity: 3, Right Lower Extremity: 3 - Psychiatric Exam Psychiatric exam: Normal Affect, Normal Mood - Skin Skin Exam: Dry, Intact Assessment and Plan (1) Abdominal pain Status: Acute (2) Advance care planning Status: Acute (3) Altered mental status Status: Acute (4) CVA (cerebral vascular accident) Status: Acute (5) Calf pain Status: Acute (6) Closed fracture of left distal radius Assessment & Plan: PLAN TO CONTIUE WITH PHYSICAL AND OCCUPATIONAL THERAPY. DISCUSSED WITH BirgitNET WITH THERAPIST. ORTHO PENDING Status: Acute (7) DVT prophylaxis Status: Acute (8) Displaced fracture of left ulna styloid process, initial encounter for closed fracture Status: Acute
--- NOTE | 2017-04-29 14:12 | CP.PCM.PN ---
Subjective - Date & Time of Evaluation Date of Evaluation: 04/29/17 Time of Evaluation: 13:00 - Subjective Subjective: orthopedic follow up Dr. Maya Patient complaining of burning and tingling in all her fingers. She says the pain is still bad in her wrist. Objective - Vital Signs/Intake and Output Vital Signs (last 24 hours): Temp Pulse Resp BP Pulse Ox 98.2 F 73 20 154/80 H 98 04/29/17 09:17 04/29/17 09:39 04/29/17 09:17 04/29/17 09:39 04/29/17 09:17 - Medications Medications: Current Medications Acetaminophen (Tylenol 325mg Tab) 650 mg PO Q4 PRN PRN Reason: Fever of 100.6 F and Above Acetaminophen (Tylenol 325mg Tab) 650 mg PO Q4 PRN PRN Reason: Pain, Mild (1-3) Aspirin (Aspirin Chewable) [address] [facility] Last Admin: 04/29/17 09:38 Dose: 81 mg Atorvastatin Calcium (Lipitor) [address] [facility] Last Admin: 04/28/17 21:32 Dose: 40 mg Dextrose (Dextrose 50% Inj) 0 ml IV STAT PRN; Protocol PRN Reason: Hypoglycemia Protocol Dextrose (Glutose 15) 0 gm PO ONCE PRN; Protocol PRN Reason: Hypoglycemia Protocol Enoxaparin Sodium (Lovenox) [address] [facility] PRN Reason: Protocol Last Admin: 04/29/17 09:37 Dose: 40 mg Ferrous Sulfate (Feosol) [address] [facility] Last Admin: 04/29/17 09:39 Dose: 325 mg Glucagon (Glucagen Diagnostic Kit) 0 mg IM STAT PRN; Protocol PRN Reason: Hypoglycemia Protocol Ciprofloxacin (Cipro 200mg/100ml D5w) 100 mls @ 100 mls/hr IVPB Q12@0500,1700 [facility] Last Admin: 04/29/17 05:13 Dose: 100 mls/hr Vancomycin HCl 1 gm/ Sodium (Chloride) 250 mls @ 166.667 mls/hr IVPB DAILY@ 1700 [facility] PRN Reason: Protocol Last Admin: 04/28/17 18:38 Dose: 166.667 mls/hr Insulin Human Lispro (Humalog) [address] [facility] PRN Reason: Protocol Last Admin: 01/12/18 12:26 Dose: Not Given Lisinopril (Zestril) [address] [facility] Last Admin: 04/29/17 09:38 Dose: 40 mg Metoprolol Succinate (Toprol Xl) [address] [facility] Last Admin: 04/29/17 09:39 Dose: 25 mg Montelukast Sodium (Singulair) [address] [facility] Last Admin: 04/28/17 21:32 Dose: 10 mg Morphine Sulfate (Morphine Extended Release Tab) [address] [facility] Pantoprazole Sodium (Protonix Ec Tab) [address] [facility] Last Admin: 04/29/17 09:38 Dose: 40 mg Zolpidem Tartrate (Ambien) [address] [facility] Last Admin: 04/28/17 21:32 Dose: 5 mg - Extremities Exam Additional comments: RUE: splint from prior admission still intact. +ROM fingers flex/ext, complains of decreased sensation to radial side of ring finger and middle finger. intact to small finger. fingers warm, good cap refill. Assessment and Plan - Assessment and Plan (Free Text) Assessment: Left distal radius/ulnar styloid fracture -new xrays from 04/25 shows change in position of reduction, reviewed with Dr. Maya (who was consulted prior admission), states position is acceptable, elevate and maintain splint -daughter called at patient request, LM -elevation at all times Radiology Interpretation - Radiology Interpretation #2 Interpretation: Patient Name / ID : JOSE Kwong / [id number] Exam Date : 04/25/2017 09:47:57 ( Approved ) Study Comment : Sex / Age : F / [id number] Creator : García Morel MD Dictator : García Morel MD Permit Review Assistant : [place] Supervisor : García Morel MD Approver2 : Report Date : 04/25/2017 12:09:36 My Comment : Bilateral wrists 6 views History: Fracture. Comparison: None available. Findings: Left wrist: Overlying cast obscures fine osseous detail. Prominent comminuted distracted intra-articular fracture of the distal radius with prominent radial sided fracture fragment distracted approximately 2-3 millimeters. Vertically oriented extension from the radial cortex of the metaphysis to the intra-articular surface. Fracture deformity of the ulnar styloid. Degenerative changes at the 1st carpometacarpal joint space. Right wrist: Prominent narrowing of the radiocarpal joint space. Prominent degenerative changes of the 1st carpometacarpal joint space. Prominent degenerative changes noted at the articulation of the trapezium and trapezoid. Impression: Left wrist: Overlying cast obscures fine osseous detail. Prominent comminuted distracted intra-articular fracture of the distal radius with prominent radial sided fracture fragment distracted approximately 2-3 millimeters. Vertically oriented extension from the radial cortex of the metaphysis to the intra-articular surface. Fracture deformity of the ulnar styloid. Degenerative changes at the 1st carpometacarpal joint space. Right wrist: Prominent narrowing of the radiocarpal joint space. Prominent degenerative changes of the 1st carpometacarpal joint space. Prominent degenerative changes noted at the articulation of the trapezium and trapezoid. If pain persists, consider MRI.
--- NOTE | 2017-04-29 14:16 | CP.PCM.CON ---
History of Present Illness - History of Present Illness History of Present Illness: atient recently admitted to with NSTEMI and possible sepsis septic work upp neg at the time however procalcitonin level was 63 denies fever chills cough or SOB has open wound to sacrum- work up for OM reportedly negative 71 y/o woman with PMH of NSTEMI 04/23/2016, chronic sacral decubitus ulcer, right fibular fracture (01/16/17), osteoporosis, DM II, HTN, asthma, hypercholesterolemia, diverticulitis s/p Erinn's procedure w/ colostomy, HLD , CVA with right sided deficits, peripheral neuropathy, depression, anxiety, displaced fracture of left distal radius s/p fall at home is admitted for physical therapy in TCU. Left arm is in a cast. Patient has immobilizer boot for right ankle. Patient reports chronic sacral decubitus ulcer. PMHx: chronic sacral decubitus ulcer, right fibular fracture (01/16/17), right fibula fracture, osteoporosis, anemia, arthritis, IDDM now controlled with diet , HTN, asthma, hypercholesterolemia, diverticulitis s/p Erinn's procedure, HLD, CVA with right sided deficits, chronic back pain, peripheral neuropathy, depression, anxiety SurgHx: spinal surgery, Hartmanns' procedure (rectosigmoid colon resection with colostomy), multiple colostomies, cholecystectomy, hysterectomy, sacral wound debridement 06/10/2016 FMHx: mother secondary to diabetes complications, father was estranged SocHx: Denies smoking, alcohol, or drugs, has 1 daughter Review of Systems - Review of Systems All systems: reviewed and no additional remarkable complaints except - Constitutional Constitutional: As Per HPI. absent: Chills, Fever - EENT Eyes: absent: As Per HPI, Blind Spots, Blurred Vision, Change in Vision, Decreased Night Vision, Diplopia, Discharge, Dry Eye, Exophthalmos, Floaters, Irritation, Itchy Eyes, Loss of Peripheral Vision, Pain, Photophobia, Requires Corrective Lenses, Sees Flashes, Spots in Vision, Tunnel Vision, Other Visual Disturbances, Loss of Vision, Other Ears: absent: As Per HPI, Decreased Hearing, Ear Discharge, Ear Pain, Tinnitus, Abnormal Hearing, Disequilibrium, Dizziness, Other Nose/Mouth/Throat: absent: As Per HPI, Epistaxis, Nasal Congestion, Nasal Discharge, Nasal Obstruction, Nasal Trauma, Nose Pain, Post Nasal Drip, Sinus Pain, Sinus Pressure, Bleeding Gums, Change in Voice, Dental Pain, Dry Mouth, Dysphagia, Halitosis, Hoarsness, Lip Swelling, Mouth Lesions, Mouth Pain, Odynophagia, Sore Throat, Throat Swelling, Tongue Swelling, Facial Pain, Neck Pain, Neck Mass, Other - Breasts Breasts: absent: As Per HPI, Change in Shape, Mass, Pain, Nipple Discharge, Nipple Inversion, Skin Changes, Swelling, Other - Cardiovascular Cardiovascular: absent: As Per HPI, Acrocyanosis, Chest Pain, Chest Pain at Rest , Chest Pain with Activity, Claudication, Diaphoresis, Dyspnea, Dyspnea on Exertion, Edema, Irregular Heart Rhythm, Pain Radiating to Arm/Neck/Jaw, Leg Edema, Leg Ulcers, Lightheadedness, Orthopnea, Palpitations, Paroxysmal Nocturnal Dyspnea, Pedal Edema, Radiating Pain, Rapid Heart Rate, Slow Heart Rate, Syncope, Other - Respiratory Respiratory: absent: As Per HPI, Cough, Dyspnea, Hemoptysis, Dyspnea on Exertion , Wheezing, Snoring, Stridor, Pain on Inspiration, Chest Congestion, Excessive Mucous Production, Change in Mucous Color, Pain with Coughing, Other - Gastrointestinal Gastrointestinal: As Per HPI - Genitourinary Genitourinary: absent: As Per HPI, Change in Urinary Stream, Difficulty Urinating, Dysuria, Flank Pain, Hematuria, Pyuria, Nocturia, Urinary Incontinence, Urinary Frequency, Urinary Hesitance, Urinary Urgency, Voiding Freq/Small Amts, Freq UTI, Hx Renal/Bladder Calculi, Hx /Renal Surgery, Bladder Distension, Other - Reproductive: Female Reproductive:Female: absent: As Per HPI, Amenorrhea, Amenorrhea/ Control, Currently Menstual, Cycle <21 Days, Cycle >35 Days, Cycle Variable, Menses 1-7 Days, Menses >/= 8 Days, Menses Variable, Cycle > 4 Weeks Between, No Menses for 6 Months, Heavy Menses, Light Menses, Normal Menses, Spotting Between Cycles , S/P Hysterectomy, Menopausal, Post Menopausal, Premenarche, Abnormal Vaginal Bleeding, Dysmenorrhea, Dyspareunia, Genital Lesions, Genital Pruritis, Pelvic Pain, Prolapse Symptoms, Sexual Dysfunction, Vaginal Discharge, Vaginal Dryness , Vaginal Odor, Vaginal Pruritis, Other - Menstruation Menstruation: absent: As Per HPI, Amenorrhea, Amenorrhea/ Control, Currently Menstual, Cycle <21 Days, Cycle >35 Days, Cycle Variable, Menses 1-7 Days, Menses >/= 8 Days, Menses Variable, Cycle > 4 Weeks Between, No Menses for 6 Months, Heavy Menses, Light Menses, Normal Menses, Spotting Between Cycles , S/P Hysterectomy, Menopausal, Post Menopausal, Premenarche, Abnormal Vaginal Bleeding, Dysmenorrhea, Other - Musculoskeletal Musculoskeletal: As Per HPI - Integumentary Integumentary: As Per HPI - Neurological Neurological: absent: As Per HPI, Abnormal Gait, Abnormal Hearing, Abnormal Movements, Abnormal Speech, Behavioral Changes, Burning Sensations, Confusion, Convulsions, Disequilibrium, Dizziness, Numbness, Focal Weakness, Frequent Falls , Headaches, Lack of Coordination, Loss of Vision, Memory Loss, Paresthesias, Radicular Pain, Restless Legs, Sensory Deficit, Syncope, Tingling, Tremor, Vertigo, Weakness, Other Visual Disturbances, Other - Psychiatric Psychiatric: absent: As Per HPI, Abnormal Sleep Pattern, Anhedonia, Anxiety, Auditory Hallucinations, Behavioral Changes, Change in Appetite, Change in Libido, Confusion, Depression, Difficulty Concentrating, Hallucinations, Homicidal Ideation, Hopelessness, Irritability, Memory Loss, Mood Swings, Panic Attacks, Paranoia, Suicidal Ideation, Visual Hallucinations, Tactile Hallucinations, Other Past Patient History - Infectious Disease Hx of Infectious Diseases: None - Past Medical History & Family History Past Medical History?: Yes - Past Social History Smoking Status: Never Smoked - CARDIAC Hx Hypercholesterolemia: Yes Hx Hypertension: Yes - PULMONARY Hx Asthma: Yes Hx Chronic Obstructive Pulmonary Disease (COPD): No Hx Pneumonia: Yes - NEUROLOGICAL Hx Transient Ischemic Attacks (TIA): Yes - HEENT Other/Comment: GLASSES - NEARSIGHTEDNESS. - RENAL Hx Chronic Kidney Disease: No - ENDOCRINE/METABOLIC Hx Diabetes Mellitus Type 2: Yes - HEMATOLOGICAL/ONCOLOGICAL Hx AIDS: No Hx Anemia: Yes Hx Blood Transfusions: Yes Hx Human Immunodeficiency Virus (HIV): No - INTEGUMENTARY Hx Cellulitis: Yes (BLE) Other/Comment: Sacral decubiti, RIGHT HEEL (DTI) - MUSCULOSKELETAL/RHEUMATOLOGICAL Hx Falls: Yes (fx left wrist) - GASTROINTESTINAL Hx Colostomy: Yes Hx Diverticulitis: Yes (s/p Erinn procedure) - GENITOURINARY/GYNECOLOGICAL Hx Genitourinary Disorders: No Other/Comment: bladder fistula - PSYCHIATRIC Hx Anxiety: Yes Hx Substance Use: No - SURGICAL HISTORY Hx Cholecystectomy: Yes - ANESTHESIA Hx Anesthesia: Yes Hx Anesthesia Reactions: No Hx Malignant Hyperthermia: No Meds Allergies/Adverse Reactions: Allergies Allergy/AdvReac Type Severity Reaction Status Date / Time iodine Allergy RASH Verified 04/23/17 07:10 Sulfa (Sulfonamide Allergy RASH Verified 04/27/17 17:35 Antibiotics) - Medications Medications: Current Medications Acetaminophen (Tylenol 325mg Tab) 650 mg PO Q4 PRN PRN Reason: Fever of 100.6 F and Above Acetaminophen (Tylenol 325mg Tab) 650 mg PO Q4 PRN PRN Reason: Pain, Mild (1-3) Aspirin (Aspirin Chewable) 81 mg PO DAILY [facility] Last Admin: 04/29/17 09:38 Dose: 81 mg Atorvastatin Calcium (Lipitor) 40 mg PO HS [facility] Last Admin: 04/28/17 21:32 Dose: 40 mg Dextrose (Dextrose 50% Inj) 0 ml IV STAT PRN; Protocol PRN Reason: Hypoglycemia Protocol Dextrose (Glutose 15) 0 gm PO ONCE PRN; Protocol PRN Reason: Hypoglycemia Protocol Enoxaparin Sodium (Lovenox) 40 mg SC DAILY [facility] PRN Reason: Protocol Last Admin: 04/29/17 09:37 Dose: 40 mg Ferrous Sulfate (Feosol) 325 mg PO DAILY [facility] Last Admin: 04/29/17 09:39 Dose: 325 mg Glucagon (Glucagen Diagnostic Kit) 0 mg IM STAT PRN; Protocol PRN Reason: Hypoglycemia Protocol Ciprofloxacin (Cipro 200mg/100ml D5w) 100 mls @ 100 mls/hr IVPB Q12@0500,1700 [facility] Last Admin: 04/29/17 05:13 Dose: 100 mls/hr Vancomycin HCl 1 gm/ Sodium (Chloride) 250 mls @ 166.667 mls/hr IVPB DAILY@ 1700 [facility] PRN Reason: Protocol Last Admin: 04/28/17 18:38 Dose: 166.667 mls/hr Insulin Human Lispro (Humalog) 0 units SC ACHS [facility] PRN Reason: Protocol Last Admin: 04/29/17 12:26 Dose: Not Given Lisinopril (Zestril) 40 mg PO DAILY [facility] Last Admin: 04/29/17 09:38 Dose: 40 mg Metoprolol Succinate (Toprol Xl) 25 mg PO DAILY [facility] Last Admin: 04/29/17 09:39 Dose: 25 mg Montelukast Sodium (Singulair) 10 mg PO HS [facility] Last Admin: 04/28/17 21:32 Dose: 10 mg Morphine Sulfate (Morphine Extended Release Tab) 30 mg PO Q12 [facility] Pantoprazole Sodium (Protonix Ec Tab) 40 mg PO DAILY [facility] Last Admin: 04/29/17 09:38 Dose: 40 mg Zolpidem Tartrate (Ambien) 5 mg PO HS [facility] Last Admin: 04/28/17 21:32 Dose: 5 mg Physical Exam - Constitutional Appears: Non-toxic, Chronically Ill - Head Exam Head Exam: NORMOCEPHALIC - Eye Exam Eye Exam: PERRL. absent: Scleral icterus - ENT Exam ENT Exam: Mucous Membranes Dry - Neck Exam Neck exam: Negative for: Lymphadenopathy - Respiratory Exam Respiratory Exam: Decreased Breath Sounds, Clear to Auscultation Bilateral - Cardiovascular Exam Cardiovascular Exam: REGULAR RHYTHM, +S1, +S2 - GI/Abdominal Exam GI & Abdominal Exam: Diminished Bowel Sounds, Soft. absent: Tenderness - Rectal Exam Rectal Exam: Deferred - Exam Exam: NORMAL INSPECTION - Extremities Exam Extremities exam: Positive for: pedal pulses present. Negative for: calf tenderness, pedal edema, tenderness - Back Exam Back exam: absent: CVA tenderness (L), CVA tenderness (R) - Neurological Exam Neurological exam: Alert, CN II-XII Intact, Oriented x3, Reflexes Normal - Psychiatric Exam Psychiatric exam: Normal Mood - Skin Skin Exam: Dry Results - Vital Signs Recent Vital Signs: Last Vital Signs Temp 98.2 F 04/29/17 09:17 Pulse 73 04/29/17 09:39 Resp 20 04/29/17 09:17 BP 154/80 H 04/29/17 09:39 Pulse Ox 98 04/29/17 09:17 - Labs Labs: Laboratory Results - last 24 hr 04/29/17 05:15 POC Glucose (mg/dL) 130 H Assessment & Plan - Assessment and Plan (Free Text) Assessment: s/p nstemi SIRS and sepsis on admission to - source unclear s/p Fx multiple co-morbidities Cont IV antibiotics, wound care Consider CT sacrum ortho and surgical eval
[2017-04-29] MEDS: Morphine 30 mg SR Tab PO SCH (20:11)
[2017-04-30] MEDS: Ciprofloxacin 200mg/100ml D5W 100 ML IVPB SCH ×2 (04:57→16:24)
[2017-04-30] MEDS: Insulin Lispro (humaLOG) 100 Units/ml Inj SC SCH ×4 (06:49→21:18)
[2017-04-30] MEDS: Pantoprazole 40 mg EC Tab PO SCH (09:12)
[2017-04-30] MEDS: Metoprolol Succinate 25 mg XL Tab PO SCH (09:12)
[2017-04-30] MEDS: Enoxaparin 40 mg Syringe SC SCH (09:13)
[2017-04-30] MEDS: Morphine 30 mg SR Tab PO SCH ×2 (09:15→21:15)
[2017-04-30 09:58] LABS: BASO % 0.8 % (0.0-2.0); EOS # 0.1 K/uL (0.0-0.7); EOS % 2.4 % (0.0-4.0); HEMOGLOBIN 9.9 g/dL (12.0-16.0); LYMPH # 0.8 K/uL (1.0-4.3); LYMPH % 14.7 % (20.0-40.0); MEAN CELL VOLUME 82.8 fl (81.0-99.0); MEAN CORPUSCULAR HEMOGLOBIN 26.3 pg (27.0-31.0); MEAN CORPUSCULAR HGB CONC 31.8 g/dL (33.0-37.0); MEAN PLATELET VOLUME 8.6 fl (7.2-11.7); MONO # 0.5 K/uL (0.0-0.8); MONO % 9.3 % (0.0-10.0); NEUT # 4.1 K/uL (1.8-7.0); NEUT % 72.8 % (50.0-75.0); NRBC % 0.1 % (0.0-0.0); RBC 3.78 Mil/uL (3.80-5.20); WHITE BLOOD COUNT 5.6 K/uL (4.8-10.8)
[2017-04-30 10:02] LABS: CALCIUM 9.2 mg/dL (8.4-10.2)
[2017-04-30] MEDS ORDERED: Oxycodone/Acetaminophen 5/325 mg Tab PO PRN (10:18)
--- NOTE | 2017-04-30 13:50 | CP.PCM.PCO ---
Physician Communication Note - Physician Communication Note Physician Communication Note: Vanc trough >20, plan to decrease vancomycin from 1gm to 500mg daily
[2017-05-01] MEDS: Ciprofloxacin 200mg/100ml D5W 100 ML IVPB SCH ×2 (05:13→17:33)
[2017-05-01] MEDS: Insulin Lispro (humaLOG) 100 Units/ml Inj SC SCH ×4 (08:27→21:35)
[2017-05-01] MEDS: Pantoprazole 40 mg EC Tab PO SCH (08:31)
[2017-05-01] MEDS: Metoprolol Succinate 25 mg XL Tab PO SCH (08:31)
[2017-05-01] MEDS: Enoxaparin 40 mg Syringe SC SCH (08:32)
[2017-05-01] MEDS: Morphine 30 mg SR Tab PO SCH ×2 (08:35→21:18)
--- NOTE | 2017-05-01 12:51 | CP.PCM.PN ---
Subjective - Date & Time of Evaluation Date of Evaluation: 05/01/17 Time of Evaluation: 07:00 - Subjective Subjective: 71 yo female with hx of multiple falls, fractures and sacral wound Was admitted to ICU from [facility] for sepsis with procalcitonin level of 63 was cultured and started on IV antibiotics- all cultures were neg Objective - Vital Signs/Intake and Output Vital Signs (last 24 hours): Temp Pulse Resp BP Pulse Ox 96.3 F L 60 20 133/67 99 05/01/17 09:19 05/01/17 09:19 05/01/17 09:19 05/01/17 09:19 05/01/17 09:19 - Medications Medications: Current Medications Acetaminophen (Tylenol 325mg Tab) 650 mg PO Q4 PRN PRN Reason: Fever of 100.6 F and Above Acetaminophen (Tylenol 325mg Tab) 650 mg PO Q4 PRN PRN Reason: Pain, Mild (1-3) Last Admin: 04/30/17 06:34 Dose: 650 mg Aspirin (Aspirin Chewable) 81 mg PO DAILY [facility] Last Admin: 05/01/17 08:31 Dose: 81 mg Atorvastatin Calcium (Lipitor) 40 mg PO HS [facility] Last Admin: 04/30/17 21:15 Dose: 40 mg Dextrose (Dextrose 50% Inj) 0 ml IV STAT PRN; Protocol PRN Reason: Hypoglycemia Protocol Dextrose (Glutose 15) 0 gm PO ONCE PRN; Protocol PRN Reason: Hypoglycemia Protocol Docusate Sodium (Colace) 100 mg PO BID [facility] Last Admin: 05/01/17 08:31 Dose: 100 mg Ferrous Sulfate (Feosol) 325 mg PO DAILY [facility] Last Admin: 05/01/17 08:31 Dose: 325 mg Glucagon (Glucagen Diagnostic Kit) 0 mg IM STAT PRN; Protocol PRN Reason: Hypoglycemia Protocol Ciprofloxacin (Cipro 200mg/100ml D5w) 100 mls @ 100 mls/hr IVPB Q12@0500,1700 [facility] Last Admin: 05/01/17 05:13 Dose: 100 mls/hr Vancomycin HCl 500 mg/ Sodium (Chloride) 100 mls @ 100 mls/hr IVPB DAILY@1700 [facility] PRN Reason: Protocol Last Admin: 04/30/17 17:43 Dose: 100 mls/hr Insulin Human Lispro (Humalog) 0 units SC ACHS [facility] PRN Reason: Protocol Last Admin: 05/01/17 11:47 Dose: Not Given Lisinopril (Zestril) 40 mg PO DAILY [facility] Last Admin: 05/01/17 08:31 Dose: 40 mg Metoprolol Succinate (Toprol Xl) 25 mg PO DAILY [facility] Last Admin: 05/01/17 08:31 Dose: 25 mg Montelukast Sodium (Singulair) 10 mg PO [facility] Last Admin: 04/30/17 21:14 Dose: 10 mg Morphine Sulfate (Morphine Extended Release Tab) 30 mg PO Q12 [facility] Last Admin: 05/01/17 08:35 Dose: 30 mg Oxycodone/Acetaminophen (Percocet 5/325 Mg Tab) 1 tab PO Q12 PRN PRN Reason: Pain, moderate (4-7) Stop: 05/03/17 21:01 Pantoprazole Sodium (Protonix Ec Tab) 40 mg PO DAILY [facility] Last Admin: 05/01/17 08:31 Dose: 40 mg Zolpidem Tartrate (Ambien) 5 mg PO [facility] Last Admin: 04/30/17 21:15 Dose: 5 mg - Labs Labs: 04/30/17 08:35 04/30/17 08:35 - Constitutional Appears: Non-toxic, Chronically Ill - Head Exam Head Exam: NORMOCEPHALIC - Eye Exam Eye Exam: PERRL - ENT Exam ENT Exam: Mucous Membranes Dry - Neck Exam Neck Exam: absent: Lymphadenopathy - Respiratory Exam Respiratory Exam: Decreased Breath Sounds, Clear to Ausculation Bilateral, Prolonged Expiratory Phase - Cardiovascular Exam Cardiovascular Exam: REGULAR RHYTHM, +S1, +S2 - GI/Abdominal Exam GI & Abdominal Exam: Distended, Soft. absent: Tenderness - Rectal Exam Rectal Exam: Deferred - Exam Exam: NORMAL INSPECTION - Extremities Exam Extremities Exam: absent: Pedal Edema - Back Exam Back Exam: absent: CVA tenderness (L), CVA tenderness (R) - Neurological Exam Neurological Exam: Alert, Awake, Oriented x3 - Psychiatric Exam Psychiatric exam: Normal Mood - Skin Skin Exam: Dry, Intact Assessment and Plan - Assessment and Plan (Free Text) Assessment: cultures neg thus far will repeat procalcitonin level would recommend completing 14 days total IV antibiotics consider wound care eval, CT sacrum , neuro consult and eval for recurrent falls
--- NOTE | 2017-05-01 20:58 | CP.PCM.PN ---
Subjective - Date & Time of Evaluation Date of Evaluation: 05/01/17 Time of Evaluation: 12:00 - Subjective Subjective: Patent c/o lower ext pruritis feet and toes also colostomy bag no significant stool last 2 days Objective - Vital Signs/Intake and Output Vital Signs (last 24 hours): Temp Pulse Resp BP Pulse Ox 97.3 F L 55 L 20 117/49 L 100 05/01/17 20:13 05/01/17 20:13 05/01/17 20:13 05/01/17 20:13 05/01/17 20:13 - Medications Medications: Current Medications Acetaminophen (Tylenol 325mg Tab) 650 mg PO Q4 PRN PRN Reason: Fever of 100.6 F and Above Acetaminophen (Tylenol 325mg Tab) 650 mg PO Q4 PRN PRN Reason: Pain, Mild (1-3) Last Admin: 04/30/17 06:34 Dose: 650 mg Aspirin (Aspirin Chewable) 81 mg PO DAILY [facility] Last Admin: 05/01/17 08:31 Dose: 81 mg Atorvastatin Calcium (Lipitor) 40 mg PO HS [facility] Last Admin: 04/30/17 21:15 Dose: 40 mg Clotrimazole (Lotrimin Af 1%) 1 applic TOP BID [facility] Last Admin: 05/01/17 17:32 Dose: 1 unit Dextrose (Dextrose 50% Inj) 0 ml IV STAT PRN; Protocol PRN Reason: Hypoglycemia Protocol Dextrose (Glutose 15) 0 gm PO ONCE PRN; Protocol PRN Reason: Hypoglycemia Protocol Docusate Sodium (Colace) 100 mg PO BID [facility] Last Admin: 05/01/17 17:32 Dose: 100 mg Enoxaparin Sodium (Lovenox) 40 mg SC DAILY [facility] PRN Reason: Protocol Ferrous Sulfate (Feosol) 325 mg PO DAILY [facility] Last Admin: 05/01/17 08:31 Dose: 325 mg Glucagon (Glucagen Diagnostic Kit) 0 mg IM STAT PRN; Protocol PRN Reason: Hypoglycemia Protocol Hydrocortisone (Hydrocortisone 2.5%) 1 applic TOP BID [facility] Ciprofloxacin (Cipro 200mg/100ml D5w) 100 mls @ 100 mls/hr IVPB Q12@0500,1700 [facility] Last Admin: 05/01/17 17:33 Dose: 100 mls/hr Vancomycin HCl 500 mg/ Sodium (Chloride) 100 mls @ 100 mls/hr IVPB DAILY@1700 [facility] PRN Reason: Protocol Last Admin: 05/01/17 17:33 Dose: 100 mls/hr Insulin Human Lispro (Humalog) 0 units SC ACHS [facility] PRN Reason: Protocol Last Admin: 05/01/17 17:29 Dose: Not Given Lactic Acid (Lac-Hydrin 12% Lotion (225 G)) 1 applic TOP TID [facility] Last Admin: 05/01/17 17:32 Dose: 1 unit Lisinopril (Zestril) 40 mg PO DAILY [facility] Last Admin: 05/01/17 08:31 Dose: 40 mg Metoprolol Succinate (Toprol Xl) 25 mg PO DAILY [facility] Last Admin: 05/01/17 08:31 Dose: 25 mg Montelukast Sodium (Singulair) 10 mg PO HS [facility] Last Admin: 04/30/17 21:14 Dose: 10 mg Morphine Sulfate (Morphine Extended Release Tab) 30 mg PO Q12 [facility] Last Admin: 05/01/17 08:35 Dose: 30 mg Oxycodone/Acetaminophen (Percocet 5/325 Mg Tab) 1 tab PO Q12 PRN PRN Reason: Pain, moderate (4-7) Stop: 05/03/17 21:01 Pantoprazole Sodium (Protonix Ec Tab) 40 mg PO DAILY [facility] Last Admin: 05/01/17 08:31 Dose: 40 mg Zolpidem Tartrate (Ambien) 5 mg PO HS [facility] Last Admin: 04/30/17 21:15 Dose: 5 mg - Labs Labs: 04/30/17 08:35 04/30/17 08:35 - Additional Findings Additional findings: ABD soft pos BS air in colostomy bag SKIN lower ext scaling also interdigital no maceration ext no edema Assessment and Plan - Assessment and Plan (Free Text) Assessment: Constipation start colace 100mg bid Tinea Pedis clotrimazole 1% Xerosis lachydrin lotion
[2017-05-02] MEDS: Ciprofloxacin 200mg/100ml D5W 100 ML IVPB SCH ×2 (05:25→16:31)
[2017-05-02] MEDS: Insulin Lispro (humaLOG) 100 Units/ml Inj SC SCH ×4 (06:43→21:40)
[2017-05-02] MEDS: Metoprolol Succinate 25 mg XL Tab PO SCH (08:32)
[2017-05-02] MEDS: Pantoprazole 40 mg EC Tab PO SCH (08:32)
[2017-05-02] MEDS: Enoxaparin 40 mg Syringe SC SCH (08:33)
[2017-05-02] MEDS: Morphine 30 mg SR Tab PO SCH ×2 (08:37→21:44)
--- NOTE | 2017-05-02 10:27 | CP.PCM.PN ---
Subjective - Date & Time of Evaluation Date of Evaluation: 05/02/17 Time of Evaluation: 10:25 - Subjective Subjective: Patient still complaining of wrist pain and tingling in fingers. No new complaints. Objective - Vital Signs/Intake and Output Vital Signs (last 24 hours): Temp Pulse Resp BP Pulse Ox 98.1 F 62 20 116/55 L 99 05/02/17 08:01 05/02/17 08:32 05/02/17 08:01 05/02/17 08:32 05/02/17 08:01 - Medications Medications: Current Medications Acetaminophen (Tylenol 325mg Tab) 650 mg PO Q4 PRN PRN Reason: Fever of 100.6 F and Above Acetaminophen (Tylenol 325mg Tab) 650 mg PO Q4 PRN PRN Reason: Pain, Mild (1-3) Last Admin: 04/30/17 06:34 Dose: 650 mg Aspirin (Aspirin Chewable) 81 mg PO DAILY [facility] Last Admin: 05/02/17 08:32 Dose: 81 mg Atorvastatin Calcium (Lipitor) 40 mg PO HS [facility] Last Admin: 05/01/17 21:18 Dose: 40 mg Clotrimazole (Lotrimin Af 1%) 1 applic TOP BID [facility] Last Admin: 05/02/17 08:33 Dose: 1 unit Dextrose (Dextrose 50% Inj) 0 ml IV STAT PRN; Protocol PRN Reason: Hypoglycemia Protocol Dextrose (Glutose 15) 0 gm PO ONCE PRN; Protocol PRN Reason: Hypoglycemia Protocol Docusate Sodium (Colace) 100 mg PO BID [facility] Last Admin: 05/02/17 08:32 Dose: 100 mg Enoxaparin Sodium (Lovenox) 40 mg SC DAILY [facility] PRN Reason: Protocol Last Admin: 05/02/17 08:33 Dose: 40 mg Ferrous Sulfate (Feosol) 325 mg PO DAILY [facility] Last Admin: 05/02/17 08:32 Dose: 325 mg Glucagon (Glucagen Diagnostic Kit) 0 mg IM STAT PRN; Protocol PRN Reason: Hypoglycemia Protocol Hydrocortisone (Hydrocortisone 2.5%) 1 applic TOP BID [facility] Last Admin: 05/02/17 08:34 Dose: 1 applic Ciprofloxacin (Cipro 200mg/100ml D5w) 100 mls @ 100 mls/hr IVPB Q12@0500,1700 [facility] Last Admin: 05/02/17 05:25 Dose: 100 mls/hr Vancomycin HCl 500 mg/ Sodium (Chloride) 100 mls @ 100 mls/hr IVPB DAILY@1700 [facility] PRN Reason: Protocol Last Admin: 05/01/17 17:33 Dose: 100 mls/hr Insulin Human Lispro (Humalog) 0 units SC ACHS [facility] PRN Reason: Protocol Last Admin: 05/02/17 06:43 Dose: Not Given Lactic Acid (Lac-Hydrin 12% Lotion (225 G)) 1 applic TOP TID [facility] Last Admin: 05/02/17 08:33 Dose: 1 unit Lisinopril (Zestril) 40 mg PO DAILY [facility] Last Admin: 05/02/17 08:32 Dose: 40 mg Metoprolol Succinate (Toprol Xl) 25 mg PO DAILY [facility] Last Admin: 05/02/17 08:32 Dose: 25 mg Montelukast Sodium (Singulair) 10 mg PO HS [facility] Last Admin: 05/01/17 21:18 Dose: 10 mg Morphine Sulfate (Morphine Extended Release Tab) 30 mg PO Q12 [facility] Last Admin: 05/02/17 08:37 Dose: 30 mg Oxycodone/Acetaminophen (Percocet 5/325 Mg Tab) 1 tab PO Q12 PRN PRN Reason: Pain, moderate (4-7) Stop: 05/03/17 21:01 Last Admin: 05/02/17 03:41 Dose: 1 tab Pantoprazole Sodium (Protonix Ec Tab) 40 mg PO DAILY [facility] Last Admin: 05/02/17 08:32 Dose: 40 mg Zolpidem Tartrate (Ambien) 5 mg PO [facility] Last Admin: 05/01/17 23:29 Dose: Not Given - Labs Labs: 04/30/17 08:35 04/30/17 08:35 - Extremities Exam Additional comments: LUE: splint intact. +ROM fingers, decreased sensation to middle finger and ring finger median nerve distrib. Fingers warm, good cap refill. Assessment and Plan (1) Closed fracture of left distal radius Assessment & Plan: follow up xrays continue splint and elevation d/w Dr. Maya, aware of NV exam, will review f/u xrays Status: Acute (2) Displaced fracture of left ulna styloid process, initial encounter for closed fracture Status: Acute
--- NOTE | 2017-05-02 13:39 | CP.PCM.PN ---
Subjective - Date & Time of Evaluation Date of Evaluation: 05/02/17 Time of Evaluation: 13:36 - Subjective Subjective: No acute overnight events. Pt endorsed constipation previously, but states that she had a large bowel movement this AM. Continues to endorse itchiness in L feet. Denies chest pain, dyspnea, n/v/d/c. Objective - Vital Signs/Intake and Output Vital Signs (last 24 hours): Temp Pulse Resp BP Pulse Ox 98.1 F 62 20 116/55 L 99 05/02/17 08:01 05/02/17 08:32 05/02/17 08:01 05/02/17 08:32 05/02/17 08:01 - Medications Medications: Current Medications Acetaminophen (Tylenol 325mg Tab) 650 mg PO Q4 PRN PRN Reason: Fever of 100.6 F and Above Acetaminophen (Tylenol 325mg Tab) 650 mg PO Q4 PRN PRN Reason: Pain, Mild (1-3) Last Admin: 04/30/17 06:34 Dose: 650 mg Aspirin (Aspirin Chewable) 81 mg PO DAILY [facility] Last Admin: 05/02/17 08:32 Dose: 81 mg Atorvastatin Calcium (Lipitor) 40 mg PO HS [facility] Last Admin: 05/01/17 21:18 Dose: 40 mg Clotrimazole (Lotrimin Af 1%) 1 applic TOP BID [facility] Last Admin: 05/02/17 08:33 Dose: 1 unit Dextrose (Dextrose 50% Inj) 0 ml IV STAT PRN; Protocol PRN Reason: Hypoglycemia Protocol Dextrose (Glutose 15) 0 gm PO ONCE PRN; Protocol PRN Reason: Hypoglycemia Protocol Docusate Sodium (Colace) 100 mg PO BID [facility] Last Admin: 05/02/17 08:32 Dose: 100 mg Enoxaparin Sodium (Lovenox) 40 mg SC DAILY [facility] PRN Reason: Protocol Last Admin: 05/02/17 08:33 Dose: 40 mg Ferrous Sulfate (Feosol) 325 mg PO DAILY [facility] Last Admin: 05/02/17 08:32 Dose: 325 mg Glucagon (Glucagen Diagnostic Kit) 0 mg IM STAT PRN; Protocol PRN Reason: Hypoglycemia Protocol Hydrocortisone (Hydrocortisone 2.5%) 1 applic TOP BID [facility] Last Admin: 05/02/17 08:34 Dose: 1 applic Ciprofloxacin (Cipro 200mg/100ml D5w) 100 mls @ 100 mls/hr IVPB Q12@0500,1700 [facility] Last Admin: 05/02/17 05:25 Dose: 100 mls/hr Vancomycin HCl 500 mg/ Sodium (Chloride) 100 mls @ 100 mls/hr IVPB DAILY@1700 [facility] PRN Reason: Protocol Last Admin: 05/01/17 17:33 Dose: 100 mls/hr Insulin Human Lispro (Humalog) 0 units SC ACHS [facility] PRN Reason: Protocol Last Admin: 05/02/17 12:25 Dose: Not Given Lactic Acid (Lac-Hydrin 12% Lotion (225 G)) 1 applic TOP TID [facility] Last Admin: 05/02/17 13:04 Dose: 1 unit Lisinopril (Zestril) 40 mg PO DAILY [facility] Last Admin: 05/02/17 08:32 Dose: 40 mg Metoprolol Succinate (Toprol Xl) 25 mg PO DAILY [facility] Last Admin: 05/02/17 08:32 Dose: 25 mg Montelukast Sodium (Singulair) 10 mg PO [facility] Last Admin: 05/01/17 21:18 Dose: 10 mg Morphine Sulfate (Morphine Extended Release Tab) 30 mg PO Q12 [facility] Last Admin: 05/02/17 08:37 Dose: 30 mg Oxycodone/Acetaminophen (Percocet 5/325 Mg Tab) 1 tab PO Q12 PRN PRN Reason: Pain, moderate (4-7) Stop: 05/03/17 21:01 Last Admin: 05/02/17 03:41 Dose: 1 tab Pantoprazole Sodium (Protonix Ec Tab) 40 mg PO DAILY [facility] Last Admin: 05/02/17 08:32 Dose: 40 mg Zolpidem Tartrate (Ambien) 5 mg PO [facility] Last Admin: 05/01/17 23:29 Dose: Not Given - Labs Labs: 04/30/17 08:35 04/30/17 08:35 - Constitutional Appears: No Acute Distress - Head Exam Head Exam: ATRAUMATIC, NORMAL INSPECTION - Eye Exam Eye Exam: EOMI, Normal appearance - ENT Exam ENT Exam: Mucous Membranes Moist - Neck Exam Neck Exam: Full ROM - Respiratory Exam Respiratory Exam: Clear to Ausculation Bilateral, NORMAL BREATHING PATTERN. absent: Wheezes - Cardiovascular Exam Cardiovascular Exam: REGULAR RHYTHM, +S1, +S2 - GI/Abdominal Exam GI & Abdominal Exam: Soft, Normal Bowel Sounds. absent: Tenderness Additional comments: colostomy in LUQ, stool seen in bag, brown/green-jesse in color. Old midline exlap scar, well healed. - Extremities Exam Extremities Exam: Full ROM, Normal Inspection. absent: Pedal Edema Additional comments: dry skin noted around the L feet around the digits. LUE in a cast. Mild edema in the fingers. Sensory and motor intact. Chronic skin changes in lower extremities. - Back Exam Back Exam: NORMAL INSPECTION. absent: CVA tenderness (L), CVA tenderness (R) - Neurological Exam Neurological Exam: Alert, Awake, Oriented x3 - Psychiatric Exam Psychiatric exam: Normal Affect, Normal Mood - Skin Skin Exam: Dry, Intact, Normal Color, Warm Assessment and Plan - Assessment and Plan (Free Text) Assessment: Assessment/Plan: 71 y/o woman with PMH of NSTEMI 04/23/2016, chronic sacral decubitus ulcer, right fibular fracture (01/16/17), osteoporosis, DM II, HTN, asthma, hypercholesterolemia, diverticulitis s/p Erinn's procedure w/ colostomy, HLD , CVA with right sided deficits, peripheral neuropathy, depression, anxiety, displaced fracture of left distal radius is admitted to TCU from [facility] for PT/OT. 1) Left wrist fracture - left wrist in cast - B/L wrist xray 04/25/17: Left distracted intra-articular fracture of distal radius from 04/03/17 fall. Right wrist shows chronic degenerative diseases - Venous duplex study showed evidence phlebitis of the right basilic vein, no evidence of DVT - ortho consulted, xray of LUE pending - Continue tylenol and started morphine ER BID 2) Right fibular fracture -stable - foot/ankle XR 04/15/2017: fracture of right malleolus/distal fibula at intermediate stage of healing, no acute fracture/dislocation. Diffuse osteopenia suggests osteoporosis - podiatry consulted, PT/OT in TCU - tylenol and morphine for pain 3) HTN - controlled - Lisinopril 40 mg PO daily [facility] - Cont to monitor 4) NSTEMI -stable - elevated troponin 04/23/2017 - Echo 04/23/2017: LVEF greater than 70%, LV diastolic function is abnormal. no regional wall motion abnormalities. RV normal size. RV systolic function normal. LA normal size. Trace to mild tricuspid regurgitation - asa 81 mg PO daily - atorvastatin 40 mg PO daily - metoprolol succinate 25 mg PO daily 5) Elevated Procalcitonin - elevated 63.23 on 04/24/17 - unknown source of infection, pt afebrile - ID consulted, continue abx - continue vanc and cipro x 7 days, D5/7 - vancomycin throgh 6) Stage 4 sacral decubitus ulcer - chronic, stable - Continue wound care management - Turn Q2H 7) Diabetes - stable - A1c 6.0 on 04/23/17 - insulin lispro correction scale - hypoglycemic protocol 8) Anemia, Normocytic - stable - hx of microcytic anemia - H/H 9.9/31.3 HCV 82.8 - no acute source of bleeding - continue FeSO4 325 mg PO daily 9) Depression, Anxiety - recent hospitalization in [facility] for AMS, serotonin syndrome - psychiatry consulted, hold psych meds. 10) Pruritus of L feet -likely 2/2 to dry skin vs fungal infection -clotrimazole 1% -ammonium lactate -hydrocortisone 1% cream 11) Constipation -resolved -continue colace BID 12) Prophylaxis - lovenox - protonix 40mg PO daily - turn q2h - wound care
[2017-05-03 06:10] LABS: HEMOGLOBIN 9.3 g/dL (12.0-16.0); MEAN CELL VOLUME 84.4 fl (81.0-99.0); MEAN CORPUSCULAR HEMOGLOBIN 26.5 pg (27.0-31.0); MEAN CORPUSCULAR HGB CONC 31.4 g/dL (33.0-37.0); RBC 3.49 Mil/uL (3.80-5.20); RED CELL DISTRIBUTION WIDTH 17.7 % (11.5-14.5); WHITE BLOOD COUNT 5.1 K/uL (4.8-10.8)
[2017-05-03 06:22] LABS: CALCIUM 9.1 mg/dL (8.4-10.2)
[2017-05-03] MEDS: Insulin Lispro (humaLOG) 100 Units/ml Inj SC SCH ×4 (07:45→21:24)
--- NOTE | 2017-05-03 08:07 | RAD ---
PROCEDURE: Left Wrist Radiographs. HISTORY: fracture follow up COMPARISON: Left wrist 04/15/2017. FINDINGS: BONES: Cast obscures fine bony detail. Distal radial fracture is again appreciated potentially with further impaction but stable dorsal angulation. Further distraction of the fracture laterally is questioned as well. Ulnar styloid fracture again identified. JOINTS: No interval dislocations appreciable grossly or subluxation. Degenerative changes seen throughout the carpal metacarpal carpal carpal joints as well as the radiocarpal joints. SOFT TISSUES: Local soft tissue edema again evident. OTHER FINDINGS: None. IMPRESSION: Pattern suspicious for further impaction and potential medial distraction of the distal left radial fracture as discussed above. No definite callus formation. Ulnar styloid fracture again evident. Further clinical correlation is advised.
[2017-05-03] MEDS: Pantoprazole 40 mg EC Tab PO SCH (08:42)
[2017-05-03] MEDS: Metoprolol Succinate 25 mg XL Tab PO SCH (08:42)
[2017-05-03] MEDS: Enoxaparin 40 mg Syringe SC SCH (08:44)
[2017-05-03] MEDS: Morphine 30 mg SR Tab PO SCH ×2 (08:50→21:20)
--- NOTE | 2017-05-03 14:28 | CP.PCM.PN ---
Addendum entered and electronically signed by Jan Anne MD 05/03/17 16 :31: -Our team was reported by nurse that orthopedics scheduled patient for L radial fracture surgical repair on , 05/05/17. -Today's Duplex US of b/l lower extremities showed NO evidence of DVT. -CBC, CMP, coagulation profile, type and screen and EKG were ordered for tomorrow 05/04/17. Original Note: Subjective - Date & Time of Evaluation Date of Evaluation: 05/03/17 Time of Evaluation: 09:35 - Subjective Subjective: 71 y/o F evaluated and examined by bedside. Pt complains of left lower leg pain than aggravated yesterday, pain begins in 2nd toe and radiates to dorsum and plantar area of L foot. Pt will go for bilateral LE venous duplex US. Pt still complains of left foot itchiness. No acute events overnight. Pt denies headache , fever, chills, CP, SOB, wheezing or abdominal pain. Objective - Vital Signs/Intake and Output Vital Signs (last 24 hours): Temp Pulse Resp BP Pulse Ox 97.9 F 60 20 126/59 L 98 05/03/17 08:03 05/03/17 08:44 05/03/17 08:03 05/03/17 08:44 05/03/17 08:03 - Medications Medications: Current Medications Acetaminophen (Tylenol 325mg Tab) 650 mg PO Q4 PRN PRN Reason: Fever of 100.6 F and Above Acetaminophen (Tylenol 325mg Tab) 650 mg PO Q4 PRN PRN Reason: Pain, Mild (1-3) Last Admin: 04/30/17 06:34 Dose: 650 mg Aspirin (Aspirin Chewable) 81 mg PO DAILY [facility] Last Admin: 05/03/17 08:42 Dose: 81 mg Atorvastatin Calcium (Lipitor) 40 mg PO HS [facility] Last Admin: 05/02/17 21:44 Dose: 40 mg Clotrimazole (Lotrimin Af 1%) 1 applic TOP BID [facility] Last Admin: 05/02/17 16:31 Dose: 1 unit Dextrose (Dextrose 50% Inj) 0 ml IV STAT PRN; Protocol PRN Reason: Hypoglycemia Protocol Dextrose (Glutose 15) 0 gm PO ONCE PRN; Protocol PRN Reason: Hypoglycemia Protocol Docusate Sodium (Colace) 100 mg PO BID [facility] Last Admin: 05/03/17 08:42 Dose: 100 mg Enoxaparin Sodium (Lovenox) 40 mg SC DAILY [facility] PRN Reason: Protocol Last Admin: 05/03/17 08:44 Dose: 40 mg Ferrous Sulfate (Feosol) 325 mg PO DAILY [facility] Last Admin: 05/03/17 08:41 Dose: 325 mg Glucagon (Glucagen Diagnostic Kit) 0 mg IM STAT PRN; Protocol PRN Reason: Hypoglycemia Protocol Hydrocortisone (Hydrocortisone 2.5%) 1 applic TOP BID [facility] Last Admin: 05/02/17 16:30 Dose: 1 applic Insulin Human Lispro (Humalog) 0 units SC ACHS [facility] PRN Reason: Protocol Last Admin: 05/03/17 07:45 Dose: Not Given Lactic Acid (Lac-Hydrin 12% Lotion (225 G)) 1 applic TOP TID [facility] Last Admin: 05/03/17 08:43 Dose: 1 unit Lisinopril (Zestril) 40 mg PO DAILY [facility] Last Admin: 05/03/17 08:44 Dose: 40 mg Metoprolol Succinate (Toprol Xl) 25 mg PO DAILY [facility] Last Admin: 05/03/17 08:42 Dose: 25 mg Montelukast Sodium (Singulair) 10 mg PO HS [facility] Last Admin: 05/02/17 21:44 Dose: 10 mg Morphine Sulfate (Morphine Extended Release Tab) 30 mg PO Q12 [facility] Last Admin: 05/03/17 08:50 Dose: 30 mg Oxycodone/Acetaminophen (Percocet 5/325 Mg Tab) 1 tab PO Q12 PRN PRN Reason: Pain, moderate (4-7) Stop: 05/03/17 21:01 Last Admin: 05/02/17 03:41 Dose: 1 tab Pantoprazole Sodium (Protonix Ec Tab) 40 mg PO DAILY [facility] Last Admin: 05/03/17 08:42 Dose: 40 mg Zolpidem Tartrate (Ambien) 5 mg PO HS [facility] Last Admin: 05/02/17 22:32 Dose: 5 mg - Labs Labs: 05/03/17 05:30 05/03/17 05:30 - Constitutional Appears: Well, No Acute Distress - Head Exam Head Exam: ATRAUMATIC, NORMAL INSPECTION - Eye Exam Eye Exam: EOMI, Normal appearance - ENT Exam ENT Exam: Mucous Membranes Moist - Neck Exam Neck Exam: Full ROM - Respiratory Exam Respiratory Exam: Clear to Ausculation Bilateral, NORMAL BREATHING PATTERN - Cardiovascular Exam Cardiovascular Exam: REGULAR RHYTHM, +S1, +S2 - Extremities Exam Extremities Exam: Normal Inspection Additional comments: Left upper extremity on cast, clean dry and intact. - Neurological Exam Neurological Exam: Alert, Awake, Oriented x3 Assessment and Plan - Assessment and Plan (Free Text) Plan: 71 y/o woman with PMH of NSTEMI 04/23/2016, chronic sacral decubitus ulcer, right fibular fracture (01/16/17), osteoporosis, DM II, HTN, asthma, hypercholesterolemia, diverticulitis s/p Erinn's procedure w/ colostomy, HLD , CVA with right sided deficits, peripheral neuropathy, depression, anxiety, displaced fracture of left distal radius is admitted to TCU from [facility] [place] for PT/OT. 1) Left wrist fracture - left wrist in cast - B/L wrist xray 04/25/17: Left distracted intra-articular fracture of distal radius from 04/03/17 fall. Right wrist shows chronic degenerative diseases - Venous duplex study showed evidence phlebitis of the right basilic vein, no evidence of DVT - ortho consulted, xray of LUE performed yesterday. - Ortho team contacted (DANNY Dalton), no answer. Need recommendations for LUE fracture care if discharged and to document if surgery is necessary. - Continue tylenol and morphine ER BID 2) Left lower leg pain - Bilateral LE Venous Duplex US ordered. - F/U results. - Continue with physical therapy. 3) Right fibular fracture - Stable - Foot/ankle XR 04/15/2017: fracture of right malleolus/distal fibula at intermediate stage of healing, no acute fracture/dislocation. Diffuse osteopenia suggestive for osteoporosis - podiatry consulted, PT/OT in TCU - tylenol and morphine for pain 4) HTN - controlled - Lisinopril 40 mg PO daily [facility] - Cont to monitor 5) NSTEMI - stable - elevated troponin 04/23/2017 - Echo 04/23/2017: LVEF greater than 70%, LV diastolic function is abnormal. no regional wall motion abnormalities. RV normal size. RV systolic function normal. LA normal size. Trace to mild tricuspid regurgitation - asa 81 mg PO daily - atorvastatin 40 mg PO daily - metoprolol succinate 25 mg PO daily 6) Elevated Procalcitonin - elevated 63.23 on 04/24/17 - unknown source of infection, pt afebrile - ID consulted. - Vancomycin completed 7 days yesterday 05/02/17, discontinued. 7) Stage 4 sacral decubitus ulcer - chronic, stable - Continue wound care management - Bed position change Q2H 8) Diabetes - stable - A1c 6.0 on 04/23/17 - insulin lispro correction scale - hypoglycemic protocol 9) Anemia, Normocytic - stable - hx of microcytic anemia - H/H 9.9/31.3 HCV 82.8 - no acute source of bleeding - continue FeSO4 325 mg PO daily 10) Depression, Anxiety - recent hospitalization in [facility] for AMS, serotonin syndrome - psychiatry consulted, hold psych meds. 11) Pruritus of L feet -likely 2/2 to dry skin vs fungal infection -clotrimazole 1% -ammonium lactate -hydrocortisone 1% cream 12) Constipation -resolved -continue colace BID 13) Prophylaxis - lovenox - protonix 40mg PO daily - Bed position change q2h - wound care
--- NOTE | 2017-05-03 15:05 | CP.PCM.PN ---
Subjective - Date & Time of Evaluation Date of Evaluation: 05/01/17 Time of Evaluation: 09:00 - Subjective Subjective: NO ACUTE COMPLAINTS AT PRESENT Objective - Vital Signs/Intake and Output Vital Signs (last 24 hours): Temp Pulse Resp BP Pulse Ox 97.9 F 60 20 126/59 L 98 05/03/17 08:03 05/03/17 08:44 05/03/17 08:03 05/03/17 08:44 05/03/17 08:03 - Medications Medications: Current Medications Acetaminophen (Tylenol 325mg Tab) 650 mg PO Q4 PRN PRN Reason: Fever of 100.6 F and Above Acetaminophen (Tylenol 325mg Tab) 650 mg PO Q4 PRN PRN Reason: Pain, Mild (1-3) Last Admin: 04/30/17 06:34 Dose: 650 mg Aspirin (Aspirin Chewable) 81 mg PO DAILY [facility] Last Admin: 05/03/17 08:42 Dose: 81 mg Atorvastatin Calcium (Lipitor) 40 mg PO HS [facility] Last Admin: 05/02/17 21:44 Dose: 40 mg Clotrimazole (Lotrimin Af 1%) 1 applic TOP BID [facility] Last Admin: 05/02/17 16:31 Dose: 1 unit Dextrose (Dextrose 50% Inj) 0 ml IV STAT PRN; Protocol PRN Reason: Hypoglycemia Protocol Dextrose (Glutose 15) 0 gm PO ONCE PRN; Protocol PRN Reason: Hypoglycemia Protocol Docusate Sodium (Colace) 100 mg PO BID [facility] Last Admin: 05/03/17 08:42 Dose: 100 mg Enoxaparin Sodium (Lovenox) 40 mg SC DAILY [facility] PRN Reason: Protocol Last Admin: 05/03/17 08:44 Dose: 40 mg Ferrous Sulfate (Feosol) 325 mg PO DAILY [facility] Last Admin: 05/03/17 08:41 Dose: 325 mg Glucagon (Glucagen Diagnostic Kit) 0 mg IM STAT PRN; Protocol PRN Reason: Hypoglycemia Protocol Hydrocortisone (Hydrocortisone 2.5%) 1 applic TOP BID [facility] Last Admin: 05/02/17 16:30 Dose: 1 applic Insulin Human Lispro (Humalog) 0 units SC ACHS [facility] PRN Reason: Protocol Last Admin: 05/03/17 07:45 Dose: Not Given Lactic Acid (Lac-Hydrin 12% Lotion (225 G)) 1 applic TOP TID [facility] Last Admin: 05/03/17 08:43 Dose: 1 unit Lisinopril (Zestril) 40 mg PO DAILY [facility] Last Admin: 05/03/17 08:44 Dose: 40 mg Metoprolol Succinate (Toprol Xl) 25 mg PO DAILY [facility] Last Admin: 05/03/17 08:42 Dose: 25 mg Montelukast Sodium (Singulair) 10 mg PO [facility] Last Admin: 05/02/17 21:44 Dose: 10 mg Morphine Sulfate (Morphine Extended Release Tab) 30 mg PO Q12 [facility] Last Admin: 05/03/17 08:50 Dose: 30 mg Oxycodone/Acetaminophen (Percocet 5/325 Mg Tab) 1 tab PO Q12 PRN PRN Reason: Pain, moderate (4-7) Stop: 05/03/17 21:01 Last Admin: 05/02/17 03:41 Dose: 1 tab Pantoprazole Sodium (Protonix Ec Tab) 40 mg PO DAILY [facility] Last Admin: 05/03/17 08:42 Dose: 40 mg Zolpidem Tartrate (Ambien) 5 mg PO [facility] Last Admin: 05/02/17 22:32 Dose: 5 mg - Labs Labs: 05/03/17 05:30 05/03/17 05:30 - Head Exam Head Exam: ATRAUMATIC, NORMAL INSPECTION, NORMOCEPHALIC - Eye Exam Eye Exam: EOMI, Normal appearance, PERRL Pupil Exam: NORMAL ACCOMODATION - ENT Exam ENT Exam: Mucous Membranes Moist, Normal Exam - Neck Exam Neck Exam: Full ROM, Normal Inspection - Respiratory Exam Respiratory Exam: NORMAL BREATHING PATTERN - Cardiovascular Exam Cardiovascular Exam: REGULAR RHYTHM - GI/Abdominal Exam GI & Abdominal Exam: Soft, Normal Bowel Sounds - Rectal Exam Rectal Exam: NORMAL INSPECTION - Exam External exam: NORMAL EXTERNAL EXAM - Extremities Exam Extremities Exam: Full ROM, Normal Capillary Refill - Back Exam Back Exam: NORMAL INSPECTION - Neurological Exam Neurological Exam: Alert, Awake Neuro motor strength exam: Left Upper Extremity: 2/1, Right Upper Extremity: 3, Left Lower Extremity: 3, Right Lower Extremity: 3 - Psychiatric Exam Psychiatric exam: Normal Affect, Normal Mood - Skin Skin Exam: Dry, Intact Assessment and Plan (1) Abdominal pain Status: Acute (2) Advance care planning Status: Acute (3) Altered mental status Status: Acute (4) CVA (cerebral vascular accident) Assessment & Plan: PLAN FO RPHYSICAL, OCCUPATIONAL THRAPY FOR ROM, STRENGHTENING TRANSFERS AND GAIT TRAINING Status: Acute (5) Calf pain Status: Acute (6) Closed fracture of left distal radius Status: Acute (7) DVT prophylaxis Status: Acute (8) Displaced fracture of left ulna styloid process, initial encounter for closed fracture Status: Acute
--- NOTE | 2017-05-03 15:16 | CP.PCM.PN ---
Subjective - Date & Time of Evaluation Date of Evaluation: 05/03/17 Time of Evaluation: 14:30 - Subjective Subjective: PATINET WITH MILD DISCOMFORT IN THE LEG ARM BUT NO ACUTE PAIN Objective - Vital Signs/Intake and Output Vital Signs (last 24 hours): Temp Pulse Resp BP Pulse Ox 97.9 F 60 20 126/59 L 98 05/03/17 08:03 05/03/17 08:44 05/03/17 08:03 05/03/17 08:44 05/03/17 08:03 - Medications Medications: Current Medications Acetaminophen (Tylenol 325mg Tab) 650 mg PO Q4 PRN PRN Reason: Fever of 100.6 F and Above Acetaminophen (Tylenol 325mg Tab) 650 mg PO Q4 PRN PRN Reason: Pain, Mild (1-3) Last Admin: 04/30/17 06:34 Dose: 650 mg Aspirin (Aspirin Chewable) 81 mg PO DAILY [facility] Last Admin: 05/03/17 08:42 Dose: 81 mg Atorvastatin Calcium (Lipitor) 40 mg PO HS [facility] Last Admin: 05/02/17 21:44 Dose: 40 mg Clotrimazole (Lotrimin Af 1%) 1 applic TOP BID [facility] Last Admin: 05/02/17 16:31 Dose: 1 unit Dextrose (Dextrose 50% Inj) 0 ml IV STAT PRN; Protocol PRN Reason: Hypoglycemia Protocol Dextrose (Glutose 15) 0 gm PO ONCE PRN; Protocol PRN Reason: Hypoglycemia Protocol Docusate Sodium (Colace) 100 mg PO BID [facility] Last Admin: 05/03/17 08:42 Dose: 100 mg Enoxaparin Sodium (Lovenox) 40 mg SC DAILY [facility] PRN Reason: Protocol Last Admin: 05/03/17 08:44 Dose: 40 mg Ferrous Sulfate (Feosol) 325 mg PO DAILY [facility] Last Admin: 05/03/17 08:41 Dose: 325 mg Glucagon (Glucagen Diagnostic Kit) 0 mg IM STAT PRN; Protocol PRN Reason: Hypoglycemia Protocol Hydrocortisone (Hydrocortisone 2.5%) 1 applic TOP BID [facility] Last Admin: 05/02/17 16:30 Dose: 1 applic Insulin Human Lispro (Humalog) 0 units SC ACHS [facility] PRN Reason: Protocol Last Admin: 05/03/17 07:45 Dose: Not Given Lactic Acid (Lac-Hydrin 12% Lotion (225 G)) 1 applic TOP TID [facility] Last Admin: 05/03/17 08:43 Dose: 1 unit Lisinopril (Zestril) 40 mg PO DAILY [facility] Last Admin: 05/03/17 08:44 Dose: 40 mg Metoprolol Succinate (Toprol Xl) 25 mg PO DAILY [facility] Last Admin: 05/03/17 08:42 Dose: 25 mg Montelukast Sodium (Singulair) 10 mg PO [facility] Last Admin: 05/02/17 21:44 Dose: 10 mg Morphine Sulfate (Morphine Extended Release Tab) 30 mg PO Q12 [facility] Last Admin: 05/03/17 08:50 Dose: 30 mg Oxycodone/Acetaminophen (Percocet 5/325 Mg Tab) 1 tab PO Q12 PRN PRN Reason: Pain, moderate (4-7) Stop: 05/03/17 21:01 Last Admin: 05/02/17 03:41 Dose: 1 tab Pantoprazole Sodium (Protonix Ec Tab) 40 mg PO DAILY [facility] Last Admin: 05/03/17 08:42 Dose: 40 mg Zolpidem Tartrate (Ambien) 5 mg PO [facility] Last Admin: 05/02/17 22:32 Dose: 5 mg - Labs Labs: 05/03/17 05:30 05/03/17 05:30 - Head Exam Head Exam: ATRAUMATIC, NORMAL INSPECTION, NORMOCEPHALIC - Eye Exam Eye Exam: EOMI, Normal appearance, PERRL Pupil Exam: NORMAL ACCOMODATION - ENT Exam ENT Exam: Mucous Membranes Moist, Normal Exam - Neck Exam Neck Exam: Normal Inspection - Respiratory Exam Respiratory Exam: NORMAL BREATHING PATTERN - Cardiovascular Exam Cardiovascular Exam: REGULAR RHYTHM - GI/Abdominal Exam GI & Abdominal Exam: Soft, Normal Bowel Sounds - Rectal Exam Rectal Exam: NORMAL INSPECTION - Exam External exam: NORMAL EXTERNAL EXAM - Extremities Exam Extremities Exam: Full ROM, Normal Capillary Refill - Back Exam Back Exam: NORMAL INSPECTION - Neurological Exam Neurological Exam: Alert, Awake, CN II-XII Intact Neuro motor strength exam: Left Upper Extremity: 2/1, Right Upper Extremity: 3, Left Lower Extremity: 3, Right Lower Extremity: 3 - Psychiatric Exam Psychiatric exam: Normal Affect, Normal Mood - Skin Skin Exam: Dry, Intact, Normal Color Assessment and Plan (1) Abdominal pain Status: Acute (2) Advance care planning Status: Acute (3) Altered mental status Status: Acute (4) CVA (cerebral vascular accident) Status: Acute (5) Calf pain Status: Acute (6) Closed fracture of left distal radius Assessment & Plan: ORTHOPEDIC FOLLOW UP REGARDING ANY ANY ADDITIONAL PRECAUTIONS . pODIARY FOR LE FRACTURE PLAN FOR PHYSICAL, OCCUPATIONAL THERAPY FOR ROM, STRENGHTENIGN TRANSFERS AND GAIT TRAINING EQUIPMENT EVAL Status: Acute (7) DVT prophylaxis Status: Acute (8) Displaced fracture of left ulna styloid process, initial encounter for closed fracture Status: Acute
[2017-05-04 06:24] LABS: HEMOGLOBIN 8.7 g/dL (12.0-16.0); MEAN CELL VOLUME 84.2 fl (81.0-99.0); MEAN CORPUSCULAR HEMOGLOBIN 26.7 pg (27.0-31.0); MEAN CORPUSCULAR HGB CONC 31.7 g/dL (33.0-37.0); RBC 3.25 Mil/uL (3.80-5.20); RED CELL DISTRIBUTION WIDTH 18.1 % (11.5-14.5); WHITE BLOOD COUNT 4.4 K/uL (4.8-10.8)
[2017-05-04 06:30] LABS: PARTIAL THROMBOPLASTIN TIME 30.5 Seconds (25.6-37.1); PROTHROMBIN TIME 11.3 Seconds (9.8-13.1)
[2017-05-04 06:33] LABS: ALBUMIN 2.8 g/dL (3.5-5.0)
[2017-05-04] MEDS: Insulin Lispro (humaLOG) 100 Units/ml Inj SC SCH ×4 (06:42→21:10)
--- NOTE | 2017-05-04 07:29 | CP.PCM.PN ---
Subjective - Date & Time of Evaluation Date of Evaluation: 05/04/17 Time of Evaluation: 07:25 - Subjective Subjective: 71 y/o F evaluated and examined by bedside. Pt found sleeping, feeling OK, lower leg pain is mild. No acute events overnight. -After scheduling conflicts, pt is finally scheduled to have surgical repair of her L radial fracture on tomorrow May 05, 2017. Cast placed on L arm, pt unable to use, bear weight or move her left arm. -Pt with decreased strength and motor capability of her right side due to a PMHx of stroke that affected her right side of body. -From 04/15/17, note written by Dr Akbar and Yanira Knight E: "-R ankle XR reviewed: fracture of right lateral malleolus/distal fibula at an intermediate stage of healing. Negative for acute fracture. No dislocation identified. Patient may discontinue use of CAM walker and WBAT in regular supportive shoe." - Pt is not able to bear weight on his right foot without pain. Pt clearly not able to continue most of his daily activities in her current status. - Property Analyst, Dr Loya, was contacted for a consult in order to clear pt for surgery. Dr Loya will examine patient later today. Objective - Vital Signs/Intake and Output Vital Signs (last 24 hours): Temp Pulse Resp BP Pulse Ox 97.1 F L 63 20 103/54 L 99 05/03/17 19:44 05/03/17 19:44 05/03/17 19:44 05/03/17 19:44 05/03/17 19:44 - Medications Medications: Current Medications Acetaminophen (Tylenol 325mg Tab) 650 mg PO Q4 PRN PRN Reason: Fever of 100.6 F and Above Acetaminophen (Tylenol 325mg Tab) 650 mg PO Q4 PRN PRN Reason: Pain, Mild (1-3) Last Admin: 04/30/17 06:34 Dose: 650 mg Aspirin (Aspirin Chewable) 81 mg PO DAILY [facility] Last Admin: 05/03/17 08:42 Dose: 81 mg Atorvastatin Calcium (Lipitor) 40 mg PO HS [facility] Last Admin: 05/03/17 21:20 Dose: 40 mg Clotrimazole (Lotrimin Af 1%) 1 applic TOP BID [facility] Last Admin: 05/03/17 17:00 Dose: 1 unit Dextrose (Dextrose 50% Inj) 0 ml IV STAT PRN; Protocol PRN Reason: Hypoglycemia Protocol Dextrose (Glutose 15) 0 gm PO ONCE PRN; Protocol PRN Reason: Hypoglycemia Protocol Docusate Sodium (Colace) 100 mg PO BID [facility] Last Admin: 05/03/17 16:53 Dose: 100 mg Ferrous Sulfate (Feosol) 325 mg PO DAILY [facility] Last Admin: 05/03/17 08:41 Dose: 325 mg Glucagon (Glucagen Diagnostic Kit) 0 mg IM STAT PRN; Protocol PRN Reason: Hypoglycemia Protocol Heparin Sodium (Porcine) (Heparin) 5,000 units SC Q8 [facility] PRN Reason: Protocol Last Admin: 05/04/17 00:10 Dose: 5,000 units Hydrocortisone (Hydrocortisone 2.5%) 1 applic TOP BID [facility] Last Admin: 05/03/17 17:02 Dose: 1 applic Insulin Human Lispro (Humalog) 0 units SC ACHS [facility] PRN Reason: Protocol Last Admin: 05/04/17 06:42 Dose: Not Given Lactic Acid (Lac-Hydrin 12% Lotion (225 G)) 1 applic TOP TID [facility] Last Admin: 05/03/17 17:03 Dose: 1 unit Lisinopril (Zestril) 40 mg PO DAILY [facility] Last Admin: 05/03/17 08:44 Dose: 40 mg Metoprolol Succinate (Toprol Xl) 25 mg PO DAILY [facility] Last Admin: 05/03/17 08:42 Dose: 25 mg Montelukast Sodium (Singulair) 10 mg PO HS [facility] Last Admin: 05/03/17 21:20 Dose: 10 mg Morphine Sulfate (Morphine Extended Release Tab) 30 mg PO Q12 [facility] Last Admin: 05/03/17 21:20 Dose: 30 mg Pantoprazole Sodium (Protonix Ec Tab) 40 mg PO DAILY [facility] Last Admin: 05/03/17 08:42 Dose: 40 mg Zolpidem Tartrate (Ambien) 5 mg PO HS [facility] Last Admin: 05/03/17 21:23 Dose: 5 mg - Labs Labs: 05/04/17 05:30 05/04/17 05:30 PT 11.3 Seconds (9.8-13.1) 05/04/17 05:30 INR 1.0 (0.9-1.2) 05/04/17 05:30 APTT 30.5 Seconds (25.6-37.1) 05/04/17 05:30 - Constitutional Appears: Well, No Acute Distress - Head Exam Head Exam: ATRAUMATIC, NORMAL INSPECTION - Eye Exam Eye Exam: EOMI, Normal appearance - ENT Exam ENT Exam: Mucous Membranes Moist, Normal Exam - Neck Exam Neck Exam: Full ROM - Respiratory Exam Respiratory Exam: Clear to Ausculation Bilateral, NORMAL BREATHING PATTERN - Cardiovascular Exam Cardiovascular Exam: REGULAR RHYTHM, +S1, +S2 - GI/Abdominal Exam GI & Abdominal Exam: Soft. absent: Guarding, Rigid, Tenderness Assessment and Plan - Assessment and Plan (Free Text) Plan: 71 y/o woman with PMH of NSTEMI 04/23/2016, chronic sacral decubitus ulcer, right fibular fracture (01/16/17), osteoporosis, DM II, HTN, asthma, hypercholesterolemia, diverticulitis s/p Erinn's procedure w/ colostomy, HLD , CVA with right sided deficits, peripheral neuropathy, depression, anxiety, displaced fracture of left distal radius is admitted to TCU from [facility] for PT/OT. 1) Left wrist fracture - left wrist in cast - B/L wrist xray 04/25/17: Left distracted intra-articular fracture of distal radius from 04/03/17 fall. Right wrist shows chronic degenerative diseases - Venous duplex study showed evidence phlebitis of the right basilic vein, no evidence of DVT - ortho consulted. - Surgical repair scheduled for tomorrow, May 05, 2017 at 07:45. - Continue tylenol and morphine ER BID - Cardiology consulted for Pre-op evaluation. Dr Loya will examined pt this evening previous to surgery. If NO contraindication, pt will be cleared for surgical procedure early tomorrow. 2) Left lower leg pain - Bilateral LE Venous Duplex showed NO evidence of DVT. - Continue with physical therapy. 3) Right fibular fracture - Stable - Foot/ankle XR 04/15/2017: fracture of right malleolus/distal fibula at intermediate stage of healing, no acute fracture/dislocation. Diffuse osteopenia suggestive for osteoporosis - podiatry consulted, PT/OT in TCU - tylenol and morphine for pain 4) HTN - controlled - Lisinopril 40 mg PO daily [facility] - Cont to monitor 5) NSTEMI - stable - elevated troponin 04/23/2017 - Echo 04/23/2017: LVEF greater than 70%, LV diastolic function is abnormal. no regional wall motion abnormalities. RV normal size. RV systolic function normal. LA normal size. Trace to mild tricuspid regurgitation - asa 81 mg PO daily - atorvastatin 40 mg PO daily - metoprolol succinate 25 mg PO daily 6) Elevated Procalcitonin - elevated 63.23 on 04/24/17 - unknown source of infection, pt afebrile - ID consulted. - Vancomycin completed 7 days yesterday 05/02/17, discontinued. 7) Stage 4 sacral decubitus ulcer - chronic, stable - Continue wound care management - Bed position change Q2H 8) Diabetes - stable - A1c 6.0 on 04/23/17 - insulin lispro correction scale - hypoglycemic protocol 9) Anemia, Normocytic - stable - hx of microcytic anemia - H/H 9.9/31.3 HCV 82.8 - no acute source of bleeding - continue FeSO4 325 mg PO daily 10) Depression, Anxiety - recent hospitalization in [facility] for AMS, serotonin syndrome - psychiatry consulted, hold psych meds. 11) Pruritus of L feet -likely 2/2 to dry skin vs fungal infection -clotrimazole 1% -ammonium lactate -hydrocortisone 1% cream 12) Constipation -resolved -continue colace BID 13) Prophylaxis - lovenox - protonix 40mg PO daily - Bed position change q2h - wound care
[2017-05-04] MEDS: Metoprolol Succinate 25 mg XL Tab PO SCH (08:31)
[2017-05-04] MEDS: Pantoprazole 40 mg EC Tab PO SCH (08:31)
[2017-05-04] MEDS: Morphine 30 mg SR Tab PO SCH ×2 (08:36→21:09)
--- NOTE | 2017-05-04 13:31 | CP.PCM.PN ---
Subjective - Date & Time of Evaluation Date of Evaluation: 05/04/17 Time of Evaluation: 12:00 - Subjective Subjective: no acute complaints Objective - Vital Signs/Intake and Output Vital Signs (last 24 hours): Temp Pulse Resp BP Pulse Ox 99.5 F 64 20 127/54 L 97 05/04/17 08:24 05/04/17 08:32 05/04/17 08:24 05/04/17 08:32 05/04/17 08:24 - Medications Medications: Current Medications Acetaminophen (Tylenol 325mg Tab) 650 mg PO Q4 PRN PRN Reason: Fever of 100.6 F and Above Acetaminophen (Tylenol 325mg Tab) 650 mg PO Q4 PRN PRN Reason: Pain, Mild (1-3) Last Admin: 04/30/17 06:34 Dose: 650 mg Aspirin (Aspirin Chewable) 81 mg PO DAILY [facility] Last Admin: 05/04/17 08:30 Dose: 81 mg Atorvastatin Calcium (Lipitor) 40 mg PO HS [facility] Last Admin: 05/03/17 21:20 Dose: 40 mg Clotrimazole (Lotrimin Af 1%) 1 applic TOP BID [facility] Last Admin: 05/04/17 08:31 Dose: 1 unit Dextrose (Dextrose 50% Inj) 0 ml IV STAT PRN; Protocol PRN Reason: Hypoglycemia Protocol Dextrose (Glutose 15) 0 gm PO ONCE PRN; Protocol PRN Reason: Hypoglycemia Protocol Docusate Sodium (Colace) 100 mg PO BID [facility] Last Admin: 05/04/17 08:30 Dose: 100 mg Ferrous Sulfate (Feosol) 325 mg PO DAILY [facility] Last Admin: 05/04/17 08:30 Dose: 325 mg Glucagon (Glucagen Diagnostic Kit) 0 mg IM STAT PRN; Protocol PRN Reason: Hypoglycemia Protocol Heparin Sodium (Porcine) (Heparin) 5,000 units SC Q8 [facility] PRN Reason: Protocol Last Admin: 05/04/17 08:30 Dose: 5,000 units Hydrocortisone (Hydrocortisone 2.5%) 1 applic TOP BID [facility] Last Admin: 05/04/17 08:31 Dose: 1 applic Insulin Human Lispro (Humalog) 0 units SC ACHS [facility] PRN Reason: Protocol Last Admin: 05/04/17 11:19 Dose: Not Given Lactic Acid (Lac-Hydrin 12% Lotion (225 G)) 1 applic TOP TID [facility] Last Admin: 05/04/17 13:25 Dose: 1 unit Lisinopril (Zestril) 40 mg PO DAILY [facility] Last Admin: 05/04/17 08:32 Dose: 40 mg Metoprolol Succinate (Toprol Xl) 25 mg PO DAILY [facility] Last Admin: 05/04/17 08:31 Dose: 25 mg Montelukast Sodium (Singulair) 10 mg PO HS [facility] Last Admin: 05/03/17 21:20 Dose: 10 mg Morphine Sulfate (Morphine Extended Release Tab) 30 mg PO Q12 [facility] Last Admin: 05/04/17 08:36 Dose: 30 mg Pantoprazole Sodium (Protonix Ec Tab) 40 mg PO DAILY [facility] Last Admin: 05/04/17 08:31 Dose: 40 mg Zolpidem Tartrate (Ambien) 5 mg PO [facility] Last Admin: 05/03/17 21:23 Dose: 5 mg - Labs Labs: 05/04/17 05:30 05/04/17 05:30 PT 11.3 Seconds (9.8-13.1) 05/04/17 05:30 INR 1.0 (0.9-1.2) 05/04/17 05:30 APTT 30.5 Seconds (25.6-37.1) 05/04/17 05:30 - Head Exam Head Exam: ATRAUMATIC, NORMAL INSPECTION, NORMOCEPHALIC - Eye Exam Eye Exam: EOMI, Normal appearance, PERRL Pupil Exam: NORMAL ACCOMODATION - ENT Exam ENT Exam: Mucous Membranes Moist, Normal Exam - Neck Exam Neck Exam: Normal Inspection - Respiratory Exam Respiratory Exam: NORMAL BREATHING PATTERN - Cardiovascular Exam Cardiovascular Exam: REGULAR RHYTHM - GI/Abdominal Exam GI & Abdominal Exam: Soft, Normal Bowel Sounds - Rectal Exam Rectal Exam: NORMAL INSPECTION - Exam External exam: NORMAL EXTERNAL EXAM - Extremities Exam Extremities Exam: Full ROM, Normal Capillary Refill, Normal Inspection - Back Exam Back Exam: NORMAL INSPECTION - Neurological Exam Neurological Exam: Alert, Awake Neuro motor strength exam: Left Upper Extremity: 2/1 (cast), Right Upper Extremity: 4, Left Lower Extremity: 3, Right Lower Extremity: 4 - Psychiatric Exam Psychiatric exam: Normal Affect, Normal Mood - Skin Skin Exam: Dry, Intact Assessment and Plan (1) Abdominal pain Status: Acute (2) Advance care planning Status: Acute (3) Altered mental status Status: Acute (4) CVA (cerebral vascular accident) Assessment & Plan: plan for pt, ot therapy ortho and podiatry followup continue with therapy Status: Acute (5) Calf pain Status: Acute (6) Closed fracture of left distal radius Status: Acute (7) DVT prophylaxis Status: Acute (8) Displaced fracture of left ulna styloid process, initial encounter for closed fracture Status: Acute
--- NOTE | 2017-05-04 13:42 | CP.PCM.PN ---
Subjective - Date & Time of Evaluation Date of Evaluation: 05/04/17 Time of Evaluation: 13:40 - Subjective Subjective: Patient still complaining of wristw pain and tingling in fingers. Objective - Vital Signs/Intake and Output Vital Signs (last 24 hours): Temp Pulse Resp BP Pulse Ox 99.5 F 64 20 127/54 L 97 05/04/17 08:24 05/04/17 08:32 05/04/17 08:24 05/04/17 08:32 05/04/17 08:24 - Medications Medications: Current Medications Acetaminophen (Tylenol 325mg Tab) 650 mg PO Q4 PRN PRN Reason: Fever of 100.6 F and Above Acetaminophen (Tylenol 325mg Tab) 650 mg PO Q4 PRN PRN Reason: Pain, Mild (1-3) Last Admin: 04/30/17 06:34 Dose: 650 mg Aspirin (Aspirin Chewable) 81 mg PO DAILY [facility] Last Admin: 05/04/17 08:30 Dose: 81 mg Atorvastatin Calcium (Lipitor) 40 mg PO HS [facility] Last Admin: 05/03/17 21:20 Dose: 40 mg Clotrimazole (Lotrimin Af 1%) 1 applic TOP BID [facility] Last Admin: 05/04/17 08:31 Dose: 1 unit Dextrose (Dextrose 50% Inj) 0 ml IV STAT PRN; Protocol PRN Reason: Hypoglycemia Protocol Dextrose (Glutose 15) 0 gm PO ONCE PRN; Protocol PRN Reason: Hypoglycemia Protocol Docusate Sodium (Colace) 100 mg PO BID [facility] Last Admin: 05/04/17 08:30 Dose: 100 mg Ferrous Sulfate (Feosol) 325 mg PO DAILY [facility] Last Admin: 05/04/17 08:30 Dose: 325 mg Glucagon (Glucagen Diagnostic Kit) 0 mg IM STAT PRN; Protocol PRN Reason: Hypoglycemia Protocol Heparin Sodium (Porcine) (Heparin) 5,000 units SC Q8 [facility] PRN Reason: Protocol Last Admin: 05/04/17 08:30 Dose: 5,000 units Hydrocortisone (Hydrocortisone 2.5%) 1 applic TOP BID [facility] Last Admin: 05/04/17 08:31 Dose: 1 applic Insulin Human Lispro (Humalog) 0 units SC ACHS [facility] PRN Reason: Protocol Last Admin: 05/04/17 11:19 Dose: Not Given Lactic Acid (Lac-Hydrin 12% Lotion (225 G)) 1 applic TOP TID [facility] Last Admin: 05/04/17 13:25 Dose: 1 unit Lisinopril (Zestril) 40 mg PO DAILY [facility] Last Admin: 05/04/17 08:32 Dose: 40 mg Metoprolol Succinate (Toprol Xl) 25 mg PO DAILY [facility] Last Admin: 05/04/17 08:31 Dose: 25 mg Montelukast Sodium (Singulair) 10 mg PO HS [facility] Last Admin: 05/03/17 21:20 Dose: 10 mg Morphine Sulfate (Morphine Extended Release Tab) 30 mg PO Q12 [facility] Last Admin: 05/04/17 08:36 Dose: 30 mg Pantoprazole Sodium (Protonix Ec Tab) 40 mg PO DAILY [facility] Last Admin: 05/04/17 08:31 Dose: 40 mg Zolpidem Tartrate (Ambien) 5 mg PO HS [facility] Last Admin: 05/03/17 21:23 Dose: 5 mg - Labs Labs: 05/04/17 05:30 05/04/17 05:30 PT 11.3 Seconds (9.8-13.1) 05/04/17 05:30 INR 1.0 (0.9-1.2) 05/04/17 05:30 APTT 30.5 Seconds (25.6-37.1) 05/04/17 05:30 - Extremities Exam Additional comments: +ROM fingers, paresthesias to middle ring fingers, no change, fingers warm, cap refill < 2 sec Assessment and Plan (1) Closed fracture of left distal radius Assessment & Plan: Repeat imaging of wrist shows worsening of angulation and shortening, reviewed by Dr. Maya for ORIF on 05/10 as schedule is booked for 05/05 d//w medical team, clearance pending d/w patient at length, advised risks/ammy/alt of ORIF, agrees to surgery Attempting to call patient's daughter again at patients request, no answer d/w Dr. Maya, agrees with aobve Status: Acute (2) Displaced fracture of left ulna styloid process, initial encounter for closed fracture Status: Acute
--- NOTE | 2017-05-04 16:05 | CARD ---
APPROVED REPORT EKG Measurement Heart [id number] OK [id number] <Conclusion> Sinus bradycardia Right bundle branch block Abnormal ECG
--- NOTE | 2017-05-04 17:59 | CP.PCM.CON ---
History of Present Illness - History of Present Illness History of Present Illness: THE PATIENT IS A 71 YEAR OLD FEMALE WHO FELL EARLIER THIS MONTH AND SUSTAINED A LEFT DISTAL RADIUS FRACTURE THAT WAS PLACED IN A CAST AND CARDIOLOGY IS NOW ASKED TO SEE HER FOR CARDIAC CLEARANCE PRIOR TO SURGERY TOMORROW. SHE WAS AT [facility] AND WAS SENT TO [facility] TCU FOR REHAB. AT [facility] SHE WAS DIAGNOSED WITH A NSTEMI WITH MILDLY ELEVATED TROPONINS AND SHE WAS SEEN ON CARDIOLOGY CONSULTATION BY DR BURNHAM WHO THOUGHT SHE HAD SEROTONIN SYNDROME AND RECOMMENDED CONSERVATIVE MEDICAL THERAPY. SHE DENIES CHEST PAIN OR A PRIOR HISTORY OF CAD. 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 Past Patient History - Infectious Disease Hx of Infectious Diseases: None - Past Medical History & Family History Past Medical History?: Yes - Past Social History Smoking Status: Never Smoked - CARDIAC Hx Hypercholesterolemia: Yes Hx Hypertension: Yes - PULMONARY Hx Asthma: Yes Hx Chronic Obstructive Pulmonary Disease (COPD): No Hx Pneumonia: Yes - NEUROLOGICAL Hx Transient Ischemic Attacks (TIA): Yes - HEENT Other/Comment: GLASSES - NEARSIGHTEDNESS. - RENAL Hx Chronic Kidney Disease: No - ENDOCRINE/METABOLIC Hx Diabetes Mellitus Type 2: Yes - HEMATOLOGICAL/ONCOLOGICAL Hx AIDS: No Hx Anemia: Yes Hx Blood Transfusions: Yes Hx Human Immunodeficiency Virus (HIV): No - INTEGUMENTARY Hx Cellulitis: Yes (BLE) Other/Comment: Sacral decubiti, RIGHT HEEL (DTI) - MUSCULOSKELETAL/RHEUMATOLOGICAL Hx Falls: Yes (fx left wrist) - GASTROINTESTINAL Hx Colostomy: Yes Hx Diverticulitis: Yes (s/p Erinn procedure) - GENITOURINARY/GYNECOLOGICAL Hx Genitourinary Disorders: No Other/Comment: bladder fistula - PSYCHIATRIC Hx Anxiety: Yes Hx Substance Use: No - SURGICAL HISTORY Hx Cholecystectomy: Yes - ANESTHESIA Hx Anesthesia: Yes Hx Anesthesia Reactions: No Hx Malignant Hyperthermia: No Meds Allergies/Adverse Reactions: Allergies Allergy/AdvReac Type Severity Reaction Status Date / Time iodine Allergy RASH Verified 04/23/17 07:10 Sulfa (Sulfonamide Allergy RASH Verified 04/27/17 17:35 Antibiotics) - Medications Medications: Current Medications Acetaminophen (Tylenol 325mg Tab) 650 mg PO Q4 PRN PRN Reason: Fever of 100.6 F and Above Acetaminophen (Tylenol 325mg Tab) 650 mg PO Q4 PRN PRN Reason: Pain, Mild (1-3) Last Admin: 04/30/17 06:34 Dose: 650 mg Atorvastatin Calcium (Lipitor) 40 mg PO HS [facility] Last Admin: 05/03/17 21:20 Dose: 40 mg Clotrimazole (Lotrimin Af 1%) 1 applic TOP BID [facility] Last Admin: 05/04/17 16:30 Dose: 1 unit Dextrose (Dextrose 50% Inj) 0 ml IV STAT PRN; Protocol PRN Reason: Hypoglycemia Protocol Dextrose (Glutose 15) 0 gm PO ONCE PRN; Protocol PRN Reason: Hypoglycemia Protocol Docusate Sodium (Colace) 100 mg PO BID [facility] Last Admin: 05/04/17 16:31 Dose: 100 mg Ferrous Sulfate (Feosol) 325 mg PO DAILY [facility] Last Admin: 05/04/17 08:30 Dose: 325 mg Glucagon (Glucagen Diagnostic Kit) 0 mg IM STAT PRN; Protocol PRN Reason: Hypoglycemia Protocol Heparin Sodium (Porcine) (Heparin) 5,000 units SC Q8 [facility] PRN Reason: Protocol Last Admin: 05/04/17 16:31 Dose: 5,000 units Hydrocortisone (Hydrocortisone 2.5%) 1 applic TOP BID [facility] Last Admin: 05/04/17 16:30 Dose: 1 applic Insulin Human Lispro (Humalog) 0 units SC ACHS [facility] PRN Reason: Protocol Last Admin: 05/04/17 16:26 Dose: Not Given Lactic Acid (Lac-Hydrin 12% Lotion (225 G)) 1 applic TOP TID [facility] Last Admin: 05/04/17 16:30 Dose: 1 unit Lisinopril (Zestril) 40 mg PO DAILY [facility] Last Admin: 05/04/17 08:32 Dose: 40 mg Metoprolol Succinate (Toprol Xl) 25 mg PO DAILY [facility] Last Admin: 05/04/17 08:31 Dose: 25 mg Montelukast Sodium (Singulair) 10 mg PO HS [facility] Last Admin: 05/03/17 21:20 Dose: 10 mg Morphine Sulfate (Morphine Extended Release Tab) 30 mg PO Q12 [facility] Last Admin: 05/04/17 08:36 Dose: 30 mg Pantoprazole Sodium (Protonix Ec Tab) 40 mg PO DAILY [facility] Last Admin: 05/04/17 08:31 Dose: 40 mg Zolpidem Tartrate (Ambien) 5 mg PO HS [facility] Last Admin: 05/03/17 21:23 Dose: 5 mg Physical Exam - Respiratory Exam Respiratory Exam: Clear to Auscultation Bilateral - Cardiovascular Exam Cardiovascular Exam: REGULAR RHYTHM - Extremities Exam Additional comments: NO LE EDEMA - Additional Findings Additional findings: EKG SINUS WITH RBBB RECENT ECHO AT WITH LVEF OF 60% Results - Vital Signs Recent Vital Signs: Last Vital Signs Temp 98.2 F 05/04/17 16:03 Pulse 58 L 05/04/17 16:03 Resp 20 05/04/17 16:03 BP 108/51 L 05/04/17 16:03 Pulse Ox 99 05/04/17 16:03 - Labs Result Diagrams: 05/04/17 05:30 05/04/17 05:30 Labs: Laboratory Results - last 24 hr 05/03/17 05/04/17 05/04/17 20:57 05:30 05:30 WBC 4.4 L RBC 3.25 L Hgb 8.7 L Hct 27.4 L MCV 84.2 MCH 26.7 L MCHC 31.7 L RDW 18.1 H Plt Count 145 PT 11.3 INR 1.0 APTT 30.5 Sodium Potassium Chloride Carbon Dioxide Anion Gap BUN Creatinine Est GFR ( Amer) Est GFR (Non-Af Amer) POC Glucose (mg/dL) 148 H Random Glucose Calcium Total Bilirubin AST ALT Alkaline Phosphatase Total Protein Albumin Globulin Albumin/Globulin Ratio Blood Type Antibody Screen BBK History Checked 05/04/17 05/04/17 05:30 05:30 WBC RBC Hgb Hct MCV MCH MCHC RDW Plt Count PT INR APTT Sodium 144 Potassium 4.2 Chloride 111 H Carbon Dioxide 25 Anion Gap 12 BUN 24 H Creatinine 1.4 H Est GFR ( Amer) 45 Est GFR (Non-Af Amer) 37 POC Glucose (mg/dL) Random Glucose 125 H Calcium 9.0 Total Bilirubin 0.3 AST 14 D ALT 21 Alkaline Phosphatase 63 Total Protein 5.8 L Albumin 2.8 L Globulin 2.9 Albumin/Globulin Ratio 1.0 Blood Type B POSITIVE Antibody Screen Negative BBK History Checked Patient has bt Assessment & Plan - Assessment and Plan (Free Text) Assessment: FALL WITH RECENT LEFT DISTAL RADIUS FRACTURE HYPERTENSION HYPERLIPIDEMIA TYPE 2 DM OLD CVA ANEMIA RECENT NSTEMI THOUGHT TO BE FROM THE SEROTONIN SYNDROME-GOOD LV SYSTOLIC FUNCTION ON RECENT ECHOCARDIOGRAM Plan: THE PATIENT IS CLEARED FOR ORTHOPEDIC SURGERY FROM THE CARDIAC [facility] CONTINUE METOPROLOL, ZESTRIL, ATORVASTATIN, IRON ASPIRIN STOPPED PRIOR TO SURGERY-IT CAN BE RESTARTED AFTER SURGERY THE PATIENT WAS DISCUSSED WITH DR BURNHAM WHO THOUGHT THE PATIENT WAS LOW RISK AND COULD BE TREATED MEDICALLY AND DOESN'T NEED A CARDIAC CATH
[2017-05-04 19:57] VITALS: BP 92/53; PULSE 59; TEMP 97.9; O2SAT 94
[2017-05-05 05:07] LABS: HEMOGLOBIN 8.7 g/dL (12.0-16.0); MEAN CORPUSCULAR HEMOGLOBIN 26.6 pg (27.0-31.0); MEAN CORPUSCULAR HGB CONC 31.7 g/dL (33.0-37.0); RBC 3.28 Mil/uL (3.80-5.20); RED CELL DISTRIBUTION WIDTH 17.6 % (11.5-14.5); WHITE BLOOD COUNT 4.2 K/uL (4.8-10.8)
[2017-05-05 05:20] LABS: ALBUMIN 2.9 g/dL (3.5-5.0); CALCIUM 9.1 mg/dL (8.4-10.2)
--- NOTE | 2017-05-05 06:47 | CP.PCM.PCO ---
Physician Communication Note - Physician Communication Note Physician Communication Note: 71 y/o F has been medically optimized for proposed orthopedic procedure.
== END 2017-05-05 06:10 | disposition short-term general hospital (02) | DRG 559 ==
LOC: H.TCU 17:35
PROVIDERS: ADMIT Family Medicine Geriatric Medicine; ATTEND Family Medicine Geriatric Medicine
PROC: F07Z9FZ Gait Training/Functional Ambulation Treatment using Assistive, Adaptive, Supportive or Protective Equipment (ICD-10-PCS; principal; 2017-04-27)
PROC: F07L6FZ Therapeutic Exercise Treatment of Musculoskeletal System - Lower Back / Lower Extremity using Assistive, Adaptive, Supportive or Protective Equipment (ICD-10-PCS; 2017-04-27)
PROC: F07Z5FZ Bed Mobility Treatment using Assistive, Adaptive, Supportive or Protective Equipment (ICD-10-PCS; 2017-04-27)
DX: S52.572D Other intraarticular fracture of lower end of left radius, subsequent encounter for closed fracture with routine healing (principal); I21.4 Non-ST elevation (NSTEMI) myocardial infarction; L89.154 Pressure ulcer of sacral region, stage 4; I69.351 Hemiplegia and hemiparesis following cerebral infarction affecting right dominant side; E11.42 Type 2 diabetes mellitus with diabetic polyneuropathy; D64.9 Anemia, unspecified; I80.8 Phlebitis and thrombophlebitis of other sites; E78.00 Pure hypercholesterolemia, unspecified; E78.5 Hyperlipidemia, unspecified; Z88.2 Allergy status to sulfonamides; Z91.041 Radiographic dye allergy status; M81.0 Age-related osteoporosis without current pathological fracture; Z79.4 Long term (current) use of insulin; I10 Essential (primary) hypertension; J45.909 Unspecified asthma, uncomplicated; F32.9 Major depressive disorder, single episode, unspecified; F41.9 Anxiety disorder, unspecified; G89.29 Other chronic pain; M19.90 Unspecified osteoarthritis, unspecified site; S82.61XD Displaced fracture of lateral malleolus of right fibula, subsequent encounter for closed fracture with routine healing; S52.612D Displaced fracture of left ulna styloid process, subsequent encounter for closed fracture with routine healing; W19.XXXD Unspecified fall, subsequent encounter; Z93.3 Colostomy status; K59.00 Constipation, unspecified; R79.89 Other specified abnormal findings of blood chemistry

== ENCOUNTER 2017-05-05 06:03 | Inpatient (IN) | payer MEDICARE, MEDICAID ==
[2017-05-05 06:32] VITALS: BMI 34.2
[2017-05-05] MEDS ORDERED: Lactated Ringer's 1,000 ML IV ONE (07:00)
[2017-05-05] MEDS ORDERED: Propofol 10 mg/ml Inj (20 ML) ONE (07:20)
[2017-05-05] MEDS ORDERED: Succinylcholine 200 mg/10 ml Inj IV ONE (07:21)
[2017-05-05] MEDS ORDERED: Rocuronium 10 mg/ml (5 ml) ONE (07:21)
[2017-05-05] MEDS ORDERED: ePHEDrine 50 mg/ml Inj ONE (07:21)
[2017-05-05] MEDS ORDERED: Midazolam 2 MG/2 ML VIAL ONE (07:21)
[2017-05-05] MEDS ORDERED: Ropivacaine 0.5% 30ML IV ONE (08:10)
[2017-05-05] MEDS ORDERED: ceFAZolin IV 1 gm in Dextrose 2 GM/100 ML BAG IVPB ONE (08:39)
[2017-05-05] MEDS ORDERED: Neostigmine Methylsulfate 2 MG/2 ML ML IV ONE ×2 (09:25→09:30)
[2017-05-05] MEDS ORDERED: Dexamethasone 4 mg/1 ml IVP PRN (10:21)
--- NOTE | 2017-05-05 10:32 | PCM.ANESB4 ---
Infraclavicular Block - Femoral Nerve Block Date of Procedure: 05/05/17 Procedure Performed: Brachial Plexus at the Infraclavicular area Left - Procedure Infraclavicular Block: The procedure was explained to the patient that it is for the post-operative pain management. Consent was obtained after a thorough discussion with the patient regarding the benefits and possible complications of local anesthetic block of the brachial plexus at the infraclavicular area. The patient's head was gently rotated away from the operative ___left shoulder and the area medial to the coracoid process and inferior to the clavicle was carefully palpated. The ultrasound transducer was then applied to the skin in the transverse plane and the brachial plexus was visualized surrounding the axillary artery and deep to the pectoralis major and minor muscles. After thorough identification, this area was prepped with chloroprep solution. At this point, a #21 gauge Stimuplex 4-inch needle was inserted cephalad to the ultrasound transducer and inferior to the clavicle in-plane towards the posterior aspect of the axillary artery. Needle advancement was performed carefully under ultrasound visualization. Nerve stimulator was used and twitch of the affected extremity including fingers, hand, wrist and elbow was obtained at current of __0.3___MA. After repeated negative aspiration, __5___cc of __0.5_ __% ____ropivacaine was injected and this was followed with ___25 ___ cc of ____0.5___ % __ropivacaine . Under ultrasound guidance the local anesthetics were observed surrounding the cords of the brachial plexus. The needle was removed intact and sterile dressing was applied. The patient had stable vital signs, was conscious and in no apparent distress. The patient tolerated the infraclavicular block of the brachial plexus well with sno signs of LAST.
[2017-05-05] MEDS ORDERED: Oxycodone/Acetaminophen 5/325 mg Tab PO PRN (11:53)
[2017-05-05] MEDS: Sodium Chloride 0.9% 1,000 ML IV SCH ×2 (14:49→15:00)
--- NOTE | 2017-05-05 16:48 | CP.PCM.HP ---
History of Present Illness - History of Present Illness History of Present Illness: 71 y/o woman with PMH of NSTEMI 04/23/2016, chronic sacral decubitus ulcer, osteoporosis, DM II, HTN, asthma, hypercholesterolemia, diverticulitis s/p Erinn's procedure w/ colostomy, HLD, CVA with right sided deficits, peripheral neuropathy, depression, anxiety, chronic sacral decubitus ulcer and recent right fibular fracture (01/16/17) admitted for evaluation and management of recovery after surgical repair of displaced fracture of left distal radius. Patient currently has no complaints. Left arm is in a cast. -Pt is at risk fo falls due to her status of s/p right sided stroke. Pt fractured her left wrist after a fall. -Pt was discharged from TCU yesterday where pt finished antibiotic therapy for suspected pneumonia and sepsis, and received physical therapy for recovery of her right distal tibial fracture. Patient has immobilizer boot for right ankle. -Patient denies headaches, dizziness, chest pain, SOB, abdominal pain, nausea, vomiting, diarrhea, dysuria, or fever. [facility] PMHx: chronic sacral decubitus ulcer, right fibular fracture (01/16/17), right fibula fracture, osteoporosis, anemia, arthritis, IDDM now controlled with diet , HTN, asthma, hypercholesterolemia, diverticulitis s/p Erinn's procedure, HLD, CVA with right sided deficits, chronic back pain, peripheral neuropathy, depression, anxiety meds: see medlist SurgHx: spinal surgery, Hartmanns' procedure (rectosigmoid colon resection with colostomy), multiple colostomies, cholecystectomy, hysterectomy, sacral wound debridement 06/10/2016 FMHx: mother secondary to diabetes complications, father was estranged SocHx: Denies smoking, alcohol, or drugs, has 1 daughter Present on Admission - Present on Admission Any Indicators Present on Admission: Yes History of DVT/PE: No History of Uncontrolled Diabetes: No Decubitus Ulcer Present: Yes Decubitus Ulcer Location: Sacral decubitus. Decubitus Ulcer Stage: IV Review of Systems - Constitutional Constitutional: absent: Anorexia, Chills - EENT Eyes: absent: Discharge, Itchy Eyes, Pain, Photophobia Nose/Mouth/Throat: absent: Epistaxis, Dental Pain, Dysphagia - Cardiovascular Cardiovascular: absent: Chest Pain, Palpitations - Respiratory Respiratory: absent: Hemoptysis, Wheezing, Stridor, Pain on Inspiration - Gastrointestinal Gastrointestinal: absent: Abdominal Pain, Bloating, Change in Bowel Habits, Change in Stool Character - Genitourinary Genitourinary: absent: Dysuria, Hematuria, Urinary Frequency, Urinary Urgency - Musculoskeletal Musculoskeletal: As Per HPI - Neurological Neurological: absent: Confusion, Headaches Past Patient History - Infectious Disease Hx of Infectious Diseases: None - Past Medical History & Family History Past Medical History?: Yes - Past Social History Smoking Status: Never Smoked - CARDIAC Hx Cardiac Disorders: Yes Hx Congestive Heart Failure: No Hx Hypercholesterolemia: Yes Hx Hypertension: Yes - PULMONARY Hx Respiratory Disorders: Yes Hx Asthma: Yes Hx Chronic Obstructive Pulmonary Disease (COPD): No Hx Pneumonia: Yes - NEUROLOGICAL Hx Neurological Disorder: Yes HX Cerebrovascular Accident: Yes Hx Transient Ischemic Attacks (TIA): Yes Other/Comment: cerebral infarction - HEENT Hx HEENT Problems: No Other/Comment: GLASSES - NEARSIGHTEDNESS. - RENAL Hx Chronic Kidney Disease: No Hx Renal Failure: No - ENDOCRINE/METABOLIC Hx Endocrine Disorders: Yes Hx Diabetes Mellitus Type 1: No Hx Diabetes Mellitus Type 2: Yes Hx Hypothyroidism: No - HEMATOLOGICAL/ONCOLOGICAL Hx Blood Disorders: Yes (Anemia) Hx AIDS: No Hx Anemia: Yes Hx Blood Transfusions: Yes Hx Blood Transfusion Reaction: No Hx Hepatitis A: Yes (WHEN PATIENT WAS IN 2ND GRADE.) Hx Human Immunodeficiency Virus (HIV): No - INTEGUMENTARY Hx Dermatological Problems: No Hx Cellulitis: Yes (BLE) Other/Comment: Sacral decubiti, RIGHT HEEL (DTI) - MUSCULOSKELETAL/RHEUMATOLOGICAL Hx Musculoskeletal Disorders: Yes (Back surgery) Hx Arthritis: Yes Hx Back Pain: Yes Hx Degenerative Joint Disease: Yes Hx Falls: Yes (fx left wrist) Hx Fractures: Yes Hx Rheumatoid Arthritis: No Hx Unsteady Gait: Yes - GASTROINTESTINAL Hx Gastrointestinal Disorders: Yes Hx Bowel Surgery: Yes Hx Colostomy: Yes Hx Diverticulitis: Yes (s/p Erinn procedure) Hx Irritable Bowel: Yes Other/Comment: Bladder and colon fistula - GENITOURINARY/GYNECOLOGICAL Hx Genitourinary Disorders: No Other/Comment: bladder fistula - PSYCHIATRIC Hx Psychophysiologic Disorder: Yes Hx Anxiety: Yes Hx Depression: Yes Hx Emotional Abuse: No Hx Physical Abuse: No Hx Substance Use: No - SURGICAL HISTORY Hx Surgeries: Yes Hx Cholecystectomy: Yes Hx Hysterectomy: Yes Hx Orthopedic Surgery: Yes (Back Sx) Other/Comment: spinal fusion. colostomy - ANESTHESIA Hx Anesthesia: Yes Hx Anesthesia Reactions: No Hx Malignant Hyperthermia: No Has any member of the family had a problem w/ anesthesia?: No Meds Allergies/Adverse Reactions: Allergies Allergy/AdvReac Type Severity Reaction Status Date / Time iodine Allergy RASH Verified 04/23/17 07:10 Sulfa (Sulfonamide Allergy RASH Verified 04/27/17 17:35 Antibiotics) Physical Exam - Constitutional Appears: Well, Non-toxic, No Acute Distress - Head Exam Head Exam: ATRAUMATIC, NORMAL INSPECTION - Eye Exam Eye Exam: EOMI, Normal appearance - ENT Exam ENT Exam: Mucous Membranes Dry - Neck Exam Neck exam: Positive for: Full Rom, Normal Inspection. Negative for: Lymphadenopathy, Meningismus - Respiratory Exam Respiratory Exam: Clear to Auscultation Bilateral, NORMAL BREATHING PATTERN - Cardiovascular Exam Cardiovascular Exam: REGULAR RHYTHM, +S1, +S2 - GI/Abdominal Exam GI & Abdominal Exam: Normal Bowel Sounds, Soft. absent: Distended, Guarding, Rigid, Tenderness - Extremities Exam Extremities exam: Positive for: full ROM Additional comments: Left arm on a cast. Right foot and lower leg in a immobilizer. - Neurological Exam Neurological exam: Alert, Oriented x3 - Psychiatric Exam Psychiatric exam: Normal Mood Results - Vital Signs Recent Vital Signs: Last Vital Signs Temp 99.2 F 05/05/17 15:48 Pulse 66 05/05/17 15:48 Resp 19 05/05/17 15:48 BP 145/67 05/05/17 15:48 Pulse Ox 97 05/05/17 15:48 - Labs Labs: Laboratory Results - last 24 hr 05/05/17 10:22 POC Glucose (mg/dL) 137 H Assessment & Plan - Assessment and Plan (Free Text) Assessment: 71 y/o woman with PMH of NSTEMI 04/23/2016, chronic sacral decubitus ulcer, right fibular fracture (01/16/17), osteoporosis, DM II, HTN, asthma, hypercholesterolemia, diverticulitis s/p Erinn's procedure w/ colostomy, HLD , CVA with right sided deficits, peripheral neuropathy, depression, anxiety is admitted for evaluation and management of S/P of surgical repair of displaced fracture of left distal radius 1) Left distal radius fracture - Pt had a scheduled Srugical repair of left distal radius fracture. - B/L wrist xray 04/25/17: Left distracted intra-articular fracture of distal radius from 04/03/17 fall. Right wrist shows chronic degenerative diseases - Venous duplex study showed evidence phlebitis of the right basilic vein, no evidence of DVT - orthopedics on board. - Continue Tylenol and Morphine ER BID - F/U orthopedics team's recommendation. 2) Right fibular fracture - Stable - Foot/ankle XR 04/15/2017: fracture of right malleolus/distal fibula at intermediate stage of healing, no acute fracture/dislocation. Diffuse osteopenia suggestive for osteoporosis - Podiatry evaluated and discharged pt, - Follow PT/OT recommendations. - tylenol and morphine for pain 3) HTN - controlled - Lisinopril 40 mg PO daily REEMA - F/U vitals signs. 4) NSTEMI - Stable - elevated troponin 04/23/2017 - Echo 04/23/2017: LVEF greater than 70%, LV diastolic function is abnormal. no regional wall motion abnormalities. RV normal size. RV systolic function normal. LA normal size. Trace to mild tricuspid regurgitation - asa 81 mg PO daily - atorvastatin 40 mg PO daily - metoprolol succinate 25 mg PO daily 5) Stage 4 sacral decubitus ulcer - chronic, stable - Continue wound care management - Bed position change Q2H 6) Diabetes - stable - A1c 6.0 on 04/23/17 - insulin lispro correction scale - hypoglycemic protocol 7) Anemia, Normocytic - stable - hx of microcytic anemia - H/H 9.9/31.3 HCV 82.8 - no acute source of bleeding - continue FeSO4 325 mg PO daily 8) Depression, Anxiety - recent hospitalization in [facility] for AMS, serotonin syndrome - psychiatry consulted, hold psych meds. 9) Pruritus of L feet -likely 2/2 to dry skin vs fungal infection -clotrimazole 1% -ammonium lactate -hydrocortisone 1% cream 10) Constipation -resolved -continue colace BID 11) Prophylaxis - SCD for DVT/PE. - protonix 40mg PO daily - Bed position change q2h - wound care
[2017-05-05] MEDS: ceFAZolin IV 2 gm in Dextrose 2 GM/50 ML BAG IVPB SCH (16:52)
[2017-05-05] MEDS ORDERED: Dextrose 50% SYRINGE Inj (50 ml) IV PRN (17:18)
[2017-05-05] MEDS ORDERED: Glucagon Recombinant 1 mg Inj IM PRN (17:18)
--- NOTE | 2017-05-05 21:32 | OP ---
PROCEDURE DATE: 05/05/2017 PREOPERATIVE DIAGNOSIS: Displaced left intraarticular distal radius fracture, three-part.. POSTOPERATIVE DIAGNOSIS: Displaced left intraarticular distal radius fracture, three-part. PROCEDURE: Open reduction and internal fixation of the left distal radius fracture with extensive volar locking plate. SURGEON: Cliff Maya MD REPRINT SORTER: Percy Ramirez MD, PGY-1. TYPE OF ANESTHESIA: Regional and general anesthesia. COMPLICATIONS: None. ESTIMATED BLOOD LOSS: Minimal. SPECIMEN: None. DISPOSITION: Stable to recovery room. OPERATIVE FINDINGS: Displaced comminuted distal radius fracture with intraarticular extension, which was amenable to open reduction and rigid fixation. DESCRIPTION OF PROCEDURE: The patient was taken to the operating room and placed supine on the operating room table. After adequate regional anesthesia and supplemental general anesthesia was given, well-padded non-sterile tourniquet was placed in the patient's left upper extremity. The entire extremity was then prepped and draped in standard surgical fashion. Prophylactic antibiotics were given. The proposed incision was marked out. This was a longitudinal incision along the course of the flexor carpi radialis tendon. The arm was elevated and exsanguinated with an Esmarch bandage. The tourniquet was then inflated to 250 mmHg. The Esmarch bandage was removed. An incision was made through the skin and all superficial veins were cauterized. Dissection was performed down to the superficial layer of the flexor carpi radialis sheath. It was incised along its radial most border. The FCR tendon was retracted ulnarly. The floor of the FCR sheath was incised as well along its radial most border. Dissection was then carried down between the radial artery and the flexor hallucis longus. Any intervening smaller branches of the radial artery were cauterized. The pronator quadratus was then visualized which was incised in an L-shape fashion over its insertion on the radius, the fracture was then visualized and explored. The fracture was radially deviated and depressed. Site of the fracture was cleaned out with rongeabdoul freer and open reduction was then performed through a combination of traction and digital pressure. The fracture was then irrigated with copious amounts of normal saline and suctioned. Reduction was held in place with percutaneous K-wire over the radial styloid. Next, left volar Synthes plate was applied to the volar aspect of the distal radius, was temporarily transfixed with Romero wires and its location was assessed under image intensification multiple times. Excellent placement of the plate was seen and near anatomic reduction was obtained as well. Three cortical screws were placed in the proximal part of the plate followed by locking pegs in distal aspect of the plate. Once again, the fracture was assessed under image intensification and excellent screw placement and anatomic reduction of the fracture was seen. Temporary K wires were removed, both screws were intact and the image intensification revealed excellent placement of the screws with no screws penetrating the radiocarpal joint or DRUJ. The wound was then irrigated with normal saline. The DRUJ was assessed and was stable, full passive range of motion of the wrist and elbow was obtainable. The tourniquet was deflated. Hemostasis was obtained with bipolar cautery. The skin was closed with 4-0 nylon interrupted sutures. Sterile dressing was placed consisting of fluffs, 4x4s and a thumb spica splint. The patient tolerated the procedure well, transferred to recovery room, awake, alert and in excellent condition. Cliff Maya MD JEANNE
[2017-05-05] MEDS: Morphine 30 mg SR Tab PO SCH (21:36)
[2017-05-05] MEDS ORDERED: Insulin Lispro (humaLOG) 100 Units/ml Inj SC SCH (22:00)
[2017-05-06] MEDS: ceFAZolin IV 2 gm in Dextrose 2 GM/50 ML BAG IVPB SCH (00:30)
[2017-05-06] MEDS: Morphine 4 MG/ML VIAL IVP PRN ×2 (02:29→07:05)
--- NOTE | 2017-05-06 07:45 | CP.PCM.PN ---
Subjective - Date & Time of Evaluation Date of Evaluation: 05/06/17 Time of Evaluation: 07:43 - Subjective Subjective: Patient states pain in wrist is controlled with pain medication. She still complains of some numbness and pain with moving fingers. Objective - Vital Signs/Intake and Output Vital Signs (last 24 hours): Temp Pulse Resp BP Pulse Ox 98.5 F 74 18 134/65 97 05/06/17 03:00 05/06/17 03:00 05/06/17 03:00 05/06/17 03:00 05/06/17 03:00 - Medications Medications: Current Medications Acetaminophen (Tylenol 325mg Tab) 650 mg PO Q4 PRN PRN Reason: Pain, moderate (4-7) Atorvastatin Calcium (Lipitor) 40 mg PO DAILY [facility] Clotrimazole (Lotrimin 1% Cream) 1 applic TOP BID [facility] Dextrose (Dextrose 50% Inj) 0 ml IV STAT PRN; Protocol PRN Reason: Hypoglycemia Protocol Dextrose (Glutose 15) 0 gm PO ONCE PRN; Protocol PRN Reason: Hypoglycemia Protocol Docusate Sodium (Colace) 100 mg PO BID [facility] Last Admin: 05/05/17 21:36 Dose: 100 mg Ferrous Sulfate (Feosol) 325 mg PO DAILY [facility] Glucagon (Glucagen Diagnostic Kit) 0 mg IM STAT PRN; Protocol PRN Reason: Hypoglycemia Protocol Hydrocortisone (Hydrocortisone 2.5%) 1 applic TOP BID [facility] Insulin Human Lispro (Humalog) 0 units SC ACHS [facility] PRN Reason: Protocol Lactic Acid (Lac-Hydrin 12% Lotion (225 G)) 1 applic TOP TID [facility] Lisinopril (Zestril) 40 mg PO DAILY [facility] Metoprolol Succinate (Toprol Xl) 25 mg PO DAILY [facility] Montelukast Sodium (Singulair) 10 mg PO HS [facility] Last Admin: 05/05/17 21:38 Dose: 10 mg Morphine Sulfate (Morphine Extended Release Tab) 30 mg PO Q12 [facility] Last Admin: 05/05/17 21:36 Dose: 30 mg Morphine Sulfate (Morphine) 2 mg IVP Q4 PRN PRN Reason: Pain, severe (8-10) Last Admin: 05/06/17 07:05 Dose: 2 mg Oxycodone/Acetaminophen (Percocet 5/325 Mg Tab) 1 tab PO Q4 PRN PRN Reason: Pain, moderate (4-7) Stop: 05/08/17 11:54 Pantoprazole Sodium (Protonix Ec Tab) 40 mg PO DAILY [facility] Zolpidem Tartrate (Ambien) 5 mg PO HS [facility] Last Admin: 05/05/17 23:00 Dose: 5 mg - Extremities Exam Additional comments: Patient c/o tingling to middle, ring finger. Says index finger is more numb. + flex fingers, ext fingers, full ROM thumb. FIngers warm, swollen, elevated higher, encourage ROM fingers +cap refill Assessment and Plan (1) Closed fracture of left distal radius Assessment & Plan: POD#1 s/p ORIF elevate at all times encourage ROM fingers ice orthopedically stable for transfer back to TCU [facility] hand d/w Dr. Maya, agrees with above Status: Acute (2) Displaced fracture of left ulna styloid process, initial encounter for closed fracture Status: Acute
[2017-05-06 07:46] LABS: HEMOGLOBIN 8.3 g/dL (12.0-16.0); MEAN CELL VOLUME 83.6 fl (81.0-99.0); MEAN CORPUSCULAR HEMOGLOBIN 26.6 pg (27.0-31.0); MEAN CORPUSCULAR HGB CONC 31.8 g/dL (33.0-37.0); RBC 3.11 Mil/uL (3.80-5.20); RED CELL DISTRIBUTION WIDTH 17.3 % (11.5-14.5); WHITE BLOOD COUNT 4.7 K/uL (4.8-10.8)
[2017-05-06 08:03] LABS: CALCIUM 8.6 mg/dL (8.4-10.2)
[2017-05-06] MEDS: Morphine 30 mg SR Tab PO SCH ×2 (08:28→20:16)
[2017-05-06] MEDS ORDERED: Metoprolol Succinate 25 mg XL Tab PO SCH (09:00)
[2017-05-06] MEDS ORDERED: Pantoprazole 40 mg EC Tab PO SCH (09:00)
--- NOTE | 2017-05-06 10:20 | CP.PCM.PN ---
Subjective - Date & Time of Evaluation Date of Evaluation: 05/06/17 Time of Evaluation: 08:20 - Subjective Subjective: 71 y/o F on post-operative day 1 after ORIF. L arm in a cast. Pt reports feeling well, L arm pain is well controlled with medications. Pt afebrile and tolerating PO. No acute events overnight. Objective - Vital Signs/Intake and Output Vital Signs (last 24 hours): Temp Pulse Resp BP Pulse Ox 98.6 F 70 20 146/70 96 05/06/17 08:37 05/06/17 08:37 05/06/17 08:37 05/06/17 08:37 05/06/17 08:37 - Medications Medications: Current Medications Acetaminophen (Tylenol 325mg Tab) 650 mg PO Q4 PRN PRN Reason: Pain, moderate (4-7) Atorvastatin Calcium (Lipitor) 40 mg PO DAILY [facility] Last Admin: 05/06/17 08:20 Dose: 40 mg Clotrimazole (Lotrimin 1% Cream) 1 applic TOP BID [facility] Dextrose (Dextrose 50% Inj) 0 ml IV STAT PRN; Protocol PRN Reason: Hypoglycemia Protocol Dextrose (Glutose 15) 0 gm PO ONCE PRN; Protocol PRN Reason: Hypoglycemia Protocol Docusate Sodium (Colace) 100 mg PO BID [facility] Last Admin: 05/06/17 08:20 Dose: 100 mg Ferrous Sulfate (Feosol) 325 mg PO DAILY [facility] Last Admin: 05/06/17 08:20 Dose: 325 mg Glucagon (Glucagen Diagnostic Kit) 0 mg IM STAT PRN; Protocol PRN Reason: Hypoglycemia Protocol Hydrocortisone (Hydrocortisone 2.5%) 1 applic TOP BID [facility] Insulin Human Lispro (Humalog) 0 units SC ACHS [facility] PRN Reason: Protocol Lactic Acid (Lac-Hydrin 12% Lotion (225 G)) 1 applic TOP TID [facility] Lisinopril (Zestril) 40 mg PO DAILY [facility] Last Admin: 05/06/17 08:21 Dose: 40 mg Metoprolol Succinate (Toprol Xl) 25 mg PO DAILY [facility] Last Admin: 05/06/17 08:20 Dose: 25 mg Montelukast Sodium (Singulair) 10 mg PO HS [facility] Last Admin: 05/05/17 21:38 Dose: 10 mg Morphine Sulfate (Morphine Extended Release Tab) 30 mg PO Q12 [facility] Last Admin: 05/06/17 08:28 Dose: 30 mg Morphine Sulfate (Morphine) 2 mg IVP Q4 PRN PRN Reason: Pain, severe (8-10) Last Admin: 05/06/17 07:05 Dose: 2 mg Oxycodone/Acetaminophen (Percocet 5/325 Mg Tab) 1 tab PO Q4 PRN PRN Reason: Pain, moderate (4-7) Stop: 05/08/17 11:54 Pantoprazole Sodium (Protonix Ec Tab) 40 mg PO DAILY [facility] Last Admin: 05/06/17 08:21 Dose: 40 mg Zolpidem Tartrate (Ambien) 5 mg PO HS [facility] Last Admin: 05/05/17 23:00 Dose: 5 mg - Labs Labs: 05/06/17 06:45 05/06/17 06:45 - Constitutional Appears: Well, Non-toxic, No Acute Distress - Head Exam Head Exam: ATRAUMATIC, NORMAL INSPECTION - Eye Exam Eye Exam: EOMI, Normal appearance - ENT Exam ENT Exam: Mucous Membranes Moist - Neck Exam Neck Exam: Full ROM - Respiratory Exam Respiratory Exam: Clear to Ausculation Bilateral, NORMAL BREATHING PATTERN - Cardiovascular Exam Cardiovascular Exam: REGULAR RHYTHM, +S1, +S2 - GI/Abdominal Exam GI & Abdominal Exam: Soft, Normal Bowel Sounds. absent: Tenderness - Extremities Exam Additional comments: L arm in a cast. Assessment and Plan - Assessment and Plan (Free Text) Assessment: 71 y/o woman with PMH of NSTEMI 04/23/2016, chronic sacral decubitus ulcer, right fibular fracture (01/16/17), osteoporosis, DM II, HTN, asthma, hypercholesterolemia, diverticulitis s/p Erinn's procedure w/ colostomy, HLD , CVA with right sided deficits, peripheral neuropathy, depression, anxiety is admitted for evaluation and management of S/P of surgical repair of displaced fracture of left distal radius 1) Left distal radius fracture - Pt had a scheduled Srugical repair of left distal radius fracture. - B/L wrist xray 04/25/17: Left distracted intra-articular fracture of distal radius from 04/03/17 fall. Right wrist shows chronic degenerative diseases - Venous duplex study showed evidence phlebitis of the right basilic vein, no evidence of DVT - orthopedics on board. - Continue Tylenol and Morphine ER BID - F/U orthopedics team's recommendation. - Rehabilitation: possible transfer to TCU for physical therapy. 2) Right fibular fracture - Stable - Foot/ankle XR 04/15/2017: fracture of right malleolus/distal fibula at intermediate stage of healing, no acute fracture/dislocation. Diffuse osteopenia suggestive for osteoporosis - Podiatry evaluated and discharged pt, - Follow PT/OT recommendations. - tylenol and morphine for pain 3) HTN - controlled - Lisinopril 40 mg PO daily [facility] - F/U vitals signs. 4) NSTEMI - Stable - elevated troponin 04/23/2017 - Echo 04/23/2017: LVEF greater than 70%, LV diastolic function is abnormal. no regional wall motion abnormalities. RV normal size. RV systolic function normal. LA normal size. Trace to mild tricuspid regurgitation - asa 81 mg PO daily - atorvastatin 40 mg PO daily - metoprolol succinate 25 mg PO daily 5) Stage 4 sacral decubitus ulcer - chronic, stable - Continue wound care management - Bed position change Q2H 6) Diabetes - stable - A1c 6.0 on 04/23/17 - insulin lispro correction scale - hypoglycemic protocol 7) Anemia, Normocytic - stable - hx of microcytic anemia - H/H 9.9/31.3 HCV 82.8 - no acute source of bleeding - continue FeSO4 325 mg PO daily 8) Depression, Anxiety - recent hospitalization in [facility] for AMS, serotonin syndrome - psychiatry consulted, hold psych meds. 9) Pruritus of L feet -likely 2/2 to dry skin vs fungal infection -clotrimazole 1% -ammonium lactate -hydrocortisone 1% cream 10) Constipation -resolved -continue colace BID 11) Prophylaxis - Heparin 5000 SC Q8H for DVT/PE. - protonix 40mg PO daily - Bed position change q2h - wound care
--- NOTE | 2017-05-06 11:09 | RAD ---
PROCEDURE: Left Wrist Radiographs. HISTORY: post op xrays, s/p left distal radius fx COMPARISON: None. FINDINGS: Distal left upper extremity cast limits evaluation of fine bony detail. There has been interval open reduction internal plate and screw fixation of the previously described comminuted distal radial fracture. Osseous components are seen with improved, alignment. Minimally displaced ulnar styloid fracture is redemonstrated. IMPRESSION: Findings as above.
[2017-05-06 16:05] VITALS: O2SAT 97
[2017-05-06 20:58] VITALS: BP 129/69; PULSE 76; RESP 18; TEMP 99
== END 2017-05-06 21:30 | DRG 510 ==
LOC: H.OPSURG 06:03 → H.MEDSURG1 11:53 → H.OPSURG 15:08
PROVIDERS: ADMIT Family Medicine Geriatric Medicine; ATTEND Family Medicine Geriatric Medicine
PROC: 3E0T33Z Introduction of Anti-inflammatory into Peripheral Nerves and Plexi, Percutaneous Approach (ICD-10-PCS; 2017-05-05)
PROC: 0PSJ04Z Reposition Left Radius with Internal Fixation Device, Open Approach (ICD-10-PCS; principal; 2017-05-05 07:45)
PROC: 3E0T3BZ Introduction of Anesthetic Agent into Peripheral Nerves and Plexi, Percutaneous Approach (ICD-10-PCS; 2017-05-05 07:45)
DX: S52.572A Other intraarticular fracture of lower end of left radius, initial encounter for closed fracture (principal); L89.154 Pressure ulcer of sacral region, stage 4; E11.42 Type 2 diabetes mellitus with diabetic polyneuropathy; I69.398 Other sequelae of cerebral infarction; I07.1 Rheumatic tricuspid insufficiency; D50.9 Iron deficiency anemia, unspecified; L29.8 Other pruritus; E78.5 Hyperlipidemia, unspecified; I10 Essential (primary) hypertension; I25.2 Old myocardial infarction; M81.0 Age-related osteoporosis without current pathological fracture; J45.909 Unspecified asthma, uncomplicated; G89.29 Other chronic pain; K59.00 Constipation, unspecified; F41.9 Anxiety disorder, unspecified; F32.9 Major depressive disorder, single episode, unspecified; W19.XXXA Unspecified fall, initial encounter; R26.81 Unsteadiness on feet; Z93.3 Colostomy status; Z88.2 Allergy status to sulfonamides; Z91.041 Radiographic dye allergy status; Z87.81 Personal history of (healed) traumatic fracture; Z79.4 Long term (current) use of insulin; Z79.82 Long term (current) use of aspirin; Z91.81 History of falling; Z87.01 Personal history of pneumonia (recurrent); Z98.0 Intestinal bypass and anastomosis status; Z90.710 Acquired absence of both cervix and uterus; Y93.9 Activity, unspecified; Y92.9 Unspecified place or not applicable

== ENCOUNTER 2017-05-06 20:53 | Inpatient (IN) | payer OTHER, MEDICAID ==
[2017-05-06 21:59] VITALS: BMI 35.2
[2017-05-06] MEDS ORDERED: Oxycodone/Acetaminophen 5/325 mg Tab PO PRN (23:05)
[2017-05-07 07:50] VITALS: RESP 20
--- NOTE | 2017-05-07 08:43 | CP.PCM.HP ---
History of Present Illness - History of Present Illness History of Present Illness: CC: LEFT radial fracture 71F admitted for further PT after repair of LEFT radial fracture. Patient denies any shortness of breath, chest pain/palpitations, and reports her LEFT arm is doing well and the pain is controlled with current medication regimen. She is still c/o some mild tingling and numbness at tips of ring finger Of note: She is primarily interested in returning home, but was agreeable to TCU for PT. Challenges for her recuperation are a prior RIGHT CVA, recent but healed RIGHT ankle fracture, and now a LEFT radial fracture. PMH: chronic sacral decubitus ulcer, Rt fibular fracture (01/16/17), Anemia, DM ( diet controlled), HTN, Asthma, HLD, CVA with right sided deficits, chronic back pain, peripheral neuropathy, depression, anxiety, diverticulitis s/p Nunes's PSH: spinal surgery, Hartmanns' procedure (rectosigmoid colon resection with colostomy), cholecystectomy, hysterectomy, sacral wound debridement 06/10/2016 SHx: Denies smoking/alcohol/drugs SULMA: ASA 81mg PO QD Vit D 50,000 unit PO weekly Calcitonin 200 unit ACT solution-1 spray in each nostril BID Alendronate 70mg PO weekly Lisinopril 20mg PO QD Ferrous sulfate 325mg PO QD Bupropion Hcl 150mg PO QD Duloxetine HCl 60mg PO QD Sertraline 150mg PO QD Zolpidem tartrate 5mg PO QHS Nystatin powder apply as directed Montelukast sodium 10mg PO QHS Atorvastatin 40mg PO QHS Allergies: iodine (rash), sulfa drugs (rash) Present on Admission - Present on Admission Any Indicators Present on Admission: No Review of Systems - Review of Systems All systems: reviewed and no additional remarkable complaints except - Musculoskeletal Musculoskeletal: Tingling (mild, LEFT ring finger) Past Patient History - Infectious Disease Hx of Infectious Diseases: None - Past Medical History & Family History Past Medical History?: Yes - Past Social History Smoking Status: Never Smoked - CARDIAC Hx Cardiac Disorders: Yes Hx Congestive Heart Failure: No Hx Hypercholesterolemia: Yes Hx Hypertension: Yes - PULMONARY Hx Respiratory Disorders: Yes Hx Asthma: Yes Hx Chronic Obstructive Pulmonary Disease (COPD): No Hx Pneumonia: Yes - NEUROLOGICAL Hx Neurological Disorder: Yes HX Cerebrovascular Accident: Yes Hx Transient Ischemic Attacks (TIA): Yes Other/Comment: cerebral infarction - HEENT Hx HEENT Problems: No Other/Comment: GLASSES - NEARSIGHTEDNESS. - RENAL Hx Chronic Kidney Disease: No Hx Renal Failure: No - ENDOCRINE/METABOLIC Hx Endocrine Disorders: Yes Hx Diabetes Mellitus Type 1: No Hx Diabetes Mellitus Type 2: Yes Hx Hypothyroidism: No - HEMATOLOGICAL/ONCOLOGICAL Hx Blood Disorders: Yes (Anemia) Hx AIDS: No Hx Anemia: Yes Hx Blood Transfusions: Yes Hx Blood Transfusion Reaction: No Hx Hepatitis A: Yes (WHEN PATIENT WAS IN 2ND GRADE.) Hx Human Immunodeficiency Virus (HIV): No - INTEGUMENTARY Hx Dermatological Problems: No Hx Cellulitis: Yes (BLE) Other/Comment: Sacral decubiti, RIGHT HEEL (DTI) - MUSCULOSKELETAL/RHEUMATOLOGICAL Hx Musculoskeletal Disorders: Yes (Back surgery) Hx Arthritis: Yes Hx Back Pain: Yes Hx Degenerative Joint Disease: Yes Hx Falls: Yes (with resulting fx to left wrist) Hx Fractures: Yes Hx Rheumatoid Arthritis: No Hx Unsteady Gait: Yes - GASTROINTESTINAL Hx Gastrointestinal Disorders: Yes Hx Bowel Surgery: Yes Hx Colostomy: Yes Hx Diverticulitis: Yes (s/p Erinn procedure) Hx Irritable Bowel: Yes Other/Comment: Bladder and colon fistula - GENITOURINARY/GYNECOLOGICAL Hx Genitourinary Disorders: No Other/Comment: bladder fistula - PSYCHIATRIC Hx Psychophysiologic Disorder: Yes Hx Anxiety: Yes Hx Depression: Yes Hx Emotional Abuse: No Hx Physical Abuse: No Hx Substance Use: No - SURGICAL HISTORY Hx Surgeries: Yes Hx Cholecystectomy: Yes Hx Hysterectomy: Yes Hx Orthopedic Surgery: Yes (Back Sx) Other/Comment: spinal fusion. colostomy - ANESTHESIA Hx Anesthesia: Yes Hx Anesthesia Reactions: No Hx Malignant Hyperthermia: No Meds Allergies/Adverse Reactions: Allergies Allergy/AdvReac Type Severity Reaction Status Date / Time iodine Allergy RASH Verified 04/23/17 07:10 Sulfa (Sulfonamide Allergy RASH Verified 04/27/17 17:35 Antibiotics) Physical Exam - Constitutional Appears: Well, Non-toxic, No Acute Distress - Head Exam Head Exam: ATRAUMATIC, NORMAL INSPECTION - Eye Exam Eye Exam: EOMI, Normal appearance - ENT Exam ENT Exam: Mucous Membranes Moist, Normal Exam - Neck Exam Neck exam: Positive for: Normal Inspection - Respiratory Exam Respiratory Exam: Clear to Auscultation Bilateral, NORMAL BREATHING PATTERN - Cardiovascular Exam Cardiovascular Exam: REGULAR RHYTHM - GI/Abdominal Exam GI & Abdominal Exam: Normal Bowel Sounds (Colostomy patent for brown ), Soft - Extremities Exam Extremities exam: Positive for: normal capillary refill, pedal pulses present - Expanded Upper Extremities Exam Left General: absent: normal inspection (Dressing in place) Neurosensory exam: median nerve intact, radial nerve intact, ulnar nerve intact Vascular exam: radial pulse, normal capillary refill - Neurological Exam Neurological exam: Alert, Oriented x3 Results - Vital Signs Recent Vital Signs: Last Vital Signs Temp 37.7 C H 05/07/17 07:49 Pulse 71 05/07/17 07:49 Resp 20 05/07/17 07:49 BP 149/67 05/07/17 07:49 Pulse Ox 97 05/07/17 07:49 - Labs Result Diagrams: 05/07/17 11:59 05/07/17 11:59 Assessment & Plan - Assessment and Plan (Free Text) Assessment: 1. POD #2 s/p LEFT radial fracture repair - c/w PT - Ortho: [facility] 2. Right fibular fracture (01/16/17) - stable, healing - Podiatry, WBAT 3. Sacral Decubitus Ulcer - c/w wound care as needed - c/w PT, pressure off-loading 4. HTN -controlled -c/w medication 5. Prediabetes (A1C- 6.0) -controlled 6. Mild Intermittent Asthma -controlled 7. Anemia of chronic disease - chronic, stable - c/w Feosol 8. Thrombocytopenia - platelets 119 - chronic stable 9. Depression complicated by recent concern for Serotonin Syndrome - All psychiatric medications have been held - Re-consult psych to evaluate for possible re-starting 10. Osteoporosis - Will consider re-starting medications tomorrow 11. DVT prophylaxis - Renal function returning - Heparin 5,000U, SC, Q12H
[2017-05-07] MEDS: Metoprolol Succinate 25 mg XL Tab PO SCH (09:22)
[2017-05-07] MEDS: Morphine 30 mg SR Tab PO SCH ×2 (09:29→21:59)
[2017-05-07] MEDS: Pantoprazole 40 mg EC Tab PO SCH (09:29)
[2017-05-07 12:51] LABS: BASO % 0.8 % (0.0-2.0); EOS # 0.1 K/uL (0.0-0.7); EOS % 1.6 % (0.0-4.0); HEMOGLOBIN 8.7 g/dL (12.0-16.0); LYMPH # 0.8 K/uL (1.0-4.3); LYMPH % 18.4 % (20.0-40.0); MEAN CELL VOLUME 83.8 fl (81.0-99.0); MEAN CORPUSCULAR HEMOGLOBIN 26.2 pg (27.0-31.0); MEAN CORPUSCULAR HGB CONC 31.3 g/dL (33.0-37.0); MEAN PLATELET VOLUME 8.6 fl (7.2-11.7); MONO # 0.3 K/uL (0.0-0.8); MONO % 7.4 % (0.0-10.0); NEUT # 3.2 K/uL (1.8-7.0); NEUT % 71.8 % (50.0-75.0); NRBC % 0.1 % (0.0-0.0); RBC 3.31 Mil/uL (3.80-5.20); RED CELL DISTRIBUTION WIDTH 17.6 % (11.5-14.5); WHITE BLOOD COUNT 4.5 K/uL (4.8-10.8)
[2017-05-07 13:04] LABS: ALBUMIN 3.2 g/dL (3.5-5.0); CALCIUM 8.5 mg/dL (8.4-10.2)
[2017-05-08 07:42] LABS: HEMOGLOBIN 7.8 g/dL (12.0-16.0); MEAN CELL VOLUME 84.4 fl (81.0-99.0); MEAN CORPUSCULAR HEMOGLOBIN 26.3 pg (27.0-31.0); MEAN CORPUSCULAR HGB CONC 31.1 g/dL (33.0-37.0); RBC 2.97 Mil/uL (3.80-5.20); RED CELL DISTRIBUTION WIDTH 17.9 % (11.5-14.5); WHITE BLOOD COUNT 3.3 K/uL (4.8-10.8)
--- NOTE | 2017-05-08 08:26 | CP.PCM.PN ---
Subjective - Date & Time of Evaluation Date of Evaluation: 05/08/17 Time of Evaluation: 08:22 - Subjective Subjective: 71 y/o F admitted to TCU for rehabilitation s/p Left distal radius ORIF. Today, pt reports feeling ok, with good appetite, tolerating PO with NO acute complaints. Pt states doing her left hand and fingers exercises frequently. Objective - Vital Signs/Intake and Output Vital Signs (last 24 hours): Temp Pulse Resp BP Pulse Ox 97.9 F 66 20 130/67 98 05/08/17 07:57 05/08/17 07:57 05/08/17 07:57 05/08/17 07:57 05/08/17 07:57 - Medications Medications: Current Medications Acetaminophen (Tylenol 325mg Tab) 650 mg PO Q6 PRN PRN Reason: Pain, Mild (1-3) Atorvastatin Calcium (Lipitor) 40 mg PO HS [facility] Last Admin: 05/07/17 21:07 Dose: 40 mg Clotrimazole (Lotrimin 1% Cream) 1 applic TOP BID [facility] Last Admin: 05/07/17 17:06 Dose: 1 applic Docusate Sodium (Colace) 100 mg PO DAILY [facility] Last Admin: 05/07/17 09:25 Dose: 100 mg Ferrous Sulfate (Feosol) 325 mg PO DAILY [facility] Last Admin: 05/07/17 09:21 Dose: 325 mg Heparin Sodium (Porcine) (Heparin) 5,000 units SC Q12 [facility] PRN Reason: Protocol Last Admin: 05/07/17 21:07 Dose: 5,000 units Hydrocortisone (Hydrocortisone 2.5%) 1 applic TOP BID [facility] Last Admin: 05/07/17 17:06 Dose: 1 applic Lactic Acid (Lac-Hydrin 12% Lotion (225 G)) 1 applic TOP TID [facility] Last Admin: 05/07/17 17:05 Dose: 1 applic Lisinopril (Zestril) 40 mg PO DAILY [facility] Last Admin: 05/07/17 09:21 Dose: 40 mg Metoprolol Succinate (Toprol Xl) 25 mg PO DAILY [facility] Last Admin: 05/07/17 09:22 Dose: 25 mg Montelukast Sodium (Singulair) 10 mg PO HS [facility] Last Admin: 05/07/17 21:07 Dose: 10 mg Morphine Sulfate (Morphine Extended Release Tab) 30 mg PO Q12 [facility] Last Admin: 05/07/17 21:59 Dose: 30 mg Oxycodone/Acetaminophen (Percocet 5/325 Mg Tab) 1 tab PO Q4 PRN PRN Reason: Pain, moderate (4-7) Stop: 05/09/17 23:06 Pantoprazole Sodium (Protonix Ec Tab) 40 mg PO DAILY [facility] Last Admin: 05/07/17 09:29 Dose: 40 mg Zolpidem Tartrate (Ambien) 5 mg PO HS [facility] Last Admin: 05/07/17 23:00 Dose: 5 mg - Labs Labs: 05/08/17 06:00 05/07/17 11:59 - Constitutional Appears: Well, Non-toxic, No Acute Distress - Head Exam Head Exam: ATRAUMATIC, NORMAL INSPECTION - ENT Exam ENT Exam: Mucous Membranes Moist, Normal Exam - Neck Exam Neck Exam: Full ROM, Normal Inspection - Respiratory Exam Respiratory Exam: Clear to Ausculation Bilateral, NORMAL BREATHING PATTERN - Cardiovascular Exam Cardiovascular Exam: REGULAR RHYTHM, +S1, +S2 - GI/Abdominal Exam GI & Abdominal Exam: Soft, Normal Bowel Sounds. absent: Tenderness - Extremities Exam Extremities Exam: absent: Calf Tenderness, Joint Swelling, Tenderness - Psychiatric Exam Psychiatric exam: Normal Affect, Normal Mood Assessment and Plan - Assessment and Plan (Free Text) Assessment: 1. POD #2 s/p LEFT radial fracture repair - c/w PT - Ortho: [facility] 2. Anemia, normocytic - Chronic - Today's (05/08/17) at 06:00, H/H was 7.8/25.1. - CBC, type & screen, vitamin B12, FOBT ordered, to be drawn at 14:00. - Feosol 325mg increased to BID from once daily. - Possible blood transfusion discussed with pt. - Pt agrees to management. 3. Right fibular fracture (01/16/17) - stable, healing - Podiatry, WBAT 4. Sacral Decubitus Ulcer - c/w wound care as needed - c/w PT, pressure off-loading 5. HTN -controlled -c/w medication 6. Prediabetes (A1C- 6.0) -controlled 7. Mild Intermittent Asthma -controlled -c/w home meds 8. Thrombocytopenia - platelets 119 on 05/07/17 - platelets 99 on 05/08/17 - chronic stable 9. Depression complicated by recent concern for Serotonin Syndrome - All psychiatric medications have been held - Re-consult psych to evaluate for possible re-starting 10. Osteoporosis - Will consider re-starting medications tomorrow. 11. DVT prophylaxis - Renal function returning - Heparin 5,000U, SC, Q12H
[2017-05-08] MEDS: Pantoprazole 40 mg EC Tab PO SCH (08:34)
[2017-05-08] MEDS: Metoprolol Succinate 25 mg XL Tab PO SCH (08:34)
[2017-05-08] MEDS: Morphine 30 mg SR Tab PO SCH ×2 (08:37→21:34)
[2017-05-08 16:52] LABS: HEMOGLOBIN 8.4 g/dL (12.0-16.0); RBC 3.22 Mil/uL (3.80-5.20); RED CELL DISTRIBUTION WIDTH 17.8 % (11.5-14.5); WHITE BLOOD COUNT 3.8 K/uL (4.8-10.8)
[2017-05-09 06:13] LABS: MEAN CELL VOLUME 83.9 fl (81.0-99.0); MEAN CORPUSCULAR HEMOGLOBIN 26.3 pg (27.0-31.0); MEAN CORPUSCULAR HGB CONC 31.3 g/dL (33.0-37.0); RBC 3.06 Mil/uL (3.80-5.20); WHITE BLOOD COUNT 3.3 K/uL (4.8-10.8)
[2017-05-09 06:21] LABS: CALCIUM 8.3 mg/dL (8.4-10.2)
--- NOTE | 2017-05-09 07:35 | CP.PCM.PN ---
Subjective - Date & Time of Evaluation Date of Evaluation: 05/09/17 Time of Evaluation: 07:28 - Subjective Subjective: 71 y/o F s/p Left distal radial ORIF. Pt examined and evaluated by bedside. Pt reports feeling well, tolerating PO, good appetite and afebrile. No acute events overnight. Objective - Vital Signs/Intake and Output Vital Signs (last 24 hours): Temp Pulse Resp BP Pulse Ox 97.7 F 58 L 20 111/60 100 05/08/17 19:52 05/08/17 19:52 05/08/17 19:52 05/08/17 19:52 05/08/17 19:52 - Medications Medications: Current Medications Acetaminophen (Tylenol 325mg Tab) 650 mg PO Q6 PRN PRN Reason: Pain, Mild (1-3) Atorvastatin Calcium (Lipitor) 40 mg PO HS [facility] Last Admin: 05/08/17 21:33 Dose: 40 mg Clotrimazole (Lotrimin 1% Cream) 1 applic TOP BID [facility] Last Admin: 05/08/17 16:49 Dose: 1 applic Docusate Sodium (Colace) 100 mg PO DAILY [facility] Last Admin: 05/08/17 08:32 Dose: 100 mg Ferrous Sulfate (Feosol) 325 mg PO BID [facility] Last Admin: 05/08/17 16:50 Dose: 325 mg Heparin Sodium (Porcine) (Heparin) 5,000 units SC Q12 [facility] PRN Reason: Protocol Last Admin: 05/08/17 21:34 Dose: 5,000 units Hydrocortisone (Hydrocortisone 2.5%) 1 applic TOP BID [facility] Last Admin: 05/08/17 16:48 Dose: 1 applic Lactic Acid (Lac-Hydrin 12% Lotion (225 G)) 1 applic TOP TID [facility] Last Admin: 05/08/17 16:48 Dose: 1 applic Lisinopril (Zestril) 40 mg PO DAILY [facility] Last Admin: 05/08/17 08:34 Dose: 40 mg Metoprolol Succinate (Toprol Xl) 25 mg PO DAILY [facility] Last Admin: 05/08/17 08:34 Dose: 25 mg Montelukast Sodium (Singulair) 10 mg PO HS [facility] Last Admin: 05/08/17 21:33 Dose: 10 mg Morphine Sulfate (Morphine Extended Release Tab) 30 mg PO Q12 [facility] Last Admin: 05/08/17 21:34 Dose: 30 mg Oxycodone/Acetaminophen (Percocet 5/325 Mg Tab) 1 tab PO Q4 PRN PRN Reason: Pain, moderate (4-7) Stop: 05/09/17 23:06 Pantoprazole Sodium (Protonix Ec Tab) 40 mg PO DAILY [facility] Last Admin: 05/08/17 08:34 Dose: 40 mg Zolpidem Tartrate (Ambien) 5 mg PO HS [facility] Last Admin: 05/08/17 22:29 Dose: 5 mg - Labs Labs: 05/09/17 05:35 05/09/17 05:35 - Constitutional Appears: Well, No Acute Distress - Head Exam Head Exam: ATRAUMATIC - Eye Exam Eye Exam: EOMI, Normal appearance - ENT Exam ENT Exam: Mucous Membranes Dry - Neck Exam Neck Exam: Full ROM, Normal Inspection. absent: Meningismus - Respiratory Exam Respiratory Exam: Clear to Ausculation Bilateral, NORMAL BREATHING PATTERN - Cardiovascular Exam Cardiovascular Exam: REGULAR RHYTHM, +S1, +S2 - GI/Abdominal Exam GI & Abdominal Exam: Soft, Normal Bowel Sounds. absent: Guarding, Tenderness - Extremities Exam Extremities Exam: absent: Calf Tenderness, Pedal Edema Assessment and Plan - Assessment and Plan (Free Text) Assessment: 71 y/o woman with PMH of NSTEMI 04/23/2016, chronic sacral decubitus ulcer, right fibular fracture (01/16/17), osteoporosis, DM II, HTN, asthma, hypercholesterolemia, diverticulitis s/p Erinn's procedure w/ colostomy, HLD , CVA with right sided deficits, peripheral neuropathy, depression, anxiety is admitted to TCU for rehabilitation S/P of surgical repair of displaced fracture of left distal radius Plan: 1. POD #2 s/p LEFT radial fracture repair - c/w PT - Ortho: NWB 2. Anemia, normocytic - Chronic - (05/08/17) at 06:00, H/H was 7.8/25.1. - (05/08/17) at 14:00, H/H was 8.4/27.1 - (05/09/17) at 05:35, H/H was 8.0/25.6. - Type & screen: B positive, antibody neg. - Feosol 325mg BID - No blood transfusion necessary at this time. - f/u FOBT. 3. Right fibular fracture (01/16/17) - stable, healing - Podiatry, WBAT 4. Sacral Decubitus Ulcer - c/w wound care as needed - c/w PT, pressure off-loading 5. HTN -controlled -c/w medication 6. Prediabetes (A1C- 6.0) -controlled 7. Mild Intermittent Asthma -controlled -c/w home meds 8. Thrombocytopenia - platelets 119 on 05/07/17 - platelets 99 on 05/08/17 - chronic stable 9. Depression complicated by recent concern for Serotonin Syndrome - All psychiatric medications have been held - Re-consult psych to evaluate for possible re-starting 10. Osteoporosis - Will consider re-starting medications. 11. DVT prophylaxis - Renal function returning - Heparin 5,000U, SC, Q12H
[2017-05-09] MEDS: Pantoprazole 40 mg EC Tab PO SCH (09:00)
[2017-05-09] MEDS: Metoprolol Succinate 25 mg XL Tab PO SCH (09:02)
[2017-05-09] MEDS: Morphine 30 mg SR Tab PO SCH ×2 (09:22→22:57)
--- NOTE | 2017-05-09 10:52 | CP.PCM.PN ---
Subjective - Date & Time of Evaluation Date of Evaluation: 05/09/17 Time of Evaluation: 10:50 - Subjective Subjective: Patient states pain in wrist is minimal. She still is complaining of same numbness in fingers. Objective - Vital Signs/Intake and Output Vital Signs (last 24 hours): Temp Pulse Resp BP Pulse Ox 97.9 F 72 20 124/58 L 98 05/09/17 08:04 05/09/17 09:02 05/09/17 08:04 05/09/17 09:02 05/09/17 08:04 - Medications Medications: Current Medications Acetaminophen (Tylenol 325mg Tab) 650 mg PO Q6 PRN PRN Reason: Pain, Mild (1-3) Atorvastatin Calcium (Lipitor) 40 mg PO HS [facility] Last Admin: 05/08/17 21:33 Dose: 40 mg Clotrimazole (Lotrimin 1% Cream) 1 applic TOP BID [facility] Last Admin: 05/09/17 09:00 Dose: 1 applic Docusate Sodium (Colace) 100 mg PO DAILY [facility] Last Admin: 05/09/17 08:59 Dose: 100 mg Ferrous Sulfate (Feosol) 325 mg PO BID [facility] Last Admin: 05/09/17 08:58 Dose: 325 mg Heparin Sodium (Porcine) (Heparin) 5,000 units SC Q12 [facility] PRN Reason: Protocol Last Admin: 05/09/17 09:40 Dose: 5,000 units Hydrocortisone (Hydrocortisone 2.5%) 1 applic TOP BID [facility] Last Admin: 05/09/17 09:01 Dose: 1 applic Lactic Acid (Lac-Hydrin 12% Lotion (225 G)) 1 applic TOP TID [facility] Last Admin: 05/09/17 09:00 Dose: 1 applic Lisinopril (Zestril) 40 mg PO DAILY [facility] Last Admin: 05/09/17 09:02 Dose: 40 mg Metoprolol Succinate (Toprol Xl) 25 mg PO DAILY [facility] Last Admin: 05/09/17 09:02 Dose: 25 mg Montelukast Sodium (Singulair) 10 mg PO HS [facility] Last Admin: 05/08/17 21:33 Dose: 10 mg Morphine Sulfate (Morphine Extended Release Tab) 30 mg PO Q12 [facility] Last Admin: 05/09/17 09:22 Dose: 30 mg Oxycodone/Acetaminophen (Percocet 5/325 Mg Tab) 1 tab PO Q4 PRN PRN Reason: Pain, moderate (4-7) Stop: 05/09/17 23:06 Pantoprazole Sodium (Protonix Ec Tab) 40 mg PO DAILY [facility] Last Admin: 05/09/17 09:00 Dose: 40 mg Zolpidem Tartrate (Ambien) 5 mg PO HS [facility] Last Admin: 05/08/17 22:29 Dose: 5 mg - Labs Labs: 05/09/17 05:35 05/09/17 05:35 - Extremities Exam Additional comments: LUE: splint intact, hand elevated. Fingers warm, complains of tingling in ring and middle finger, denies sensation to index volarly, +flexion/ext fingers/thumb , abd/add, swelling improving (no change in exam) Assessment and Plan (1) Closed fracture of left distal radius Assessment & Plan: POD#4 s/p right distal radius ORIF -elevation -PT/OT -ok for platform walker, but NWB to hand/wrist -d/w Dr. Maya, agrees wtia above Status: Acute (2) Displaced fracture of left ulna styloid process, initial encounter for closed fracture Status: Acute
[2017-05-10] MEDS: Metoprolol Succinate 25 mg XL Tab PO SCH (08:43)
[2017-05-10] MEDS: Pantoprazole 40 mg EC Tab PO SCH (08:43)
[2017-05-10] MEDS: Morphine 30 mg SR Tab PO SCH ×2 (08:53→22:45)
[2017-05-11] MEDS: Morphine 30 mg SR Tab PO SCH ×2 (09:02→20:54)
[2017-05-11] MEDS: Metoprolol Succinate 25 mg XL Tab PO SCH (09:03)
[2017-05-11] MEDS: Pantoprazole 40 mg EC Tab PO SCH (09:03)
--- NOTE | 2017-05-11 10:55 | CP.PCM.PN ---
Subjective - Date & Time of Evaluation Date of Evaluation: 05/11/17 Time of Evaluation: 10:47 - Subjective Subjective: 71 y/o F evaluated and examined by bedside. Pt was found sitting in a wheel chair with a small bucket on her arms and close to face. Pt complaining of nausea since this morning, pt reports vomiting bilious liquid material since several minutes ago. Stomach feels mildly achy as per patient. Pt afebrile, denies headache, dizziness, CP, SOB, abdominal cramping or distension. Objective - Vital Signs/Intake and Output Vital Signs (last 24 hours): Temp Pulse Resp BP Pulse Ox 98.2 F 66 20 135/70 99 05/11/17 08:05 05/11/17 09:04 05/11/17 08:05 05/11/17 09:04 05/11/17 08:05 - Medications Medications: Current Medications Acetaminophen (Tylenol 325mg Tab) 650 mg PO Q6 PRN PRN Reason: Pain, Mild (1-3) Atorvastatin Calcium (Lipitor) 40 mg PO [facility] Last Admin: 05/10/17 22:44 Dose: 40 mg Clotrimazole (Lotrimin 1% Cream) 1 applic TOP BID [facility] Last Admin: 05/11/17 09:04 Dose: 1 applic Docusate Sodium (Colace) 100 mg PO DAILY [facility] Last Admin: 05/11/17 09:02 Dose: 100 mg Ferrous Sulfate (Feosol) 325 mg PO BID [facility] Last Admin: 05/11/17 09:04 Dose: 325 mg Heparin Sodium (Porcine) (Heparin) 5,000 units SC Q12 [facility] PRN Reason: Protocol Last Admin: 05/11/17 09:06 Dose: 5,000 units Hydrocortisone (Hydrocortisone 2.5%) 1 applic TOP BID [facility] Last Admin: 05/11/17 09:06 Dose: 1 applic Lactic Acid (Lac-Hydrin 12% Lotion (225 G)) 1 applic TOP TID [facility] Last Admin: 05/11/17 09:05 Dose: 1 applic Lisinopril (Zestril) 40 mg PO DAILY [facility] Last Admin: 05/11/17 09:04 Dose: 40 mg Metoprolol Succinate (Toprol Xl) 25 mg PO DAILY [facility] Last Admin: 05/11/17 09:03 Dose: 25 mg Montelukast Sodium (Singulair) 10 mg PO [facility] Last Admin: 05/10/17 22:46 Dose: 10 mg Morphine Sulfate (Morphine Extended Release Tab) 30 mg PO Q12 [facility] Last Admin: 05/11/17 09:02 Dose: 30 mg Ondansetron HCl (Zofran Odt) 4 mg PO Q8H PRN PRN Reason: Nausea/Vomiting Pantoprazole Sodium (Protonix Ec Tab) 40 mg PO DAILY [facility] Last Admin: 05/11/17 09:03 Dose: 40 mg Zolpidem Tartrate (Ambien) 5 mg PO [facility] Last Admin: 05/11/17 01:18 Dose: Not Given - Labs Labs: 05/09/17 05:35 05/09/17 05:35 - Constitutional Appears: Well, No Acute Distress - Head Exam Head Exam: ATRAUMATIC, NORMAL INSPECTION - Eye Exam Eye Exam: EOMI, Normal appearance - ENT Exam ENT Exam: Mucous Membranes Moist - Neck Exam Neck Exam: Full ROM. absent: Meningismus - Respiratory Exam Respiratory Exam: Clear to Ausculation Bilateral, NORMAL BREATHING PATTERN - Cardiovascular Exam Cardiovascular Exam: REGULAR RHYTHM, +S1, +S2 - GI/Abdominal Exam GI & Abdominal Exam: Soft, Normal Bowel Sounds. absent: Guarding, Rigid, Tenderness, Pulsatile Mass, Rebound Assessment and Plan - Assessment and Plan (Free Text) Assessment: 71 y/o woman with PMH of NSTEMI 04/23/2016, chronic sacral decubitus ulcer, right fibular fracture (01/16/17), osteoporosis, DM II, HTN, asthma, hypercholesterolemia, diverticulitis s/p Erinn's procedure w/ colostomy, HLD , CVA with right sided deficits, peripheral neuropathy, depression, anxiety is admitted to TCU for rehabilitation S/P of surgical repair of displaced fracture of left distal radius Plan: 1. POD #6 s/p LEFT radial fracture repair - c/w PT - Ortho: NWB - Rx for Brake extension given to nurse. 2. Vomiting - Zofran 4 mg PO - Monitor symptoms. 3. Anemia, normocytic - Chronic - (05/08/17) at 06:00, H/H was 7.8/25.1. - (05/08/17) at 14:00, H/H was 8.4/27.1 - (05/09/17) at 05:35, H/H was 8.0/25.6. - Type & screen: B positive, antibody neg. - Feosol 325mg BID - No blood transfusion necessary at this time. - FOBT-negative. 4. Right fibular fracture (01/16/17) - stable, healing - Podiatry, WBAT 4. Sacral Decubitus Ulcer - c/w wound care as needed - c/w PT, pressure off-loading 5. HTN -controlled -c/w medication 6. Prediabetes (A1C- 6.0) -controlled 7. Mild Intermittent Asthma -controlled -c/w home meds 8. Thrombocytopenia - platelets 119 on 05/07/17 - platelets 99 on 05/08/17 - chronic stable 9. Depression complicated by recent concern for Serotonin Syndrome - All psychiatric medications have been held - Re-consult psych to evaluate for possible re-starting 10. Osteoporosis - Will consider re-starting medications. 11. DVT prophylaxis - Renal function returning - Heparin 5,000U, SC, Q12H
[2017-05-12] MEDS: Pantoprazole 40 mg EC Tab PO SCH (08:56)
[2017-05-12] MEDS: Metoprolol Succinate 25 mg XL Tab PO SCH (08:57)
[2017-05-12] MEDS: Morphine 30 mg SR Tab PO SCH ×2 (09:01→21:28)
--- NOTE | 2017-05-12 13:26 | CP.PCM.PN ---
Subjective - Date & Time of Evaluation Date of Evaluation: 05/12/17 Time of Evaluation: 13:24 - Subjective Subjective: Patient states wrist pain is well controlled. Tingling in fingers is still the same. No change. C/o of itching around bottom of splint. Objective - Vital Signs/Intake and Output Vital Signs (last 24 hours): Temp Pulse Resp BP Pulse Ox 97.7 F 65 20 130/64 96 05/12/17 07:44 05/12/17 08:58 05/12/17 07:44 05/12/17 08:58 05/12/17 07:44 - Medications Medications: Current Medications Acetaminophen (Tylenol 325mg Tab) 650 mg PO Q6 PRN PRN Reason: Pain, Mild (1-3) Atorvastatin Calcium (Lipitor) 40 mg PO HS [facility] Last Admin: 05/11/17 22:33 Dose: 40 mg Clotrimazole (Lotrimin 1% Cream) 1 applic TOP BID [facility] Last Admin: 05/12/17 08:55 Dose: 1 applic Docusate Sodium (Colace) 100 mg PO DAILY [facility] Last Admin: 05/12/17 08:53 Dose: 100 mg Ferrous Sulfate (Feosol) 325 mg PO BID [facility] Last Admin: 05/12/17 08:54 Dose: 325 mg Heparin Sodium (Porcine) (Heparin) 5,000 units SC Q12 [facility] PRN Reason: Protocol Last Admin: 05/12/17 08:54 Dose: 5,000 units Hydrocortisone (Hydrocortisone 2.5%) 1 applic TOP BID [facility] Last Admin: 05/12/17 09:03 Dose: 1 applic Lactic Acid (Lac-Hydrin 12% Lotion (225 G)) 1 applic TOP TID [facility] Last Admin: 05/12/17 09:02 Dose: 1 applic Lisinopril (Zestril) 40 mg PO DAILY [facility] Last Admin: 05/12/17 08:58 Dose: 40 mg Metoprolol Succinate (Toprol Xl) 25 mg PO DAILY [facility] Last Admin: 05/12/17 08:57 Dose: 25 mg Montelukast Sodium (Singulair) 10 mg PO HS [facility] Last Admin: 05/11/17 22:34 Dose: 10 mg Morphine Sulfate (Morphine Extended Release Tab) 30 mg PO Q12 [facility] Last Admin: 05/12/17 09:01 Dose: 30 mg Ondansetron HCl (Zofran Odt) 4 mg PO Q8H PRN PRN Reason: Nausea/Vomiting Last Admin: 05/11/17 18:25 Dose: 4 mg Pantoprazole Sodium (Protonix Ec Tab) 40 mg PO DAILY [facility] Last Admin: 05/12/17 08:56 Dose: 40 mg Zolpidem Tartrate (Ambien) 5 mg PO HS [facility] Last Admin: 05/11/17 22:33 Dose: 5 mg - Labs Labs: 05/09/17 05:35 05/09/17 05:35 - Extremities Exam Additional comments: dressing and splint change. Proximal aspect of wound healed, distal aspect some mild incisional erythema and swelling. Dressing/splint reapplied. elevated.+ROM fingers, thumb, decreased sensation med nerve distrib (no change) +radial pulse , fingers warm good cap refill Assessment and Plan (1) Closed fracture of left distal radius Assessment & Plan: POD#7 s/p ORIF left distal radius ancef elevate splint d/w Dr. Maya, agrees with above Status: Acute (2) Displaced fracture of left ulna styloid process, initial encounter for closed fracture Status: Acute
[2017-05-12] MEDS: ceFAZolin IV 2 gm in Dextrose 2 GM/50 ML BAG IVPB SCH ×2 (14:30→21:40)
[2017-05-13] MEDS: ceFAZolin IV 2 gm in Dextrose 2 GM/50 ML BAG IVPB SCH ×3 (05:54→21:48)
[2017-05-13] MEDS: Pantoprazole 40 mg EC Tab PO SCH (08:37)
[2017-05-13] MEDS: Metoprolol Succinate 25 mg XL Tab PO SCH (08:39)
[2017-05-13] MEDS: Morphine 30 mg SR Tab PO SCH ×3 (10:31→22:27)
[2017-05-14] MEDS: ceFAZolin IV 2 gm in Dextrose 2 GM/50 ML BAG IVPB SCH ×3 (04:56→21:44)
[2017-05-14] MEDS: Pantoprazole 40 mg EC Tab PO SCH (08:52)
[2017-05-14] MEDS: Metoprolol Succinate 25 mg XL Tab PO SCH (08:53)
[2017-05-14] MEDS: Morphine 30 mg SR Tab PO SCH ×2 (08:55→21:40)
[2017-05-15] MEDS: ceFAZolin IV 2 gm in Dextrose 2 GM/50 ML BAG IVPB SCH ×3 (05:50→21:28)
[2017-05-15] MEDS: Pantoprazole 40 mg EC Tab PO SCH (08:43)
[2017-05-15] MEDS: Morphine 30 mg SR Tab PO SCH ×2 (08:43→21:28)
[2017-05-15] MEDS: Metoprolol Succinate 25 mg XL Tab PO SCH (08:43)
[2017-05-16] MEDS: ceFAZolin IV 2 gm in Dextrose 2 GM/50 ML BAG IVPB SCH ×2 (05:30→13:05)
[2017-05-16] MEDS: Morphine 30 mg SR Tab PO SCH ×2 (08:52→21:29)
[2017-05-16] MEDS: Pantoprazole 40 mg EC Tab PO SCH (08:54)
[2017-05-16] MEDS: Metoprolol Succinate 25 mg XL Tab PO SCH (08:55)
--- NOTE | 2017-05-16 16:46 | CP.PCM.PN ---
Subjective - Date & Time of Evaluation Date of Evaluation: 05/16/17 Time of Evaluation: 15:30 - Subjective Subjective: Patient states pain in wrist is controlled. Still complains of numbness/ tingling. Tolerating PT well. Objective - Vital Signs/Intake and Output Vital Signs (last 24 hours): Temp Pulse Resp BP Pulse Ox 98.1 F 61 20 147/90 97 05/16/17 15:59 05/16/17 15:59 05/16/17 15:59 05/16/17 15:59 05/16/17 15:59 - Medications Medications: Current Medications Acetaminophen (Tylenol 325mg Tab) 650 mg PO Q6 PRN PRN Reason: Pain, Mild (1-3) Atorvastatin Calcium (Lipitor) 40 mg PO HS [facility] Last Admin: 05/15/17 21:29 Dose: 40 mg Clotrimazole (Lotrimin 1% Cream) 1 applic TOP BID [facility] Last Admin: 05/16/17 16:35 Dose: 1 applic Docusate Sodium (Colace) 100 mg PO DAILY [facility] Last Admin: 05/16/17 08:54 Dose: 100 mg Ferrous Sulfate (Feosol) 325 mg PO DAILY [facility] Last Admin: 05/16/17 08:55 Dose: 325 mg Hydrocortisone (Hydrocortisone 2.5%) 1 applic TOP BID [facility] Last Admin: 05/16/17 16:36 Dose: Not Given Lactic Acid (Lac-Hydrin 12% Lotion (225 G)) 1 applic TOP TID [facility] Last Admin: 05/16/17 16:35 Dose: 1 applic Lisinopril (Zestril) 40 mg PO DAILY [facility] Last Admin: 05/16/17 08:55 Dose: 40 mg Metoprolol Succinate (Toprol Xl) 25 mg PO DAILY [facility] Last Admin: 05/16/17 08:55 Dose: 25 mg Montelukast Sodium (Singulair) 10 mg PO HS [facility] Last Admin: 05/13/17 21:50 Dose: 10 mg Morphine Sulfate (Morphine Extended Release Tab) 30 mg PO Q12 [facility] Last Admin: 05/16/17 08:52 Dose: 30 mg Pantoprazole Sodium (Protonix Ec Tab) 40 mg PO DAILY [facility] Last Admin: 05/16/17 08:54 Dose: 40 mg Zolpidem Tartrate (Ambien) 5 mg PO [facility] Last Admin: 05/16/17 00:04 Dose: 5 mg - Labs Labs: 05/09/17 05:35 05/09/17 05:35 - Extremities Exam Additional comments: Left wrist dressing changed. Incision intact, erythema has resolved, incision healing well. +radial pulse, no change in sensation, +ROM fingers improving, swelling improving Assessment and Plan (1) Closed fracture of left distal radius Assessment & Plan: POD#11 s/p left distal radius ORIF -orthopedically stable -ancef stopped, incision healing well -maintain splint, keep dry and intact -f/u within [address] Maya in office call for appt -d/w Dr. De La Rosa, agrees with abvoe Status: Acute (2) Displaced fracture of left ulna styloid process, initial encounter for closed fracture Status: Acute
[2017-05-17] MEDS: Metoprolol Succinate 25 mg XL Tab PO SCH (08:30)
[2017-05-17] MEDS: Pantoprazole 40 mg EC Tab PO SCH (08:30)
[2017-05-17] MEDS: Morphine 30 mg SR Tab PO SCH (08:31)
--- NOTE | 2017-05-17 09:55 | CP.PCM.DIS ---
Provider - Provider Date of Admission: 05/06/17 22:05 Attending physician: Peri Lynch MD Primary care physician: Rosa Bustamante Time Spent in preparation of Discharge (in minutes): 40 Hospital Course - Lab Results Lab Results: Most Recent Lab Values WBC 3.3 K/uL (4.8-10.8) L 05/09/17 05:35 RBC 3.06 Mil/uL (3.80-5.20) L 05/09/17 05:35 Hgb 8.0 g/dL (12.0-16.0) L 05/09/17 05:35 Hct 25.6 % (34.0-47.0) L 05/09/17 05:35 MCV 83.9 fl (81.0-99.0) 05/09/17 05:35 MCH 26.3 pg (27.0-31.0) L 05/09/17 05:35 MCHC 31.3 g/dL (33.0-37.0) L 05/09/17 05:35 RDW 18.0 % (11.5-14.5) H 05/09/17 05:35 Plt Count 93 K/uL (130-400) L D 05/09/17 05:35 MPV 8.6 fl (7.2-11.7) 05/07/17 11:59 Neut % (Auto) 71.8 % (50.0-75.0) 05/07/17 11:59 Lymph % (Auto) 18.4 % (20.0-40.0) L 05/07/17 11:59 [place] % (Auto) 7.4 % (0.0-10.0) 05/07/17 11:59 Eos % (Auto) 1.6 % (0.0-4.0) 05/07/17 11:59 Baso % (Auto) 0.8 % (0.0-2.0) 05/07/17 11:59 Neut # 3.2 K/uL (1.8-7.0) 05/07/17 11:59 Lymph # 0.8 K/uL (1.0-4.3) L 05/07/17 11:59 [place] # 0.3 K/uL (0.0-0.8) 05/07/17 11:59 Eos # 0.1 K/uL (0.0-0.7) 05/07/17 11:59 Baso # 0.0 K/uL (0.0-0.2) 05/07/17 11:59 Sodium 145 mmol/l (132-148) 05/09/17 05:35 Potassium 4.1 MMOL/L (3.6-5.0) 05/09/17 05:35 Chloride 111 mmol/L (98-107) H 05/09/17 05:35 Carbon Dioxide 23 mmol/L (22-30) 05/09/17 05:35 Anion Gap 15 (10-20) 05/09/17 05:35 BUN 16 mg/dl (7-17) 05/09/17 05:35 Creatinine 1.1 mg/dl (0.7-1.2) 05/09/17 05:35 Est GFR ( Amer) 59 05/09/17 05:35 Est GFR (Non-Af Amer) 49 05/09/17 05:35 Random Glucose 112 mg/dL (65-105) H 05/09/17 05:35 Calcium 8.3 mg/dL (8.4-10.2) L 05/09/17 05:35 Total Bilirubin 0.5 mg/dl (0.2-1.3) 05/07/17 11:59 AST 14 U/L (14-36) 05/07/17 11:59 ALT 22 U/L (9-52) 05/07/17 11:59 Alkaline Phosphatase 55 U/L (38-126) 05/07/17 11:59 Total Protein 6.2 G/DL (6.3-8.2) L 05/07/17 11:59 Albumin 3.2 g/dL (3.5-5.0) L 05/07/17 11:59 Globulin 3.1 gm/dL (2.2-3.9) 05/07/17 11:59 Albumin/Globulin Ratio 1.0 (1.0-2.1) 05/07/17 11:59 Vitamin B12 350 pg/mL (239-931) 05/08/17 16:14 Stool Occult Blood Negative (NEGATIVE) 05/09/17 11:03 Blood Type B POSITIVE 05/08/17 16:14 Antibody Screen Negative 05/08/17 16:14 BBK History Checked Patient has bt 05/08/17 16:14 - Hospital Course Hospital Course: 71 y/o F was admitted to TCU for rehabilitation S/P Left radius ORIF. Pt underwent physical therapy daily. Challenges for her recuperation were a prior RIGHT CVA, recent but healed RIGHT fibular fracture, and then a LEFT radial fracture. - Pt complained of nausea while admission, Zofran was provided and PO Iron was decreased from BID to once daily. Nausea improved over the following days. - Pt remained afebrile and tolerating PO. Pt discharged today, stable. Pt will follow up with her orthopedist next week. Appointment was made for 06/07/17 at 09:20am. Pharmacy was contacted and refill orders were still available. Pt provided with Rx for: --Morphine ER 30mg PO Q12 --Percocet 10/325mg PO Q12 PRN, --Zolpidem 5mg PO HS. - Date & Time of H&P Date of H&P: 05/07/17 Time of H&P: 08:43 Discharge Exam - Head Exam Head Exam: ATRAUMATIC, NORMAL INSPECTION - Eye Exam Eye Exam: EOMI, Normal appearance - ENT Exam ENT Exam: Mucous Membranes Moist - Neck Exam Neck exam: Full Rom - Respiratory Exam Respiratory Exam: Clear to PA & Lateral, NORMAL BREATHING PATTERN - Cardiovascular Exam Cardiovascular Exam: REGULAR RHYTHM, +S1, +S2 - GI/Abdominal Exam GI & Abdominal Exam: Normal Bowel Sounds, Soft. absent: Distended, Guarding, Tenderness - Neurological Exam Neurological exam: Alert, Oriented x3 Discharge Plan - Discharge Medications Prescriptions: Acetaminophen/Oxycodone Hydr [Percocet 10/325 mg Tab] 1 tab PO Q12 PRN #10 tab PRN Reason: Pain, Moderate (4-7) Morphine [Morphine Extended Release Tab] 30 mg PO Q12 #60 tabsr Zolpidem [Ambien] 5 mg PO HS #30 tab - Follow Up Plan Condition: GOOD Disposition: HOME/ ROUTINE Instructions: Wrist Injury (DC), ORIF of an Arm Fracture (DC), Fall Prevention (DC), ORIF (DC) Additional Instructions: -F/U with PMD Dr Burton on 06/07/17 at 09:20am. -Continue with home medications as prescribed. -F/U with orthopedist within 1 week. -Fall and ER precautions discussed. Referrals: Nichole Burton MD [Staff Provider] - Cliff Maya MD [Medical Doctor] -
[2017-05-17 17:20] VITALS: BP 173/72; PULSE 59; TEMP 97.7; O2SAT 98
== END 2017-05-17 17:55 | disposition home health service (06) | DRG 559 ==
LOC: H.TCU 22:05
PROVIDERS: ADMIT Family Medicine Geriatric Medicine; ATTEND Family Medicine Geriatric Medicine
PROC: F07Z9FZ Gait Training/Functional Ambulation Treatment using Assistive, Adaptive, Supportive or Protective Equipment (ICD-10-PCS; principal; 2017-05-06)
PROC: F08Z4FZ Home Management Treatment using Assistive, Adaptive, Supportive or Protective Equipment (ICD-10-PCS; 2017-05-06)
PROC: F07K6FZ Therapeutic Exercise Treatment of Musculoskeletal System - Upper Back / Upper Extremity using Assistive, Adaptive, Supportive or Protective Equipment (ICD-10-PCS; 2017-05-07)
DX: S52.592D Other fractures of lower end of left radius, subsequent encounter for closed fracture with routine healing (principal); L89.154 Pressure ulcer of sacral region, stage 4; D69.6 Thrombocytopenia, unspecified; E11.42 Type 2 diabetes mellitus with diabetic polyneuropathy; L89.619 Pressure ulcer of right heel, unspecified stage; D63.8 Anemia in other chronic diseases classified elsewhere; M81.0 Age-related osteoporosis without current pathological fracture; E78.5 Hyperlipidemia, unspecified; I10 Essential (primary) hypertension; I25.2 Old myocardial infarction; J45.20 Mild intermittent asthma, uncomplicated; F32.9 Major depressive disorder, single episode, unspecified; F41.9 Anxiety disorder, unspecified; Z87.81 Personal history of (healed) traumatic fracture; Z86.73 Personal history of transient ischemic attack (TIA), and cerebral infarction without residual deficits; Z93.3 Colostomy status; Z98.0 Intestinal bypass and anastomosis status; Z98.1 Arthrodesis status; Z90.710 Acquired absence of both cervix and uterus; Z87.01 Personal history of pneumonia (recurrent); Z79.82 Long term (current) use of aspirin; Z88.2 Allergy status to sulfonamides; Z91.041 Radiographic dye allergy status

== ENCOUNTER 2017-08-18 11:40 | Inpatient (IN) | payer MEDICARE, MEDICAID ==
[2017-08-18 11:43] VITALS: BMI 34.9
[2017-08-18 13:10] LABS: HEMOGLOBIN 11.2 g/dL (12.0-16.0); MEAN CELL VOLUME 80.4 fl (81.0-99.0); MEAN CORPUSCULAR HEMOGLOBIN 25.8 pg (27.0-31.0); MEAN CORPUSCULAR HGB CONC 32.1 g/dL (33.0-37.0); RBC 4.35 Mil/uL (3.80-5.20); RED CELL DISTRIBUTION WIDTH 15.9 % (11.5-14.5); WHITE BLOOD COUNT 4.9 K/uL (4.8-10.8)
[2017-08-18 13:11] LABS: SQUAMOUS EPITHIAL < 1 /hpf (0-5); URINE BACTERIA RARE (<OCC); URINE BILIRUBIN NEGATIVE (NEGATIVE); URINE BLOOD NEGATIVE (NEGATIVE); URINE CLARITY CLEAR (Clear); URINE COLOR YELLOW (YELLOW); URINE GLUCOSE (UA) NEG (Normal); URINE LEUKOCYTE ESTERASE NEG Leu/uL (Negative); URINE PROTEIN NEGATIVE (NEGATIVE); URINE UROBILINOGEN 0.2-1.0 mg/dL (0.2-1.0)
[2017-08-18 13:17] LABS: ALB/GLOB RATIO 1.2 (1.0-2.1); ALBUMIN 3.9 g/dL (3.5-5.0); ALT/SGPT 31 U/L (9-52); AST/SGOT 19 U/L (14-36); BLOOD UREA NITROGEN 18 mg/dl (7-17); CALCIUM 9.3 mg/dL (8.4-10.2); GFR AFRICAN-AMERICAN > 60; GFR NON-AFRICAN AMERICAN > 60
[2017-08-18 13:25] LABS: BARBITURATES, UR NEGATIVE (NEGATIVE); BENZODIAZEPINES, UR NEGATIVE (NEGATIVE); OPIATES, UR POSITIVE (NEGATIVE); PHENCYCLIDINE, UR NEGATIVE (NEGATIVE)
--- NOTE | 2017-08-18 15:29 | ED PDOC ---
HPI: Psych/Substance Abuse Time Seen by Provider: 08/18/17 11:56 Chief Complaint (Nursing): Psychiatric Evaluation Chief Complaint (Provider): Depression ED Caveat: Acuity of Condition History Per: Patient History/Exam Limitations: no limitations Onset/Duration Of Symptoms: Days Additional Complaint(s): Pt with history of HTN, DM and depression presents with worsening depression for a few weeks. Pt denies SI/HI but states she is planning on dying. PT states she was on medication in the past but was taken off after [place]. Pt also reports decreased appetite and some nausea intermittently over the last few weeks. Past Medical History Reviewed: Historical Data, Nursing Documentation, Vital Signs Vital Signs: Last Vital Signs Temp 99.8 F H 08/18/17 11:43 Pulse 77 08/18/17 11:43 Resp 16 08/18/17 11:43 BP 181/78 H 08/18/17 11:43 Pulse Ox 97 08/18/17 11:43 - Medical History PMH: Anemia, Anxiety, Arthritis, Asthma, Depression, Diabetes (IDDM), Diverticulitis (s/p Erinn procedure), Fractures, HTN, Hypercholesterolemia, Hyperlipidemia, Pneumonia, TIA Denies: CHF, COPD, HIV, Hypothyroidism, Chronic Kidney Disease, Rheumatoid Arthritis - Surgical History Surgical History: Back Surgery, Cholecystectomy - Family History Family History: States: Unknown Family Hx - Home Medications Home Medications: Ambulatory Orders Medication Instructions Recorded Atorvastatin [Lipitor] 40 mg PO HS 06/06/16 Ergocalciferol [Drisdol 50,000 1 cap PO QWK 06/06/16 Intl Units Cap] Montelukast [Singulair] 10 mg PO HS 06/06/16 Pantoprazole Sodium [Protonix] 40 mg PO DAILY 06/06/16 Alendronate Sodium [Binosto] 70 mg PO QWK 04/15/17 Acetaminophen [Tylenol 325mg tab] 650 mg PO Q6 PRN tab 04/19/17 Docusate [Colace] 100 mg PO DAILY cap 04/19/17 Ferrous Sulfate [Feosol] 325 mg PO DAILY tab 04/19/17 Lisinopril [Zestril] 40 mg PO DAILY tab 04/19/17 Hydrocortisone 2.5% 1 applic TOP BID oint 05/04/17 Metoprolol Succinate [Toprol XL] 25 mg PO DAILY tab 05/04/17 Acetaminophen/Oxycodone Hydr 1 tab PO Q12 PRN #10 tab 05/17/17 [Percocet 10/325 mg Tab] Morphine [Morphine Extended 30 mg PO Q12 #60 tabsr 05/17/17 Release Tab] Zolpidem [Ambien] 5 mg PO HS #30 tab 05/17/17 - Allergies Allergies/Adverse Reactions: Allergies Allergy/AdvReac Type Severity Reaction Status Date / Time iodine Allergy RASH Verified 04/23/17 07:10 Sulfa (Sulfonamide Allergy RASH Verified 04/27/17 17:35 Antibiotics) Review of Systems ROS Statement: Except As Marked, All Systems Reviewed And Found Negative Constitutional: Negative for: Fever, Chills Gastrointestinal: Positive for: Nausea (Not current ). Negative for: Vomiting, Abdominal Pain Genitourinary Female: Negative for: Dysuria Physical Exam - Reviewed Nursing Documentation Reviewed: Yes Vital Signs Reviewed: Yes - Physical Exam Appears: Positive for: Well, Non-toxic, No Acute Distress Head Exam: Positive for: ATRAUMATIC, NORMAL INSPECTION, NORMOCEPHALIC Skin: Positive for: Normal Color, Warm, DRY Eye Exam: Positive for: Normal appearance ENT: Positive for: Normal ENT Inspection Neck: Positive for: Normal, Painless ROM Cardiovascular/Chest: Positive for: Regular Rate, Rhythm Respiratory: Positive for: CNT, Normal Breath Sounds Gastrointestinal/Abdominal: Positive for: Normal Exam, Soft. Negative for: Tenderness Back: Positive for: Normal Inspection Extremity: Positive for: Normal ROM Neurologic/Psych: Positive for: Alert, Oriented - Laboratory Results Result Diagrams: 08/18/17 13:00 08/18/17 13:00 - ECG O2 Sat by Pulse Oximetry: 97 Medical Decision Making Medical Decision Making: Crisis evaluation completed. Labs normal. Urine without sign of infection. CXR - No acute cardiopulmonary disease. Disposition - Clinical Impression Clinical Impression: Depression - Patient ED Disposition Is Patient to be Admitted: Yes - Disposition Disposition Time: 15:27 Condition: STABLE - Pt Status Changed To: Hospital Disposition Of: Inpatient - Admit Certification Admit to Inpatient:: After my assessment, the patient will require hospitalization for at least two midnights. This is because of the severity of symptoms shown, intensity of services needed, and/or the medical risk in this patient being treated as an outpatient.
--- NOTE | 2017-08-18 16:06 | RAD ---
HISTORY: admission, rea COMPARISON: 04/15/2017. FINDINGS: LUNGS: No active pulmonary disease. PLEURA: No significant pleural effusion identified, no pneumothorax apparent. CARDIOVASCULAR: No radiographic findings to suggest acute or significant cardiovascular disease. OSSEOUS STRUCTURES: No significant abnormalities. VISUALIZED UPPER ABDOMEN: Normal. OTHER FINDINGS: None. IMPRESSION: No active disease. No significant interval change compared to the prior examination(s).
[2017-08-18 17:58] VITALS: O2SAT 97
[2017-08-18] MEDS ORDERED: Bismuth Subsalicylate 262 mg/15 ml Sus (240 ml) PO PRN (20:35)
[2017-08-18] MEDS ORDERED: Magnesium Hydroxide Susp 30 ml UD PO PRN (20:35)
[2017-08-18] MEDS ORDERED: Alum-Mag Hydrox-Simethicone Susp (30 mL) PO PRN (20:35)
[2017-08-18] MEDS ORDERED: Oxycodone/Acetaminophen 5/325 mg Tab PO PRN (21:14)
[2017-08-18] MEDS ORDERED: Ergocalciferol 50,000 Intl Units Cap PO SCH (21:15)
--- NOTE | 2017-08-18 21:44 | PCM.BM ---
<PatsyfabiánJosep - Last Filed: 08/18/17 21:42> Treatment Plan Problems - Problems identified on initial assessmt Hopelessness/Helplessness Date Initiated: 08/18/17 Time Initiated: 21:43 Assessment reference: NA Status: Active Treatment assets and liabiliti Patient Assests: good support system, negotiates basic needs Patient Liabilities: live alone, medical problems - Milieu Protocol Maintain good personal hygiene: daily Encourage regular showers, daily Remind patient to perform daily oral care, daily Assist patient to perform ADL's Conduct patient checks and document Observation sheet: Q15 minutes Maintain personal safety: every shift Educate patient to report safety concerns to staff, every shift Monitor environment for contraband/sharps Medication safety: Monitor for expected outcome, potential side effects: every shift, Assess barriers to learning: every shift, Assess readiness for medication education: every shift <Katherine Muhammad - Last Filed: 08/19/17 11:49> - Diagnosis (1) Major depressive disorder Status: Acute Interventions: Medication management, Individual and group therapy, Psychoeducation 08/19/17 11:49 <Nighat Pena - Last Filed: 08/19/17 12:38> Family Contact Family involvement: Family/SO is involved Family contact: Patient agrees to contact, Family has been contacted by patient , Telephone contact initiated by staff Family contact name: Kalpana - daughter Family contacted how many times per week?: 1 - Outside Agency [facility] - Dr. Josephine MD Care involvment: Following patient during stay, Information-sharing Agency contact number: [phone] [facility] Care involvment: Information-sharing Agency contact name: [facility] Agency contact number: [phone] - Goals for Treatment Patient goals for treatment: Pt to be encouraged to attend activity and clinical groups 3-5x per week to identify at least 2 contributing factors to depression and suicide attempt. Psycho-education to be provided to patient/ family regarding benefits of medications and treatment adherence. Pt to be encouraged to participate in group milieu to develop effective coping skills to reduce depression and free of suicide ideation. Coordinate discharge resource needs by providing referral for psychiatric treatment follow up in the community. Discharge/Continuing Care - Education Needs Education Needs: Patient Medication, Patient Diagnosis/Disease Process, Patient Coping Skills, Patient Community resources, Patient Uses of Medical Equipment, Patient Personal Hygiene/Grooming, Patient Aftercare Safety Plan - Discharge Discharge Criteria: Tolerates medication w/o severe side effects, Normal sleep pattern, Ability to care for self, Reduction of target symptoms Discharge to:: Home - Additional Comments 08/19/17 12:33 Pt seen and discussed in team meeting. Reason for admission reviewed and discussed. Pt reported being referred to the ED by her PMD, Dr. Josephine MD for medication evaluation and "regulation." Pt reported feeling depressed due to medical issues and inability to leave her home. Pt reported she does not wish to remain in the hospital as "I was blindsided when i came in here." Pt reported "they didn't explain to me what i couldn't have and can have." Pt reported she feels likes she is in [facility]ci and wants to be discharged. $8 hour notice of intent explained to pt and pt verbalized understanding and signed form. Pt reported she would like to follow up with outpatient psychiatric services. Pt's medications reviewed. Pt's social and medical issues reviewed. Tx plan reviewed. Pt provided video games storywriter with consent to contact daughter, Kalpana and [facility]. SW to continue to follow case. - Treatment Team Participation Discussed with Family/SO: No Was Patient/Family/SO present at Treatment Team Meeting: Yes
[2017-08-18] MEDS: Morphine 30 mg SR Tab PO SCH (21:54)
[2017-08-18] MEDS ORDERED: ALENDRONATE 70 MG TAB PO SCH (22:18)
--- NOTE | 2017-08-18 22:21 | CARD ---
APPROVED REPORT EKG Measurement Heart [id number] <Conclusion> Normal sinus rhythm Incomplete right bundle branch block Borderline ECG
--- NOTE | 2017-08-18 22:40 | CP.PCM.CON ---
History of Present Illness - History of Present Illness History of Present Illness: Medicine Consult Note PMD: Dr Burton 72 y/o F with PMhx of depression, chronic pain, osteoporosis, diverticulitis, falls, Controlled DM and HTN was admitted to hosp for eval of depression. Patient denies SI, HI, or hallucinations. She hasnt been on any psychotropic drugs since serotonin syndrome few months ago. Patient takes multiple medications for chronic pain, insomnia, osteoporosis and HTN. Her DM has been controlled with the last A1c in 04/2017=6. She is not on any med for DM at this time. Patient denies CP, palpitations, SOB, headache. She c/o persistent L/UE pain/weakness since recent Hx of Fx. She has also Hx of chronic pain for what she takes ER Morphine BID and Percocet in between as needed. Patient states she is compliant with all her meds. Patient is concerned that she might get worse of her depression since she doesn't have access to TV or romeo phone while in the unit. Review of Systems - Review of Systems All systems: reviewed and no additional remarkable complaints except (Those described on HPI) Past Patient History - Infectious Disease Hx of Infectious Diseases: None - Past Medical History & Family History Past Medical History?: Yes - Past Social History Smoking Status: Never Smoked - CARDIAC Hx Congestive Heart Failure: No Hx Hypercholesterolemia: Yes Hx Hypertension: Yes - PULMONARY Hx Asthma: Yes Hx Chronic Obstructive Pulmonary Disease (COPD): No Hx Pneumonia: Yes - NEUROLOGICAL Hx Transient Ischemic Attacks (TIA): Yes - HEENT Hx HEENT Problems: No Other/Comment: GLASSES - NEARSIGHTEDNESS. - RENAL Hx Chronic Kidney Disease: No - ENDOCRINE/METABOLIC Hx Hypothyroidism: No - HEMATOLOGICAL/ONCOLOGICAL Hx Anemia: Yes Hx Human Immunodeficiency Virus (HIV): No - INTEGUMENTARY Hx Dermatological Problems: No Hx Cellulitis: Yes (BLE) Other/Comment: Sacral decubiti, RIGHT HEEL (DTI) - MUSCULOSKELETAL/RHEUMATOLOGICAL Hx Arthritis: Yes Hx Fractures: Yes Hx Rheumatoid Arthritis: No - GASTROINTESTINAL Hx Diverticulitis: Yes (s/p Erinn procedure) - GENITOURINARY/GYNECOLOGICAL Hx Sexually Transmitted Disorders: No - PSYCHIATRIC Hx Anxiety: Yes Hx Depression: Yes - SURGICAL HISTORY Hx Surgeries: Yes Hx Cholecystectomy: Yes - ANESTHESIA Hx Anesthesia: Yes Hx Anesthesia Reactions: No Hx Malignant Hyperthermia: No Meds Allergies/Adverse Reactions: Allergies Allergy/AdvReac Type Severity Reaction Status Date / Time iodine Allergy RASH Verified 04/23/17 07:10 Sulfa (Sulfonamide Allergy RASH Verified 04/27/17 17:35 Antibiotics) - Medications Medications: Current Medications Acetaminophen (Tylenol 325mg Tab) 650 mg PO Q4 PRN PRN Reason: Pain, moderate (4-7) Al Hydrox/Mg Hydrox/Simethicone (Maalox Plus 30 Ml) 30 ml PO Q4 PRN PRN Reason: Dyspepsia Aspirin (Ecotrin) 81 mg PO HS [facility] Atorvastatin Calcium (Lipitor) 40 mg PO HS [facility] Last Admin: 08/18/17 21:56 Dose: 40 mg Bismuth Subsalicylate (Pepto-Bismol) 524 mg PO Q4 PRN PRN Reason: Diarrhea Docusate Sodium (Colace) 100 mg PO DAILY [facility] Ergocalciferol (Drisdol 50,000 Intl Units Cap) 1 cap PO QWK [facility] Ferrous Sulfate (Feosol) 325 mg PO DAILY [facility] Home Med (Acetaminophen/Oxycodone Hydr [Percocet 10/325 Mg Tab]) 1 tab PO Q12 PRN PRN Reason: Pain, moderate (4-7) Home Med (Alendronate Sodium [Binosto]) 70 mg PO QWK [facility] Lisinopril (Zestril) 40 mg PO DAILY [facility] Lorazepam (Ativan) 0.5 mg PO HS PRN PRN Reason: Insomnia Stop: 09/01/17 20:36 Lorazepam (Ativan) 0.5 mg PO Q6 PRN PRN Reason: Anixety/Agitation Stop: 09/01/17 20:36 Magnesium Hydroxide (Milk Of Magnesia) 30 ml PO HS PRN PRN Reason: Constipation Morphine Sulfate (Morphine Extended Release Tab) 30 mg PO Q12 [facility] Last Admin: 08/18/17 21:54 Dose: 30 mg Ondansetron HCl (Zofran Tab) 4 mg PO Q6 PRN PRN Reason: Nausea/Vomiting Pantoprazole Sodium (Protonix Ec Tab) 40 mg PO DAILY [facility] Zolpidem Tartrate (Ambien) 5 mg PO HS [facility] Last Admin: 08/18/17 21:56 Dose: 5 mg Physical Exam - Constitutional Appears: Non-toxic, No Acute Distress - Eye Exam Eye Exam: EOMI - ENT Exam ENT Exam: Mucous Membranes Moist - Respiratory Exam Respiratory Exam: Clear to Auscultation Bilateral, NORMAL BREATHING PATTERN. absent: Respiratory Distress - Cardiovascular Exam Cardiovascular Exam: +S1, +S2. absent: Gallop - GI/Abdominal Exam GI & Abdominal Exam: Soft. absent: Rigid, Tenderness - Extremities Exam Extremities exam: Positive for: pedal pulses present. Negative for: calf tenderness, tenderness - Neurological Exam Neurological exam: Alert, Oriented x3 - Psychiatric Exam Psychiatric exam: Anxious, Depressed - Skin Skin Exam: Normal Color, Warm Results - Vital Signs Recent Vital Signs: Last Vital Signs Temp 99 F 08/18/17 18:50 Pulse 70 08/18/17 18:50 Resp 16 08/18/17 18:50 BP 152/73 H 08/18/17 18:50 Pulse Ox 97 08/18/17 17:57 - Labs Result Diagrams: 08/18/17 13:00 08/18/17 13:00 Labs: Laboratory Results - last 24 hr 08/18/17 08/18/17 08/18/17 13:00 13:00 13:00 WBC 4.9 RBC 4.35 Hgb 11.2 L D Hct 35.0 MCV 80.4 L D MCH 25.8 L MCHC 32.1 L RDW 15.9 H Plt Count 108 L Sodium 145 Potassium 4.5 Chloride 105 Carbon Dioxide 23 Anion Gap 22 H BUN 18 H Creatinine 0.9 Est GFR ( Amer) > 60 Est GFR (Non-Af Amer) > 60 Random Glucose 114 H Calcium 9.3 Total Bilirubin 1.1 AST 19 ALT 31 Alkaline Phosphatase 67 Total Protein 7.1 Albumin 3.9 Globulin 3.2 Albumin/Globulin Ratio 1.2 Urine Color Urine Clarity Urine pH Ur Specific [place]de Urine Protein Urine Glucose (UA) Urine Ketones Urine Blood Urine Nitrate Urine Bilirubin Urine Urobilinogen Ur Leukocyte Esterase Urine RBC (Auto) Urine Microscopic WBC Ur Squamous Epith Cells Urine Bacteria Urine Opiates Screen Positive H Urine Methadone Screen Negative Ur Barbiturates Screen Negative Ur Phencyclidine Scrn Negative Ur Amphetamines Screen Negative U Benzodiazepines Scrn Negative U Oth Cocaine Metabols Negative U Cannabinoids Screen Negative Alcohol, Quantitative < 10 08/18/17 13:00 WBC RBC Hgb Hct MCV MCH MCHC RDW Plt Count Sodium Potassium Chloride Carbon Dioxide Anion Gap BUN Creatinine Est GFR ( Amer) Est GFR (Non-Af Amer) Random Glucose Calcium Total Bilirubin AST ALT Alkaline Phosphatase Total Protein Albumin Globulin Albumin/Globulin Ratio Urine Color Yellow Urine Clarity Clear Urine pH 7.0 Ur Specific [place]de 1.013 Urine Protein Negative Urine Glucose (UA) Neg Urine Ketones Negative Urine Blood Negative Urine Nitrate Negative Urine Bilirubin Negative Urine Urobilinogen 0.2-1.0 Ur Leukocyte Esterase Neg Urine RBC (Auto) 2 Urine Microscopic WBC 2 Ur Squamous Epith Cells < 1 Urine Bacteria Rare Urine Opiates Screen Urine Methadone Screen Ur Barbiturates Screen Ur Phencyclidine Scrn Ur Amphetamines Screen U Benzodiazepines Scrn U Oth Cocaine Metabols U Cannabinoids Screen Alcohol, Quantitative Assessment & Plan - Assessment and Plan (Free Text) Assessment: 72 y/o with Hx of chronic pain, HTN and depression admitted for evaluation of Depression Chronic depression as per Psychiatry management No Current SI or HI Chronic pain C/W ER morphine BID and PRN percocet Needs PT/OT and Pain management as outpatient HTN Chronic Stable C/W Lisinopril and Amlodipine PO DM2 Chronic Controlled Last A1c 6 F/U HgbA1c Diet control Accuchecks AM Osteoporosis C/W Vit D and Weekly Alendronate Insomnia C/W Ambien HS GERD C/W Pantoprazole daily
[2017-08-19 08:05] LABS: IRON 54 ug/dL (37-170)
[2017-08-19 08:08] LABS: T4 10.9 ug/dl (5.5-11.0)
[2017-08-19 08:27] LABS: % IRON SATURATION 20 % (20-55); TOTAL IRON BINDING CAPACITY 265 ug/dL (250-450)
[2017-08-19] MEDS: Morphine 30 mg SR Tab PO SCH ×2 (08:57→21:07)
[2017-08-19] MEDS: Pantoprazole 40 mg EC Tab PO SCH (09:00)
--- NOTE | 2017-08-19 12:14 | PCM.PSYCH ---
Initial Psychiatric Evaluation - Initial Psychiatric Evaluation Type of Admission: Voluntary Legal Status: Capacity Chief Complaint (in patient's own words): "I'm depressed." Patient's Reaction to Hospitalization: CC: "I'm depressed." HPI: 72 yo female w/ history of depression, referred by her primary doctor due to depression. Patient was previously on Zoloft, Wellbutrin and Cymbalta simultaneously, but these were discontinued several months ago due to concerns that she may have had symptoms of serotonin syndrome. Patient reports that she is feeling depressed due to her many medical problems, but states that she no longer wants to be in the psychiatric hospital and submitted a 48 hour request to be discharged. She reports sleep/appetite disturbances. No AH/VH/paranoia/ SI/HI. She would like to have retrial of Zoloft because she believes that was most helpful in treating her depression in the past. PPHx: H/o of psychiatric tx w/ Wellbutrin, Zoloft and Duloxetine. No h/o suicide attempts or inpatient psychiatric admission. PMHx: hypertension, hypercholesterolemia, multiple fractures, DM, TIA, chronic pain, osteoporosis, diverticulitis, falls FamHx: aunt-depression; denies substance use SocHx: No drugs, tobacco or ETOH. +1 daughter in [place]. 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 lived alone with 3 cats. PSurgHx: Colostomy, L/S fusion L1-S1 Allergies: iodine, sulfa-rash Current Medications: Active Medications Generic Name Dose Route Start Last Admin Trade Name Leobardoq PRN Reason Stop Dose Admin Acetaminophen 650 mg 08/18/17 20:35 Tylenol 325mg Tab PO Q4 PRN Pain, moderate (4-7) Al Hydrox/Mg Hydrox/Simethicone 30 ml 08/18/17 20:35 Maalox Plus 30 Ml PO Q4 PRN Dyspepsia Alendronate Sodium 70 mg 08/18/17 22:18 Fosamax PO QWK [facility] Aspirin 81 mg 08/18/17 22:15 08/18/17 22:40 Ecotrin PO 81 mg HS REEMA Administration Atorvastatin Calcium 40 mg 08/18/17 22:00 08/18/17 21:56 Lipitor PO 40 mg HS REEMA Administration Bismuth Subsalicylate 524 mg 08/18/17 20:35 Pepto-Bismol PO Q4 PRN Diarrhea Docusate Sodium 100 mg 08/19/17 09:00 08/19/17 08:59 Colace PO 100 mg DAILY REEMA Administration Ergocalciferol 1 cap 08/18/17 21:15 Drisdol 50,000 Intl Units Cap PO QWK REEMA Ferrous Sulfate 325 mg 08/19/17 09:00 08/19/17 08:59 Feosol PO 325 mg DAILY REEMA Administration Lisinopril 40 mg 08/19/17 09:00 08/19/17 09:01 Zestril PO 40 mg DAILY REEMA Administration Lorazepam 0.5 mg 08/18/17 20:35 Ativan PO 09/01/17 20:36 HS PRN Insomnia Lorazepam 0.5 mg 08/18/17 20:35 Ativan PO 09/01/17 20:36 Q6 PRN Anixety/Agitation Magnesium Hydroxide 30 ml 08/18/17 20:35 Milk Of Magnesia PO HS PRN Constipation Morphine Sulfate 30 mg 08/18/17 21:15 08/19/17 08:57 Morphine Extended Release Tab PO 30 mg Q12 REEMA Administration Ondansetron HCl 4 mg 08/18/17 21:19 08/19/17 09:19 Zofran Tab PO 4 mg Q6 PRN Administration Nausea/Vomiting Oxycodone/Acetaminophen 2 tab 08/18/17 21:14 Percocet 5/325 Mg Tab PO Q12 PRN Pain, moderate (4-7) Pantoprazole Sodium 40 mg 08/19/17 09:00 08/19/17 09:00 Protonix Ec Tab PO 40 mg DAILY REEMA Administration Sertraline HCl 25 mg 08/19/17 11:15 Zoloft PO DAILY REEMA Zolpidem Tartrate 5 mg 08/18/17 22:00 08/18/17 21:56 Ambien PO 5 mg HS REEMA Administration Past Psychiatric History - Past Psychiatric History Pertinent Medical Hx (Current Medical&Sleep Prob, Allergies): Allergies Allergy/AdvReac Type Severity Reaction Status Date / Time iodine Allergy RASH Verified 04/23/17 07:10 Sulfa (Sulfonamide Allergy RASH Verified 04/27/17 17:35 Antibiotics) Atorvastatin [Lipitor] 40 mg PO HS 06/06/16 Ergocalciferol [Drisdol 50,000 Intl Units Cap] 1 cap PO QWK 06/06/16 Pantoprazole Sodium [Protonix] 40 mg PO DAILY 06/06/16 Alendronate Sodium [Binosto] 70 mg PO QWK 04/15/17 Docusate [Colace] 100 mg PO DAILY cap 04/19/17 Ferrous Sulfate [Feosol] 325 mg PO DAILY tab 04/19/17 Lisinopril [Zestril] 40 mg PO DAILY tab 04/19/17 Acetaminophen/Oxycodone Hydr [Percocet 10/325 mg Tab] 1 tab PO Q12 PRN #10 tab 05/17/17 Morphine [Morphine Extended Release Tab] 30 mg PO Q12 #60 tabsr 05/17/17 Zolpidem [Ambien] 5 mg PO HS #30 tab 05/17/17 Aspirin [Ecotrin] 81 mg PO HS 08/18/17 Sertraline [Zoloft] 25 mg PO DAILY #30 tab 08/19/17 Review of Systems - Psychiatric Psychiatric: Abnormal Sleep Pattern, Anxiety, Change in Appetite, Depression Mental Status Examination - Personal Presentation Personal Presentation: Looks stated age - Affect Affect: Broad - Motor Activity Motor Activity: Calm - Reliability in Providing Information Reliability in Providing Information: Good - Speech Speech: Organized - Mood Mood: Depressed - Formal Thought Process Formal Thought Process: No Impairment - Hallucinations/Delusions Additional comments: No AH/VH/paranoia/delusions - Obsessions/Compulsions Obsessions: No Compulsions: No - Cognitive Functions Orientation: Person, Place, Situation, Time Sensorium: Alert Attention/Concentration: Attentive Estimate of Intelligence: Average Judgement: Intact, as evidence by: Insight regarding need for hospitalization Memory: Recent intact, as evidence by: Ability to recall events of the day, Remote intact, as evidenced by: Abilit to recall sig. life events, Remote intact , as evidenced by: Ability to recall historical events - Risk Risk: Diminished functioning - Strength & Assets Inventory Strength & Assets Inventory: Family support, Cooperative - Limitations Limitations: Living alone DSM 5 DX - DSM 5 DSM 5 Diagnosis: Major Depressive Disorder - Recommended/Plan of Treatment Treatment Recommendations and Plan of Treatment: Major Depressive Disorder -Admit to psychiatry unit -Start Zoloft 25 mg PO Daily; r/b/se reviewed; patient informed to call medical professional or go to the nearest ER if she experiences any symptoms of serotonin syndrome -Medicine consult -Patient submitted a 48 hour letter requesting discharge and will be discharge back to home tomorrow as she is not an acute danger to herself or others -Disposition planning Projected ELOS: 2 days Discharge Plan and Discharge Criteria: Discharge to home w/ outpatient follow-up - Smoking Cessation Smoking Cessation Initiated: No Reason for not providing: Not indicated
[2017-08-19 13:52] LABS: FOLATE 13.4 ng/mL
[2017-08-20 06:13] VITALS: BP 145/67; PULSE 62; RESP 16; TEMP 97.7
[2017-08-20] MEDS: Morphine 30 mg SR Tab PO SCH (09:01)
[2017-08-20] MEDS: Pantoprazole 40 mg EC Tab PO SCH (09:02)
--- NOTE | 2017-08-20 09:35 | PCM.PYCHDC ---
Mental Status Examination - Mental Status Examination Orientation: Person, Place, Situation, Time Memory: Intact Mood: Neutral Affect: Broad Speech: Appropriate Attention: WNL Concentration: WNL Association: WNL Fund of Knowledge: WNL Formal Thought Process: No Impairment Description of patient's judgement and insight: Fair I/J Psychotic Thoughts and Behaviors: NO AH/VH/paranoia/delusions Suicidal Ideation: No Current Homicidal Ideation?: No Discharge Summary - Discharge Note Reason for Hospitalization: CC: "I'm depressed." HPI: 72 yo female w/ history of depression, referred by her primary doctor due to depression. Patient was previously on Zoloft, Wellbutrin and Cymbalta simultaneously, but these were discontinued several months ago due to concerns that she may have had symptoms of serotonin syndrome. Patient reports that she is feeling depressed due to her many medical problems, but states that she no longer wants to be in the psychiatric hospital and submitted a 48 hour request to be discharged. She reports sleep/appetite disturbances. No AH/VH/paranoia/ SI/HI. She would like to have retrial of Zoloft because she believes that was most helpful in treating her depression in the past. PPHx: H/o of psychiatric tx w/ Wellbutrin, Zoloft and Duloxetine. No h/o suicide attempts or inpatient psychiatric admission. PMHx: hypertension, hypercholesterolemia, multiple fractures, DM, TIA, chronic pain, osteoporosis, diverticulitis, falls FamHx: aunt-depression; denies substance use SocHx: No drugs, tobacco or ETOH. +1 daughter in [place]. 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 lived alone with 3 cats. PSurgHx: Colostomy, L/S fusion L1-S1 Allergies: iodine, sulfa-rash Laboratory Data: Abnormal Lab Results 08/19/17 08/19/17 08/19/17 07:09 07:09 07:09 Hemoglobin A1c 6.2 Folate 13.4 RPR Nonreactive Consultations:: List each consultation separately and include: 1. Reason for request. 2. Findings. 3. Follow-up Consultations: Medicine consult Summary of Hospital Course include:: 1. Description of specific treatment plan utilized for patients during their course of treatmen. 2. Summarize the time- course for resolution of acute symptoms and/or regressed behaviors. 3. Describe issues identified and worked on during hospitalization. 4. Describe medication utilized. 5. Describe medical problems identified and treated. 6. Reassessment of suicide risk Summary of Hospital Course: Patient was admitted to the psychiatry unit. Individual and group therapy were provided. Patient was restarted on Zoloft 25 mg PO Daily. She submitted a 48 hour letter requesting discharge and she will be discharged at this time as she does not meet criteria for involuntary commitment. She denies current AH/VH/SI /HI. She is hopeful for the future and agreeable to outpatient psychiatric treatment. - Diagnosis (1) Major depressive disorder Current Visit: Yes Status: Chronic - Final Diagnosis (DSM 5) Condition upon Discharge: STABLE DSM 5: Major Depressive Disorder Disposition: HOME/ ROUTINE Follow-up Treatment Plan: Major Depressive Disorder -Continue Zoloft 25 mg PO Daily; r/b/se reviewed; patient informed to call medical professional or go to the nearest ER if she experiences any symptoms of serotonin syndrome -Medicine consult -Patient submitted a 48 hour letter requesting discharge and will be discharge back to home as she is not an acute danger to herself or others Prescriptions/Medication Reconciliation: Sertraline [Zoloft] 25 mg PO DAILY #30 tab - Smoking Cessation Smoking Cessation Medication prescribed: No Reason for not providing: Not indicated - Antipsychotic Medications Pt discharged on 2 or more routine antipsychotic medications: No
== END 2017-08-20 10:00 | disposition home or self-care (01) | DRG 881 ==
LOC: H.ER 11:40 → H.ERHOLD 15:27 → H.STEP 20:03
PROVIDERS: ADMIT Psychiatry & Neurology Psychiatry; ATTEND Psychiatry & Neurology Psychiatry
DX: F32.9 Major depressive disorder, single episode, unspecified (principal); I10 Essential (primary) hypertension; E11.9 Type 2 diabetes mellitus without complications; Z88.2 Allergy status to sulfonamides; Z91.041 Radiographic dye allergy status; J45.909 Unspecified asthma, uncomplicated; E78.00 Pure hypercholesterolemia, unspecified; G89.29 Other chronic pain; Z79.4 Long term (current) use of insulin; E78.5 Hyperlipidemia, unspecified; Z86.73 Personal history of transient ischemic attack (TIA), and cerebral infarction without residual deficits; M81.0 Age-related osteoporosis without current pathological fracture; G47.00 Insomnia, unspecified; K21.9 Gastro-esophageal reflux disease without esophagitis; Z93.3 Colostomy status